=== PATIENT | female | born 1965 | race Caucasian/White ===

== ENCOUNTER → 2020-08-28 09:56 | Outpatient (BNV) | payer OTHER, SELFPAY | PROVIDERS: PCP Internal Medicine; Visit Provider Internal Medicine | DX: C50.911 Malignant neoplasm of unspecified site of right female breast (principal) | CPT/HCPCS: 99213; 99214 ==

== ENCOUNTER 2020-09-03 10:42 | Outpatient (REF) | payer OTHER, SELFPAY ==
[2020-09-03 14:33] LABS: Alanine Aminotransferase 12 U/L (0-31); Albumin Level 4.2 g/dL (3.5-5.0); Alkaline Phosphatase 106 U/L (39-117); Anion Gap 12 (12-20); Aspartate Amino Transferase 13 U/L (5-31); Bilirubin Total 0.3 mg/dL (0.0-1.0); Blood Urea Nitrogen 14 mg/dL (9-16); Calcium 9.3 mg/dL (8.4-10.2); Carbon Dioxide 26 mmol/L (22-29); Chloride 107 mmol/L (96-108); Cholesterol 215 mg/dL; Estimated Glomerular Filt Rate > 60; Glucose Fasting 79 mg/dL (60-99); HDL Cholesterol 47 mg/dL; LDL Cholesterol Calculated 108 mg/dl; Potassium 3.9 mmol/l (3.3-5.1); Sodium 141 mmol/L (135-145); Total Protein 6.7 g/dL (6.5-8.0); Triglycerides 303 mg/dL
[2020-09-03 14:55] LABS: Vitamin D 25-OH Total 59.7 ng/mL (>30)
== END 2020-09-03 10:43 | disposition home or self-care (01) ==
LOC: HO.HMGCLDS 10:42
PROVIDERS: PCP Internal Medicine; Visit Provider Internal Medicine
DX: E55.9 Vitamin D deficiency, unspecified (principal); Z78.0 Asymptomatic menopausal state; I10 Essential (primary) hypertension; E78.1 Pure hyperglyceridemia; C50.911 Malignant neoplasm of unspecified site of right female breast
CPT/HCPCS: 80053; 80061; 82306

== ENCOUNTER 2020-09-30 06:50 | Day surgery (SDC) | payer OTHER, SELFPAY ==
[2020-09-23 15:41] VITALS: BMI 42.1
--- NOTE | 2020-09-26 10:00 | MHC.SHP ---
Pre-Procedural Eval Section A The patient is an INPATIENT: No The History & Physical has been completed within 30 days and I have reviewed it.: Yes Section B Chief Complaint: cataract left eye Allergies: Allergies Allergy/AdvReac Type Severity Reaction Status Date / Time lisinopril [LISINOPRIL] Allergy Unknown COUGH Verified 09/23/20 15:19 metoprolol [METOPROLOL] Allergy Unknown ANKLE Verified 09/23/20 15:19 SWELLING, swelling Plan Diagnosis/Plan: Unchanged I have reviewed the history and physical and performed a pertinent physical examination on my patient. No changes have occurred unless specified.
--- NOTE | 2020-09-27 09:51 | HO.ANESPROP2 ---
Documented by User: Mariela Gonzalez 09/27/20 09:53 HPI - Anesthesia Eval Consult details Narrative: 55yo F for Cataract Extraction IOL Insertion PCP Cleared No prev cataract on record [facility] Past Medical History Medical History (Updated 09/16/20 @ 12:56 by Carline Kruse MD) Essential hypertension Hypertriglyceridemia Infiltrating ductal carcinoma of right breast Menopause Morbid obesity Tubular adenoma of colon Vitamin D deficiency Family History Family History Father Unknown family medical history Mother Depression Lung cancer Smoker Brother No problems noted. Brother No problems noted. Son No problems noted. Son No problems noted. Daughter No problems noted. Daughter No problems noted. Surgical History Surgical History History of colonoscopy History of lumpectomy of right breast Social History Social History Are you a primary health care sanitary technician to a significant other at home: No Do you presently have visiting nurse or other home services: No Alcohol intake: never Smoking Status: Never smoker Second Hand Smoke Exposure: No Use of substances other than those prescribed or required for medical reasons: No Advance Directives: No Advance Directives Information Provided: No Advance Directives on File: No Recently lost weight without trying: No Meds Allergies Allergy/AdvReac Type Severity Reaction Status Date / Time lisinopril [LISINOPRIL] Allergy Unknown COUGH Verified 09/30/20 08:03 metoprolol [METOPROLOL] Allergy Unknown ANKLE Verified 09/30/20 08:03 SWELLING, swelling Home Medications Medication Instructions Recorded Confirmed Type valsartan-hydrochlorothiazide 1 tab PO DAILY 08/28/20 09/23/20 History cholecalciferol (vitamin D3) 50 50 mcg PO DAILY 09/16/20 09/23/20 History mcg (2,000 unit) capsule flu vacc [id number] 6mos up(PF) ml IM ONCE 09/16/20 History magnesium 200 mg tablet 200 mg PO DAILY 09/16/20 09/23/20 History phytonadione (vitamin K1) 100 mcg 100 mcg PO DAILY 09/16/20 09/23/20 History tablet Exam Exam Date and Time: September 27, 2020 0951 Height,Weight and Vital Signs: Height 5 ft 3 in Weight 107.955 kg Assessment and Plan Assessment Anesthesia Assessment: Chart Reviewed Documented by User: Nani Cassidy 09/30/20 08:07 [facility] Past Medical History Medical History (Updated 09/16/20 @ 12:56 by Carline Kruse MD) Essential hypertension Hypertriglyceridemia Infiltrating ductal carcinoma of right breast Menopause Morbid obesity Tubular adenoma of colon Vitamin D deficiency Family History Family History Father Unknown family medical history Mother Depression Lung cancer Smoker Brother No problems noted. Brother No problems noted. Son No problems noted. Son No problems noted. Daughter No problems noted. Daughter No problems noted. Surgical History Surgical History History of colonoscopy History of lumpectomy of right breast Social History Social History Are you a primary health care sanitary technician to a significant other at home: No Do you presently have visiting nurse or other home services: No Alcohol intake: never Smoking Status: Never smoker Second Hand Smoke Exposure: No Use of substances other than those prescribed or required for medical reasons: No Advance Directives: No Advance Directives Information Provided: No Advance Directives on File: No Recently lost weight without trying: No Meds Allergies Allergy/AdvReac Type Severity Reaction Status Date / Time lisinopril [LISINOPRIL] Allergy Unknown COUGH Verified 09/30/20 08:03 metoprolol [METOPROLOL] Allergy Unknown ANKLE Verified 09/30/20 08:03 SWELLING, swelling Home Medications Medication Instructions Recorded Confirmed Type valsartan-hydrochlorothiazide 1 tab PO DAILY 08/28/20 09/23/20 History cholecalciferol (vitamin D3) 50 50 mcg PO DAILY 09/16/20 09/23/20 History mcg (2,000 unit) capsule flu vacc [id number] 6mos up(PF) ml IM ONCE 09/16/20 History magnesium 200 mg tablet 200 mg PO DAILY 09/16/20 09/23/20 History phytonadione (vitamin K1) 100 mcg 100 mcg PO DAILY 09/16/20 09/23/20 History tablet Exam Airway Mallampati Class: III TM Dist: >3cm Neck ROM: Full Heart: RRR Lungs: CTA BL Assessment and Plan Assessment Anesthesia Assessment: Anesthesia Plan Discussed and Chart Reviewed Final Anesthetic Review NPO: Yes (Sip of water with meds) ASA Class: III Final Preanesthetic Review: Meds/Allgs Chart Reviewed and Consent Obtained/Reviewed Patient Risk: Low Procedure Risk: Low Anesthetic Plan Disposition: Standard PACU
[2020-09-30 08:05] VITALS: BP 183/100; PULSE 58; RESP 16; TEMP 36.8; O2SAT 96
[2020-09-30] MEDS: Tetracaine HCl/PF 0.5% Oph Sol 4 ML DROPS 1 DROP EYE-LEFT (08:23)
[2020-09-30] MEDS: Phenylephrine HCL 2.5% Oph SoL 2 ML BOTTLE 1 DROP EYE-LEFT ×3 (08:26→08:34)
[2020-09-30] MEDS: Tropicamide 1 % Ophth Sol 3 ML BTL 1 DROP EYE-LEFT ×3 (08:27→08:36)
[2020-09-30] MEDS: Lactated Ringers 500 ML 50 ML IV (08:37)
--- NOTE | 2020-09-30 09:13 | HO.PNOPHT ---
Ophthalmology Procedure Procedure Date of Service: 09/30/20 Ophthalmology Viscoelastic: Healon Duet Dual Pack Pro Ophthalmology Lenses: TECLAURA [id number] (15) Procedure Notes: PREOPERATIVE DIAGNOSIS: Decreased visual acuity left eye secondary to cataract POSTOPERATIVE DIAGNOSIS: Same PROCEDURE: Left cataract extraction with intraocular lens insertion SURGEON: Douglas Baron M.D. ANESTHESIA: Topical/MAC ESTIMATED BLOOD LOSS: None COMPLICATIONS: None After obtaining informed consent, the patient was brought to the operation room suite and placed in the supine position. After adequate sedation per anesthesia, topical drops of Tetracaine were given to the left eye. The eye was then prepped and draped in the usual sterile fashion. The operating room microscope was then positioned over the operative eye and a lid speculum placed. A paracentesis was created. Viscoelastic was then instilled into the anterior chamber. A three plane incision was then created temporally, utilizing a 2.85 mm keratome. Capsulotomy forceps were then utilized to create a circular tear capsulotomy. Hydrodissection and hydrodelineation were carried out until adequate mobilization of the nucleus occurred. Phacoemulsification was then utilized to remove the dense central nucleus followed by removal of the cortical material utilizing the automated aspiration irrigation unit. Viscoat elastic was instilled into the posterior capsular bag followed by placement of a posterior chamber intraocular lens without difficulty. The residual Viscoat elastic was then removed utilizing the automated IA machine. The wound was check and found to be watertight. The patient tolerated the procedure well and the lid speculum was removed. Intracameral injection of Vigamox 0.1 mL followed by a subtenon injection of Kenalog-40 0.2 mL were administered. The patient will be seen in the a.m.
[2020-09-30 09:14] VITALS: BP 179/88; PULSE 56; RESP 16; TEMP 36.6; O2SAT 97
--- NOTE | 2020-09-30 09:15 | HO.POSTANES ---
Post Anesthesia Evaluation Post Anesthesia Evaluation Vital Signs: Vital Signs Temp Pulse Resp BP Pulse Ox 09/30/20 08:05 98.3 F 58 16 183/100 H 96 Anesthesia: Monitored Mental Status: Awake Pain Control: Satisfactory Nausea/Vomiting: None Hydration: Adequate Anesthesia-Related Issues: No Anes. Related Issues
== END 2020-09-30 09:27 | disposition home or self-care (01) ==
PROVIDERS: PCP Internal Medicine; Visit Provider Ophthalmology
PROC: (CPT 66985; principal; 2020-09-30 09:30)
DX: H25.12 Age-related nuclear cataract, left eye (principal); H54.7 Unspecified visual loss; I10 Essential (primary) hypertension; E55.9 Vitamin D deficiency, unspecified; E66.01 Morbid (severe) obesity due to excess calories; Z68.41 Body mass index [BMI] 40.0-44.9, adult; C50.911 Malignant neoplasm of unspecified site of right female breast; Z79.811 Long term (current) use of aromatase inhibitors; Z79.899 Other long term (current) drug therapy
CPT/HCPCS: 66984; J2250; J3010; J3300; V2632

== ENCOUNTER 2020-10-14 06:47 | Day surgery (SDC) | payer OTHER, SELFPAY ==
[2020-09-23 15:46] VITALS: BMI 42.1
--- NOTE | 2020-10-10 16:08 | MHC.SHP ---
Pre-Procedural Eval Section A The patient is an INPATIENT: No The History & Physical has been completed within 30 days and I have reviewed it.: Yes Section B Chief Complaint: cataract right eye Allergies: Allergies Allergy/AdvReac Type Severity Reaction Status Date / Time lisinopril [LISINOPRIL] Allergy Unknown COUGH Verified 09/30/20 08:03 metoprolol [METOPROLOL] Allergy Unknown ANKLE Verified 09/30/20 08:03 SWELLING, swelling Plan Diagnosis/Plan: Unchanged I have reviewed the history and physical and performed a pertinent physical examination on my patient. No changes have occurred unless specified.
--- NOTE | 2020-10-14 07:45 | P.CONAN_ITS ---
[facility], [facility] Active Problems Active Problems: All Active Problems (Updated 09/16/20 @ 12:56 by Carline nichols MD) Morbid obesity (Acute) Vitamin D deficiency (Acute) Menopause (Acute) Infiltrating ductal carcinoma of right breast (Chronic) Hypertriglyceridemia (Acute) Essential hypertension (Acute) Past Medical History Medical History Essential hypertension Hypertriglyceridemia Infiltrating ductal carcinoma of right breast Menopause Morbid obesity Tubular adenoma of colon Vitamin D deficiency Family History Family History Father Unknown family medical history Mother Depression Lung cancer Smoker Brother No problems noted. Brother No problems noted. Son No problems noted. Son No problems noted. Daughter No problems noted. Daughter No problems noted. Surgical History Surgical History History of colonoscopy History of lumpectomy of right breast Social History Social History Are you a primary resident care manager rn to a significant other at home: No Do you presently have visiting nurse or other home services: No Alcohol intake: never Smoking Status: Never smoker Second Hand Smoke Exposure: No Use of substances other than those prescribed or required for medical reasons: No Have you been hit, kicked, punched, or otherwise hurt by someone within the past year? If so, by whom?: No Advance Directives: No Advance Directives Information Provided: No Advance Directives on File: No Recently lost weight without trying: No Meds Allergies Allergy/AdvReac Type Severity Reaction Status Date / Time lisinopril [LISINOPRIL] Allergy Unknown COUGH Verified 09/30/20 08:03 metoprolol [METOPROLOL] Allergy Unknown ANKLE Verified 09/30/20 08:03 SWELLING, swelling Home Medications Medication Instructions Recorded Confirmed Type cholecalciferol (vitamin D3) 50 50 mcg PO DAILY 09/16/20 09/23/20 History mcg (2,000 unit) capsule flu vacc [id number] 6mos up(PF) ml IM ONCE 09/16/20 History magnesium 200 mg tablet 200 mg PO DAILY 09/16/20 09/23/20 History phytonadione (vitamin K1) 100 mcg 100 mcg PO DAILY 09/16/20 09/23/20 History tablet Exam Exam Date and Time: October 14, 2020 5488 Height,Weight and Vital Signs: Height 5 ft 3 in Weight 107.955 kg Airway Mallampati Class: II TM Dist: >3cm Neck ROM: Full Loose/Missing/Broken Teeth: No Heart: RRR Lungs: CTA Assessment and Plan Assessment Anesthesia Assessment: Anesthesia Plan Discussed and Chart Reviewed Final Anesthetic Review NPO: Yes ASA Class: II Final Preanesthetic Review: Meds/Allgs Chart Reviewed, Consent Obtained/Reviewed and Anes Risks/Benef Reviewed Patient Risk: Low Procedure Risk: Low Anesthetic Plan Anesthetic Plan: MAC: Disposition: Standard PACU
[2020-10-14 07:46] VITALS: BP 152/82; PULSE 65; RESP 16; TEMP 36.5; O2SAT 96
[2020-10-14] MEDS: Tetracaine HCl/PF 0.5% Oph Sol 4 ML DROPS 1 DROP EYE-RIGHT (07:55)
[2020-10-14] MEDS: Tropicamide 1 % Ophth Sol 3 ML BTL 1 DROP EYE-RIGHT ×3 (07:56→08:06)
[2020-10-14] MEDS: Phenylephrine HCL 2.5% Oph SoL 2 ML BOTTLE 1 DROP EYE-RIGHT ×3 (08:00→08:08)
[2020-10-14] MEDS: Lactated Ringers 500 ML 50 ML IV (08:05)
--- NOTE | 2020-10-14 09:03 | HO.PNOPHT ---
Ophthalmology Procedure Procedure Date of Service: 10/14/20 Ophthalmology Viscoelastic: Healon Duet Dual Pack Pro Ophthalmology Lenses: TECNIS [id number] (15.5) Procedure Notes: PREOPERATIVE DIAGNOSIS: Decreased visual acuity right eye secondary to cataract POSTOPERATIVE DIAGNOSIS: Same PROCEDURE: Right cataract extraction with intraocular lens insertion SURGEON: Douglas Baron M.D. ANESTHESIA: Topical/MAC ESTIMATED BLOOD LOSS: None COMPLICATIONS: None After obtaining informed consent, the patient was brought to the operating room suite and placed in the supine position. After adequate sedation per anesthesia, topical drops of Tetracaine were given to the right eye. The eye was then prepped and draped in the usual sterile fashion. The operating room microscope was then positioned over the operative eye and a lid speculum placed. A paracentesis was created. Viscoelastic was then instilled into the anterior chamber. A three plane incision was then created temporally, utilizing a 2.85 mm keratome. Capsulotomy forceps were then utilized to create a circular tear capsulotomy. Hydrodissection and hydrodelineation were carried out until adequate mobilization of the nucleus occurred. Phacoemulsification was then utilized to remove the dense central nucleus followed by removal of the cortical material utilizing the automated aspiration irrigation unit. Viscoelastic was instilled into the posterior capsular bag followed by placement of a posterior chamber intraocular lens without difficulty. The residual Viscoelastic was then removed utilizing the automated IA machine. The wound was checked and found to be watertight. The patient tolerated the procedure well and the lid speculum was removed. Intracameral injection of Vigamox 0.1 mL followed by a subtenon injection of Kenalog-40 0.2 mL were administered. The patient will be seen in the a.m.
[2020-10-14 09:07] VITALS: BP 145/76; PULSE 54; RESP 16; TEMP 36.6; O2SAT 97
--- NOTE | 2020-10-14 09:08 | HO.POSTANES ---
Post Anesthesia Evaluation Post Anesthesia Evaluation Vital Signs: Vital Signs Temp Pulse Resp BP Pulse Ox 10/14/20 07:46 97.7 F 65 16 152/82 H 96 Anesthesia: Monitored Mental Status: Awake Pain Control: Satisfactory Nausea/Vomiting: None Hydration: Adequate Anesthesia-Related Issues: No Anes. Related Issues
== END 2020-10-14 09:40 | disposition home or self-care (01) ==
PROVIDERS: PCP Internal Medicine; Visit Provider Ophthalmology
PROC: (CPT 66985; principal; 2020-10-14 08:40)
DX: H25.11 Age-related nuclear cataract, right eye (principal); I10 Essential (primary) hypertension; Z79.899 Other long term (current) drug therapy
CPT/HCPCS: 66984; J2250; J3010; J3300; V2632

== ENCOUNTER 2021-02-18 10:49 | Outpatient (REF) | payer OTHER, SELFPAY ==
[2021-02-18 13:49] LABS: MANUAL DIFF FLAG NO
[2021-02-18 14:13] LABS: Basophils Absolute Auto 0.1 X10*3/uL (0.0-0.2); Basophils Percent Auto 0.7 % (0-2); Eosinophils Absolute Auto 0.1 X10*3/uL (0.0-0.4); Eosinophils Percent Auto 1.8 % (0-4); Hematocrit 42.8 % (37-47); Hemoglobin 14.1 g/dl (12.0-16.0); Imm Gran Abs Auto 0.02 X10*3/uL (0.00-0.03); Imm Gran Pct Auto 0.3 % (0.0-0.4); Lymphocytes Percent Auto 26.9 % (20-40); Mean Corpuscular HGB Conc 32.9 g/dl (31.0-35.0); Mean Corpuscular Hemoglobin 28.7 pg (27.0-33.0); Mean Platelet Volume 10.2 fL (9.4-12.3); Monocytes Absolute Auto 0.7 X10*3/uL (0.1-1.2); Monocytes Percent Auto 9.4 % (2-11); Neutrophils Absolute Auto 4.4 X10*3/uL (2.0-8.3); Neutrophils Percent Auto 60.9 % (45-73); Platelet Count 252 X10*3/uL (160-400); Red Blood Count 4.92 X10*6/uL (4.20-5.50); Red Cell Distribution Width 12.9 % (11.0-16.0); White Blood Count 7.3 X10*3/uL (4.8-10.8)
[2021-02-18 14:42] LABS: Glucose Fasting 72 mg/dL (60-99)
[2021-02-18 15:13] LABS: Alanine Aminotransferase 13 U/L (0-31); Albumin Level 4.3 g/dL (3.5-5.0); Alkaline Phosphatase 99 U/L (39-117); Anion Gap 12 (12-20); Aspartate Amino Transferase 16 U/L (5-31); Bilirubin Total 0.5 mg/dL (0.0-1.0); Blood Urea Nitrogen 18 mg/dL (9-16); Calcium 9.8 mg/dL (8.4-10.2); Carbon Dioxide 27 mmol/L (22-29); Chloride 108 mmol/L (96-108); Cholesterol 221 mg/dL; Estimated Glomerular Filt Rate > 60; Glucose Random 71 mg/dL (60-115); HDL Cholesterol 49 mg/dL; LDL Cholesterol Calculated 124 mg/dl; Potassium 4.3 mmol/L (3.3-5.1); Sodium 143 mmol/L (135-145); Total Protein 6.8 g/dL (6.5-8.0); Triglycerides 241 mg/dL
== END 2021-02-18 10:50 | disposition home or self-care (01) ==
LOC: HO.HMGCLDS 10:49
PROVIDERS: Internal Medicine; PCP Internal Medicine; Visit Provider Internal Medicine
DX: Z00.01 Encounter for general adult medical examination with abnormal findings (principal); R59.0 Localized enlarged lymph nodes; E78.00 Pure hypercholesterolemia, unspecified; E66.01 Morbid (severe) obesity due to excess calories; E55.9 Vitamin D deficiency, unspecified; E78.1 Pure hyperglyceridemia; I10 Essential (primary) hypertension; C50.911 Malignant neoplasm of unspecified site of right female breast; Z78.0 Asymptomatic menopausal state
CPT/HCPCS: 36415; 80053; 80061; 82306; 82947; 85025

== ENCOUNTER 2021-02-27 07:20 | Outpatient (REF) | payer OTHER, SELFPAY ==
--- NOTE | ~2021-02-27 | MM_ITS ---
EXAMINATION: MM SCREENING DIGITAL BREAST TOMOSYNTHESIS, BILATERAL CLINICAL INFORMATION: Screening. Asymptomatic. Right lumpectomy for invasive breast cancer, 2014. Due for yearly. COMPARISON: Mammography: 02/19/2020, 12/15/2018, 12/02/2017, 10/19/2016 TECHNIQUE: Digital breast tomosynthesis is performed in both the craniocaudal and mediolateral oblique views along with computer-aided detection (CAD). Synthesized 2D images are generated from the tomosynthesis. FINDINGS: There are scattered areas of fibroglandular density (ACR BI-RADS breast composition Category b). Parenchymal pattern is similar to prior studies. There is no interval mass or architectural abnormality or abnormal calcifications in either breast. The right breast has post therapy changes with stable scarring posterior upper breast along with regional coarse benign dystrophic calcifications. There are no significant changes from prior studies. MM/MM tomosynthesis screening BI IMPRESSION: No significant changes from prior exams. Post therapy changes right breast. ASSESSMENT: BI-RADS 2: Benign RECOMMENDATION: Routine annual mammography screening. This patient's information was entered into a reminder system with a target due date for their next mammogram.
== END 2021-02-27 07:21 | disposition home or self-care (01) ==
LOC: HO.MAMMO 07:20
PROVIDERS: Visit Provider Internal Medicine
DX: Z12.31 Encounter for screening mammogram for malignant neoplasm of breast (principal)
CPT/HCPCS: 77063; 77067

== ENCOUNTER 2021-03-21 13:20 | Outpatient (REF) | payer OTHER, SELFPAY ==
--- NOTE | ~2021-03-21 | MM_ITS ---
EXAMINATION: BONE DENSITOMETRY CLINICAL INDICATION: On letrozole. COMPARISON: Baseline BD dated 10/11/2015. TECHNIQUE: Using a [employer] DXA System (software version: 13.1) manufactured by [employer] dual-energy x-ray absorptiometry was performed of the lumbar spine and left hip. The images are of good technical quality. Summary results are attached. FINDINGS: AP SPINE L1-L4: Current: BMD 1.172 g/cm2, Z-score -0.2, T-score -0.1, normal, 1.7% decrease from baseline (<5% change is not significant). Baseline: BMD 1.192 g/cm2. LEFT FEMUR, NECK: Current: BMD 0.803 g/cm2, Z-score -1.3, T-score -1.7, osteopenia. Baseline: BMD 0.936 g/cm2. LEFT FEMUR, TOTAL: Current: BMD 0.908 g/cm2, Z-score -0.8, T-score -0.8, normal, 6.1% decrease from baseline (<5% change is not significant). Baseline: BMD 0.967 g/cm2. IDENTIFIED RISK FACTORS: Low calcium intake. Menopause. Thiazide. HISTORY OF FRACTURE: None listed. MEDICATIONS: Multivitamin. Vitamin D. Letrozole. MM/XR DEXA axial skeleton IMPRESSION: 1. DIAGNOSIS: Osteopenia based on the lowest T-score value of -1.7 in the femoral neck applying World Health Organization criteria. 2. 10-YEAR FRACTURE RISK PREDICTION, FRAX: Major osteoporotic fracture (clinical spine, forearm, hip or shoulder) 6.8%. Hip fracture 0.6%. 3. Treatment Recommendations: NOF guidelines recommend consideration for treatment in postmenopausal women and men age 50 and older presenting with the following: -A hip or vertebral (clinical or morphometric) fracture. -T-score less than or equal to -2.5 at the femoral neck or spine after appropriate evaluation to exclude secondary causes. -Low bone mass at the hip or spine and a 10-year fracture probability by FRAX of greater than or equal to 3% for hip fracture or greater than or equal to 20% for major osteoporotic fracture based on the [place] adapted WHO algorithm. 4. Other Recommendations: All treatment decisions require clinical judgment and consideration of individual patient factors, including patient preferences, comorbidities, previous drug use, risk factors not captured in the FRAX model (e.g. frailty, falls, vitamin D deficiency, increased bone turnover, interval significant decline in bone density) and possible under or overestimation of fracture risk by FRAX. Additional medical evaluation for secondary cause of low bone mineral density may be appropriate. FUTURE SCAN RECOMMENDATION: People with diagnosed cases of osteoporosis or at high risk for fracture should have regular bone mineral density tests. For patients eligible for Medicare, routine testing is allowed once every 2 years. The testing frequency can be increased to one year for patients who have rapidly progressing disease, those who are receiving or discontinuing medical therapy to restore bone mass, or have additional risk factors.
== END 2021-03-21 13:21 | disposition home or self-care (01) ==
LOC: HO.MAMMO 13:20
PROVIDERS: Visit Provider Internal Medicine
DX: Z13.820 Encounter for screening for osteoporosis (principal); M81.0 Age-related osteoporosis without current pathological fracture; M85.80 Other specified disorders of bone density and structure, unspecified site; Z78.0 Asymptomatic menopausal state; Z79.899 Other long term (current) drug therapy
CPT/HCPCS: 77080

== ENCOUNTER 2022-02-19 10:03 | Outpatient (REF) | payer OTHER, SELFPAY ==
[2022-02-19 11:17] LABS: MANUAL DIFF FLAG NO
[2022-02-19 11:24] LABS: Basophils Absolute Auto 0.1 X10*3/uL (0.0-0.2); Basophils Percent Auto 0.6 % (0-2); Eosinophils Absolute Auto 0.1 X10*3/uL (0.0-0.4); Eosinophils Percent Auto 1.7 % (0-4); Hematocrit 43.1 % (37.0-47.0); Hemoglobin 14.4 g/dl (12.0-16.0); Imm Gran Abs Auto 0.03 X10*3/uL (0.00-0.03); Imm Gran Pct Auto 0.4 % (0.0-0.4); Lymphocytes Absolute Auto 2.1 X10*3/uL (1.2-4.9); Lymphocytes Percent Auto 25.2 % (20-40); Mean Corpuscular HGB Conc 33.4 g/dl (31.0-35.0); Mean Corpuscular Hemoglobin 28.6 pg (27.0-33.0); Mean Corpuscular Volume 85.5 fL (80.0-98.0); Mean Platelet Volume 10.1 fL (9.4-12.3); Monocytes Absolute Auto 0.7 X10*3/uL (0.1-1.2); Monocytes Percent Auto 8.6 % (2-11); Neutrophils Absolute Auto 5.4 x10*3/uL (2.0-8.3); Neutrophils Percent Auto 63.5 % (45-73); Platelet Count 260 X10*3/uL (160-400); Red Blood Count 5.04 X10*6/uL (4.20-5.50); Red Cell Distribution Width 12.8 % (11.0-16.0); White Blood Count 8.4 X10*3/uL (4.8-10.8)
[2022-02-19 11:38] LABS: Alanine Aminotransferase 14 U/L (0-31); Anion Gap 12 (12-20); Aspartate Amino Transferase 15 U/L (5-31); Blood Urea Nitrogen 19 mg/dL (9-16); Calcium 9.6 mg/dL (8.4-10.2); Carbon Dioxide 27 mmol/L (22-29); Chloride 106 mmol/L (96-108); Cholesterol 216 mg/dL; Estimated Glomerular Filt Rate > 60; Glucose Fasting 84 mg/dL (60-99); HDL Cholesterol 46 mg/dL; LDL Cholesterol Calculated 137 mg/dl; Potassium 4.4 mmol/L (3.3-5.1); Sodium 141 mmol/L (135-145); Triglycerides 167 mg/dL
[2022-02-19 12:02] LABS: Vitamin D 25-OH Total 51.5 ng/mL (>30)
== END 2022-02-19 10:04 | disposition home or self-care (01) ==
LOC: HO.HMGCLDS 10:03
PROVIDERS: Visit Provider Internal Medicine
DX: Z00.01 Encounter for general adult medical examination with abnormal findings (principal); C50.911 Malignant neoplasm of unspecified site of right female breast; E55.9 Vitamin D deficiency, unspecified; E66.01 Morbid (severe) obesity due to excess calories; E78.1 Pure hyperglyceridemia; I10 Essential (primary) hypertension; Z78.0 Asymptomatic menopausal state; Z79.811 Long term (current) use of aromatase inhibitors
CPT/HCPCS: 36415; 80048; 80061; 82306; 84450; 84460; 85025

== ENCOUNTER 2022-03-02 07:41 | Outpatient (REF) | payer OTHER, SELFPAY ==
--- NOTE | ~2022-03-02 | MM_ITS ---
EXAMINATION: MM SCREENING DIGITAL BREAST TOMOSYNTHESIS, BILATERAL CLINICAL INFORMATION: Screening. Asymptomatic. Prior history right invasive breast cancer status post lumpectomy, 2013. COMPARISON: Mammography: 02/27/2021, 02/19/2020, 12/15/2018 TECHNIQUE: Digital breast tomosynthesis is performed in both the craniocaudal and mediolateral oblique views along with computer-aided detection (CAD). Synthesized 2D images are generated from the tomosynthesis. Additional bilateral MLO views are provided. FINDINGS: There are scattered areas of fibroglandular density (ACR BI-RADS breast composition Category b). Parenchymal pattern is similar to prior exams and there is no developing density or interval mass or interval architectural abnormality. There are scattered bilateral benign calcifications again seen. Right breast shows post therapy changes with old scarring and dystrophic calcifications as before. The axilla are unremarkable. No significant changes. MM/MM tomosynthesis screening BI IMPRESSION: No mammographic evidence of malignancy. Post therapy changes right breast. ASSESSMENT: BI-RADS 2: Benign RECOMMENDATION: Routine annual mammography screening. This patient's information was entered into a reminder system with a target due date for their next mammogram.
== END 2022-03-02 07:42 | disposition home or self-care (01) ==
LOC: HO.MAMMO 07:41
PROVIDERS: PCP Internal Medicine; Visit Provider Internal Medicine
DX: Z12.31 Encounter for screening mammogram for malignant neoplasm of breast (principal)
CPT/HCPCS: 77063; 77067

== ENCOUNTER 2022-05-04 14:35 | Outpatient (REF) | payer OTHER, SELFPAY ==
[2022-05-07 20:32] LABS: HPV mRNA E6/E7 rflx Not Detected (Not Detected)
== END 2022-05-04 14:36 | disposition home or self-care (01) ==
LOC: HO.LAB 14:35
PROVIDERS: Visit Provider Obstetrics & Gynecology
DX: Z01.419 Encounter for gynecological examination (general) (routine) without abnormal findings (principal); Z11.51 Encounter for screening for human papillomavirus (HPV)
CPT/HCPCS: 87624; 88142

== ENCOUNTER → 2022-11-10 09:15 | Outpatient (BNVA) | payer OTHER, SELFPAY | PROVIDERS: PCP Internal Medicine; Visit Provider Nurse Practitioner Family | DX: G47.33 Obstructive sleep apnea (adult) (pediatric) (principal); E66.01 Morbid (severe) obesity due to excess calories; Z68.42 Body mass index [BMI] 45.0-49.9, adult; I10 Essential (primary) hypertension; Z99.89 Dependence on other enabling machines and devices | CPT/HCPCS: 99202 ==

== ENCOUNTER → 2022-12-03 19:30 | Outpatient (REF) | payer OTHER, SELFPAY | LOC: HO.SL 19:30 | PROVIDERS: PCP Internal Medicine; Visit Provider Nurse Practitioner Family | DX: G47.33 Obstructive sleep apnea (adult) (pediatric) (principal) | CPT/HCPCS: 95810 ==

== ENCOUNTER 2023-03-03 12:41 | Outpatient (REF) | payer OTHER, SELFPAY ==
--- NOTE | ~2023-03-03 | MM_ITS ---
EXAMINATION: MM SCREENING DIGITAL BREAST TOMOSYNTHESIS, BILATERAL CLINICAL INFORMATION: Screening. Asymptomatic. History of prior treated right breast cancer. COMPARISON: Mammography: This study is compared to prior mammograms dating back to 2018. TECHNIQUE: Digital breast tomosynthesis is performed in both the craniocaudal and mediolateral oblique views along with computer-aided detection (CAD). Synthesized 2D images are generated from the tomosynthesis. FINDINGS: There are scattered areas of fibroglandular density (ACR BI-RADS breast composition Category b). There are no significant masses, abnormal calcifications, or other abnormalities. There are postsurgical changes in the upper-outer quadrant of the right breast. There are coarse, benign, dystrophic calcifications in the area of the surgical bed in the right upper-outer quadrant. MM/MM tomosynthesis screening BI IMPRESSION: No mammographic evidence of malignancy. ASSESSMENT: BI-RADS BI-RADS 2 - Benign Findings RECOMMENDATION: Routine annual mammography screening. 1 year F/U This patient's information was entered into a reminder system with a target due date for their next mammogram.
== END 2023-03-03 12:42 | disposition home or self-care (01) ==
LOC: HO.MAMMO 12:41
PROVIDERS: PCP Internal Medicine; Visit Provider Internal Medicine
DX: Z12.31 Encounter for screening mammogram for malignant neoplasm of breast (principal)
CPT/HCPCS: 77063; 77067

== ENCOUNTER → 2023-03-03 13:00 | Outpatient (BNV) | payer OTHER, SELFPAY | PROVIDERS: PCP Internal Medicine; Visit Provider Radiology Diagnostic Radiology | DX: Z12.31 Encounter for screening mammogram for malignant neoplasm of breast (principal) | CPT/HCPCS: 77063; 77067 ==

== ENCOUNTER 2023-03-30 09:17 | Outpatient (AMB) | payer OTHER, SELFPAY ==
[2023-03-30 09:18] VITALS: BP 170/104; PULSE 66; O2SAT 98; BMI 45.3
--- NOTE | 2023-03-30 09:18 | MHC.OFFVIS ---
Intake Vital Signs 03/30/23 09:18 Height 5 ft 3 in Weight 256 lb BMI 45.3 BP 170/104 H Blood Pressure Location Rt brachial Position Sitting Pulse 66 Pulse Source Pulse Oximeter Pulse Oximetry (%) 98 Oxygen Delivery Method Room Air Intake Visit Reasons: 2 mo follow up for REGIS - Confirmed Intake Note: Patient presents for 2 month follow up REGIS. 'I just got my new machine Allergies lisinopril [LISINOPRIL] Allergy (Unknown, Verified 03/30/23 09:20) COUGH metoprolol [METOPROLOL] Allergy (Unknown, Verified 03/30/23 09:20) ANKLE SWELLING, swelling HPI HPI Comments History of Present Illness Details 57 y/o female patient presents for follow up of sleep study. The PSG sleep study result was significant for moderate degree of sleep apnea with increased severity in REM. The AHI was 16/hr, REM AHI was 73/hr and oxygen arlin was 82%. Pt started APAP [id number]. The compliance and therapy response (01/14/23-03/21/23) reviewed. The usage days 100% and the average usage hours 8 hours 20 min. The mean pressure was 7.1 and AHI was 1.4/hr. Pt reports that she feels not getting enough air with starting pressure. She was on 7-11 cmH2O and she used to start with pressure 7 cmH2O. Pt states that she is sleeping better with new CPAP, feels more rested at night. She has more energy during the daytime and tries to do exercise and manage diet. However, she has hard time to lose wt and interested in wt management consultation regarding gastric balloon. [facility] Medical History Breast cancer Essential hypertension Hypertriglyceridemia Infiltrating ductal carcinoma of right breast Menopause Morbid obesity REGIS on CPAP Tubular adenoma of colon Vitamin D deficiency Surgical History History of colonoscopy History of lumpectomy of right breast Hx of cataract extraction Family History Father Unknown family medical history Cancer Pneumonia due to COVID-19 virus Mother Depression Mental health disorder Lung cancer Smoker Brother No problems noted. Brother No problems noted. Son No problems noted. Son No problems noted. Daughter No problems noted. Daughter No problems noted. Paternal Grandmother Cancer Social History Household Members: Spouse Housing: House Are you a primary career development consultant to a significant other at home: No Do you presently have visiting nurse or other home services: No Alcohol intake: current Alcohol intake frequency: holidays/special occasions only Patient Tobacco Use Status: Never used Tobacco e-Cigarette/Vaping Use: Never Used Second Hand Smoke Exposure: No service: No Current occupational status: employed Cognitive needs: No Hearing needs: No Vision needs: No Review of Systems Const All systems reviewed & are unremarkable except as noted in HPI and below ENT Reports Normal hearing present Neuro Reports Normal hearing present Physical Exam Vital Signs: Last Vital Signs Pulse 66 03/30/23 09:18 BP 170/104 H 03/30/23 09:18 Pulse Ox 98 03/30/23 09:18 Oxygen Delivery Method Room Air 03/30/23 09:18 BMI result Body Mass Index 45.3 Const General: cooperative Nutritional Appearance: obese Orientation/consciousness: patient oriented x3 HEENT Throat: Yes other (mallampati grade 4 ) Neck Neck: Yes full ROM and Yes supple Resp Effort & Inspection: normal respiratory effort and able to speak in complete sentences Neuro General: patient oriented x3, gait normal and moves all extremities Cranial nerves: Yes Bilaterally intact EOM present, Yes Normal facial strength present, Yes Midline tongue present, Yes Symmetric palate elevation present, Yes Normal hearing present, Yes Ability to bilaterally rotate head present and Yes Ability to bilaterally elevate shoulders present Cognition (Neuro): normal cognition Gait exam (Neuro): Normal gait present Motor exam (neuro): Pronator motor function not present and no tremor noted Psych Appearance: grossly normal Mental Status: mental status grossly normal Speech and movement: Normal speech and movement present Affect: normal affect Attitude: cooperative Assessment & Plan Assessment & Plan (1) REGIS on CPAP: Code(s): G47.33 - Obstructive sleep apnea (adult) (pediatric); Z99.89 - Dependence on other enabling machines and devices (2) Morbid obesity: Code(s): E66.01 - Morbid (severe) obesity due to excess calories Plan Change CPAP pressure to 7-11 cmH2O. Stressed compliance, use CPAP nightly and more than 4 hours. Refer patient to wt management program for gastric balloon consultation. Orders: Referrals Medical Weight Management Referral E66.01 - Morbid (severe) obesity due to excess calories, G47.33 - Obstructive sleep apnea (adult) (pediatric), Z99.89 - Dependence on other enabling machines and devices Coding Level of Care Code Est Pt Level 4 (66261) Diagnoses REGIS on CPAP G47.33; Z99.89 Morbid obesity E66.01
== END 2023-03-30 09:37 | disposition home or self-care (01) ==
LOC: HO.HSMC 09:17
PROVIDERS: PCP Internal Medicine; Visit Provider Nurse Practitioner Family
DX: G47.33 Obstructive sleep apnea (adult) (pediatric) (principal); Z99.89 Dependence on other enabling machines and devices; E66.01 Morbid (severe) obesity due to excess calories
CPT/HCPCS: 99214

== ENCOUNTER → 2023-03-30 09:17 | Outpatient (BNVA) | payer OTHER, SELFPAY | PROVIDERS: PCP Internal Medicine; Visit Provider Nurse Practitioner Family | DX: G47.33 Obstructive sleep apnea (adult) (pediatric) (principal); E66.01 Morbid (severe) obesity due to excess calories; Z68.42 Body mass index [BMI] 45.0-49.9, adult; Z99.89 Dependence on other enabling machines and devices | CPT/HCPCS: 99212 ==

== ENCOUNTER 2023-05-20 08:25 | Outpatient (AMB) | payer OTHER, SELFPAY ==
--- NOTE | 2023-05-20 08:33 | A.OFFPC_ITS ---
Vital Signs 05/20/23 08:34 Height 5 ft 3 in Weight 254 lb 6 oz BMI 45.1 BP 140/80 H Blood Pressure Location Rt brachial Position Sitting Pulse 60 Pulse Source Pulse Oximeter Pulse Oximetry (%) 98 Intake Visit Reasons: Annual PE Intake Note: pt is here for annual exam Hog Raiser Required: No Accompanied by: Self / Same As Patient Allergies lisinopril [LISINOPRIL] Allergy (Unknown, Verified 05/20/23 09:02) COUGH metoprolol [METOPROLOL] Allergy (Unknown, Verified 05/20/23 09:02) ANKLE SWELLING, swelling Medication List - Last Reconciled 05/20/23 by Carline Kruse MD carvedilol 25 mg PO BID cholecalciferol (vitamin D3) 50 mcg PO DAILY losartan-hydrochlorothiazide 100-12.5 mg 1 tab PO DAILY magnesium 200 mg PO DAILY multivitamin 1 tab PO DAILY phytonadione (vitamin K1) 100 mcg PO DAILY Tobacco use date assessed: 05/20/23 Dental Screening Dental Screen Date: 05/20/23 Did you have a dental visit in the last 12 months?: No Did you have a dental problem in the last 6 months where you did not have access to dental care?: No Was dental information given to patient?: Yes HPI Annual PE HPI Details 57-year-old lady here today for physical exam and to have 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 She has hypertension, better controlled with current medication. She is up-to-date with her screening mammogram done earlier this year, and had a bone density scan done 2020 which showed osteopenia beginning in left femoral neck . She is compliant with her CPAP has obstructive sleep apnea. She has history of infiltrating ductal carcinoma of right breast currently on letrozole followed by Dr. Brown. She has been checking her blood pressure at home and it has usually been running around 130/80. Denies having any headaches, no chest pain, no shortness of breath, no lightheadedness. Complains of mildly itchy bump on left lower eyelid, which has been present for the last 2 days. She thinks that she might have had some sand flow [place] her eye at the beach [place]. Has been trying to lose weight through diet and exercise, not been very successful. Would like to be referred to the weight management clinic and [facility] to discuss other treatment options were weight loss. PFSH Medical History REGIS on CPAP Breast cancer Morbid obesity Vitamin D deficiency Menopause Tubular adenoma of colon Infiltrating ductal carcinoma of right breast Hypertriglyceridemia Essential hypertension Surgical History Hx of cataract extraction History of colonoscopy History of lumpectomy of right breast Family History Father Unknown family medical history Cancer Pneumonia due to COVID-19 virus Mother Depression Mental health disorder Lung cancer Smoker Brother No problems noted. Brother No problems noted. Son No problems noted. Son No problems noted. Daughter No problems noted. Daughter No problems noted. Paternal Grandmother Cancer Social History Household Members: Spouse Housing: House Are you a primary home care scheduler to a significant other at home: No Do you presently have visiting nurse or other home services: No Alcohol intake: current Alcohol intake frequency: holidays/special occasions only Patient Tobacco Use Status: Never used Tobacco e-Cigarette/Vaping Use: Never Used Second Hand Smoke Exposure: No service: No Current occupational status: employed Cognitive needs: No Hearing needs: No Vision needs: No Questionnaire PHQ-9 Over the last 2 weeks, how often have you been bothered by any of the following problems? 1. Little interest or pleasure in doing things: not at all 2. Feeling down, depressed, or hopeless: not at all 3. Trouble falling or staying asleep, or sleeping too much: not at all 4. Feeling tired or having little energy: several days 5. Poor appetite or overeating: several days 6. Feeling bad about yourself - or that you are a failure or have let yourself or your family down: not at all 7. Trouble concentrating on things, such as reading the newspaper or watching television: not at all 8. Moving or speaking so slowly that other people could have noticed. Or the opposite - being so fidgety or restless that you have been moving around a lot more than usual: not at all 9. Thoughts that you would be better off or of hurting yourself in some way: not at all Total score: 2 Depression Screening Interpretation: Negative 89494 - PHQ-9 Billing: Yes Source: Developed by Drs. Delano Cornoel, Ernesto Farah and colleagues, with an educational isac from [employer]. Thrive Questionnaire Date Thrive assessed: 05/20/23 I am a: Patient What is your living situation today?: I have a steady place to live Within the past 12 months, did the food you bought not last and you didn't have the money to get more?: Never true Within the past 12 months, did you worry whether your food would run out before you got money to buy more?: Never true Do you have trouble paying for medicines?: No Do you have trouble getting transportation to medical appointments?: No Do you have trouble paying your heating and electricity bill?: No Do you have trouble taking care of your child, family member or friend?: No Do you have trouble with day-to-day activities such as bathing, preparing meals, shopping, managing finances, etc.?: No Are you currently unemployed and looking for a job?: No Are you interested in more education?: No Please select the resources that you would like help with: None Currently or been in a relationship where the following occur: no concerns reported AUDIT C Alcohol Use Questionnaire (AUDIT-C) 1. How often do you have a drink containing alcohol?: Never Total Score: 0 ALFREDO-7 AMB Questionnaire ALFREDO-7 Date ALFREDO - 7 assessed: 05/20/23 Feeling nervous, anxious, or on edge: 0 = Not at all Not being able to stop or control worryin = Not at all Worrying too much about different things: 0 = Not at all Trouble relaxin = Not at all Being so restless that it is hard to sit still: 0 = Not at all Becoming easily annoyed or irritable: 0 = Not at all Feeling afraid as if something awful might happen: 0 = Not at all Total ALFREDO-7 score (0-4 normal; 5-9 mild; 10-14 moderate; 15-21 severe): 0 Source: Developed by Arely Howard Kurt Kroenke and colleagues, with an educational isac from [employer]. LAFREDO-7 Assessment Billing ALFREDO-7 Assessment Tool: ALFREDO-7 Assessment 85752 Review of Systems Const Denies body aches, Denies fatigue, Denies fever(s), Denies lethargy, Denies malaise and Denies weakness Eyes Details: Up-to-date with her eye exam, sees Dr. Baron Denies eye discharge and Denies itchy eyes ENT Reports Normal hearing present, Denies dizziness, Denies nasal congestion, Denies nasal discharge and Denies sore throat Card Denies rapid heart rate, Denies irregular heart rhythm, Denies palpitations and Denies dyspnea Resp Denies chest congestion, Denies cough, Denies dyspnea and Denies wheezing GI Denies abdominal pain, Denies change in bowel habits and Denies heartburn Denies urinary frequency, Denies dysuria and Denies urinary urgency Musc Reports no additional complaints Skin/Breast Denies breast swelling, Denies breast pain, Denies lesions and Denies rash Neuro Reports Normal hearing present, Denies dizziness, Denies Sensory deficit (Neuro) and Denies weakness Psych Reports no additional complaints Endo Denies fatigue, Denies polydipsia, Denies polyuria and Denies palpitations Tobias/Lymph Denies easy bruising Aller/Immun Denies itchy eyes, Denies seasonal rhinorrhea and Denies wheezing Physical exam (Primary Care) Vital Signs: Last Vital Signs Pulse 60 05/20/23 08:34 BP 140/80 H 05/20/23 08:34 Pulse Ox 98 05/20/23 08:34 BMI result Body Mass Index 45.1 BMI Assessment/Plan discussion: High BMI High, discussed plan: lifestyle, weight reduction, dietary and physical activity Tobacco/Smoking Status: Tobacco use Status Tobacco use date assessed 05/20/23 05/20/23 08:37 Patient Tobacco Use Status Never used Tobacco 05/20/23 08:33 e-Cigarette/Vaping Use Never Used 05/20/23 08:33 PHQ-9: PHQ-9 Score PHQ-9: Total score 2 05/20/23 23:09 Depression Screening Interpretation: Negative Thrive Assessment: Date of Thrive Assessment Date Thrive assessed 05/20/23 05/20/23 09:33 Currently or been in a relationship where the following occur: no concerns reported Const General: cooperative and no acute distress Nutritional Appearance: obese morbidly obese Orientation/consciousness: patient oriented x3 Limitations: no limitations HENMT Head: Yes normal to inspection and Yes normocephalic Ears: hearing grossly normal bilaterally, external ears normal, TM's normal bilaterally and EAC's normal General nose exam: Normal external nose present and No nasal discharge present Face and sinus: Yes face symmetric Mouth: Normal oral and palatal mucosa present, lip normal, oropharynx normal and moist mucous membranes Eyes Eyelids: Yes eyelid abnormality (External hordeolum on left lower eyelid) Conjunctivae: conjunctivae normal Sclerae: sclerae normal Pupils: Equal, round and reactive pupils present EOM: EOMs intact bilaterally Neck Neck: Yes full ROM and Yes no lymphadenopathy Thyroid: Thyroid normal Carotids: normal carotid upstroke Lymphatic: no lymphadenopathy noted Chest Chest palpation & inspection: normal inspection of the chest Breast/axilla palpation: normal palpation of the breasts Resp Effort & Inspection: normal respiratory effort and able to speak in complete sentences Auscultation: clear to auscultation bilaterally Cardio Jugular venous distension: no JVD Rate: regular rate Rhythm: regular rhythm Heart sounds: S1 normal heart sound present and S2 normal heart sound present GI Inspection: Yes normal to inspection Palpation (GI): Soft to palpation Auscultation: normal bowel sounds General: Yes no CVA tenderness Back/Spine/Pelvis Back: no CVA tenderness Skin General skin exam: no rashes or lesions noted Rashes: no rashes Neuro General: patient oriented x3, gait normal, moves all extremities, no focal motor deficits and CN's II-XI intact bilaterally Cranial nerves: Yes Equal, round and reactive pupils present and Yes Normal hearing present Cognition (Neuro): normal cognition Gait exam (Neuro): Normal gait present Motor exam (neuro): 5/5 motor strength present throughout Sensory Exam: No Sensory deficit (Neuro) Extrem General: Yes normal to inspection, Yes full ROM, Yes no pedal edema and Yes normal gait Psych Appearance: grossly normal and well kempt Mental Status: mental status grossly normal Speech and movement: Normal speech and movement present Affect: normal affect Attitude: cooperative Thought process: Normal thought process present Thought content: Normal thought content present Results Reviewed Results Reviewed: ENTERED: 02/22/[address]: Carline Kruse MD ORDERED: CBC Auto Diff Test Result Flag Reference Site WBC 7.0 4.8-10.8 X10*3/uL RBC 4.84 4.20-5.50 X10*6/uL HGB 14.0 12.0-16.0 g/dl HCT 41.4 37.0-47.0 % MCV 85.5 80.0-98.0 fL MCH 28.9 27.0-33.0 pg MCHC 33.8 31.0-35.0 g/dl RDW 13.1 11.0-16.0 % PLT 296 160-400 X10*3/uL MPV 9.0 L 9.4-12.3 fL Neut Pct Auto 58.0 45-73 % ImGran Pct Auto 0.3 0.0-0.4 % Lymp Pct Auto 29.6 20-40 % [place] Pct Auto 9.5 2-11 % Eos Pct Auto 1.7 0-4 % Baso Pct Auto 0.9 0-2 % NRBC Pct Auto 0.0 0.0-0.2 /100WBC ANC Neut Abs # 4.1 2.0-8.3 x10*3/uL ImGran Abs Auto 0.02 0.00-0.03 X10*3/uL Lymph Abs Auto 2.1 1.2-4.9 X10*3/uL [place] Abs Auto 0.7 0.1-1.2 X10*3/uL Eos Abs Auto 0.1 0.0-0.4 X10*3/uL Baso Abs Auto 0.1 0.0-0.2 X10*3/uL NRBC Abs Auto 0.000 0.0-0.012 X10*3/uL NTERED: 02/22/[address] [facility] [address]: Carline Kruse MD ORDERED: CMP Test Result Flag Reference Site Sodium 142 135-145 mmol/L Potassium 4.3 3.3-5.1 mmol/L CL 108 96-108 mmol/L CO2 26 22-29 mmol/L Gap 12 12-20 BUN 18 H 9-16 mg/dL Creat 0.72 0.5-1.4 mg/dL Estimated CrCl 103.0 Provided height and weight: 160.02 cm, 115.4 kg. eGFR (calculated from the MDRD study equation) and eCrCl (calculated from the Cockcroft-Gault equation) are based on different parameters and may not yield comparable results. If eCrCl result is absurd, please check patient's height/weight. EGFR > 60 NOTE: For -Hungarian individuals, multiply the result by 1.210. Chronic Kidney Disease: Estimated GFR < 60 mL/min/1.73m2 Severe Kidney Disease: Estimated GFR < 15 mL/min/1.73m2 Glucose, Random 90 60-115 mg/dL CA 9.9 8.4-10.2 mg/dL Total Bili 0.5 0.0-1.0 mg/dL AST (GOT) 14 5-31 U/L ALT (GPT) 13 0-31 U/L Protein, Total 7.0 6.5-8.0 g/dL Alb 4.0 3.5-5.0 g/dL Alk Phos 94 39-117 U/L Assessment and Plan Assessment & Plan (1) Annual visit for general adult medical examination with abnormal findings: Code(s): Z00.01 - Encounter for general adult medical examination with abnormal findings Plan: Will check appropriate labs. Recommended dental visit every 6 months and get regular eye exams, at least every 2 years. Take adequate calcium in diet and vitamin-D 3 at 2000 IU per cap once a day, in addition to weight-bearing exercises to help maintain good muscle tone and weight control. Instructed to do self-breast exam, and recommended to continue with yearly mammogram.. Reminded to get her COVID booster and yearly flu shot, (2) Morbid obesity: Code(s): E66.01 - Morbid (severe) obesity due to excess calories Plan: Referred to [facility] weight management for further evaluation and to discuss treatment options regarding weight loss (3) Vitamin D deficiency: Code(s): E55.9 - Vitamin D deficiency, unspecified Plan: Will check vitamin-D level, in the meantime start taking vitamin-D 3 supplements at 2000 units daily (4) Hypertriglyceridemia: Code(s): E78.1 - Pure hyperglyceridemia Plan: Recent labs showed markedly (5) External hordeolum: Code(s): H00.019 - Hordeolum externum unspecified eye, unspecified eyelid Plan: Apply warm moist compress to affected area, prescription sent for erythromycin eye ointment, to use as directed (6) Essential hypertension: Code(s): I10 - Essential (primary) hypertension Plan: Blood pressure at goal of less than 130/80. Continue with current medication. Reinforced importance of following a low sodium diet, getting regular exercise, and lowering stress levels.q (7) Infiltrating ductal carcinoma of right breast: Comment: Followed by [facility] oncology and currently on letrozole Code(s): C50.911 - Malignant neoplasm of unspecified site of right female breast Plan: On letrozole, followed by Dr. Shepherd (8) REGIS on CPAP: Code(s): G47.33 - Obstructive sleep apnea (adult) (pediatric); Z99.89 - Dependence on other enabling machines and devices Plan: Followed by Dr. Glaser Orders: Orders Lipid Panel 05/20/23 E55.9 - Vitamin D deficiency, unspecified, E78.1 - Pure hyperglyceridemia Vitamin D 25-OH Total 05/20/23 E55.9 - Vitamin D deficiency, unspecified, E78.1 - Pure hyperglyceridemia Referrals Medical Weight Management Referral E66.01 - Morbid (severe) obesity due to ex cess calories Medications: New erythromycin 1 appl ophthalmic-Left DAILY 7 days 3.5 grams 0RF H00.019 - Hordeolum externum unspecified eye, unspecified eyelid Coding Level of Care Code Est Pt Prev Care 40-64y(84628) Diagnoses Annual visit for general adult medical examination with abnormal findings Z00.01 Morbid obesity E66.01 Vitamin D deficiency E55.9 Hypertriglyceridemia E78.1 External hordeolum H00.019 Essential hypertension I10 Infiltrating ductal carcinoma of right breast C50.911 REGIS on CPAP G47.33; Z99.89 Additional Codes ALFREDO-7 Assessment Billing - ALFREDO-7 Assessment Tool: ALFREDO-7 Assessment [id number] ([id number])
[2023-05-20 08:34] VITALS: BP 140/80; PULSE 60; O2SAT 98; BMI 45.1
== END 2023-05-20 14:07 | disposition home or self-care (01) ==
PROVIDERS: PCP Internal Medicine; Visit Provider Internal Medicine
DX: Z00.01 Encounter for general adult medical examination with abnormal findings (principal); E66.01 Morbid (severe) obesity due to excess calories; Z68.42 Body mass index [BMI] 45.0-49.9, adult; E55.9 Vitamin D deficiency, unspecified; I10 Essential (primary) hypertension; C50.911 Malignant neoplasm of unspecified site of right female breast; E78.1 Pure hyperglyceridemia; H00.015 Hordeolum externum left lower eyelid; G47.33 Obstructive sleep apnea (adult) (pediatric); Z99.89 Dependence on other enabling machines and devices
CPT/HCPCS: 99396

== ENCOUNTER 2023-05-20 09:27 | Outpatient (REF) | payer OTHER, SELFPAY ==
[2023-05-20 13:00] LABS: Cholesterol 207 mg/dL (<200); HDL Cholesterol 50 mg/dL (>40); LDL Cholesterol Calculated 126 mg/dL (<100); Triglycerides 159 mg/dL (<150)
[2023-05-20 13:16] LABS: Vitamin D 25-OH Total 60.9 ng/mL (>30)
== END 2023-05-20 09:28 | disposition home or self-care (01) ==
LOC: HO.HMGCLDS 09:27
PROVIDERS: PCP Internal Medicine; Visit Provider Internal Medicine
DX: E55.9 Vitamin D deficiency, unspecified (principal); E78.1 Pure hyperglyceridemia
CPT/HCPCS: 36415; 80061; 82306

== ENCOUNTER 2023-08-24 15:11 | Outpatient (AMB) | payer OTHER, SELFPAY ==
--- NOTE | 2023-08-24 15:45 | AM.OFFWIN_ITS ---
Intake Vital Signs 08/24/23 15:46 Height 5 ft 3 in Weight 256 lb BMI 45.3 BP 146/92 H Blood Pressure Location Lt brachial Position Sitting Pulse 86 Pulse Source Pulse Oximeter Temp 98.1 F Temp Source Oral Pulse Oximetry (%) 95 Oxygen Delivery Method Room Air Intake Visit Reasons: EP, cough ([phone]) Intake Note: Pt is here today c/o cough x2mo. Patient Tobacco Use Status: Never used Tobacco Allergies lisinopril [LISINOPRIL] Allergy (Unknown, Verified 08/24/23 16:09) COUGH metoprolol [METOPROLOL] Allergy (Unknown, Verified 08/24/23 16:09) ANKLE SWELLING, swelling Medication List - Last Reconciled 08/24/23 by Srinath Lindsey MD carvedilol 25 mg PO BID cholecalciferol (vitamin D3) 50 mcg PO DAILY losartan-hydrochlorothiazide 100-12.5 mg 1 tab PO DAILY magnesium 200 mg PO DAILY phytonadione (vitamin K1) 100 mcg PO DAILY HPI EP, cough ([phone]) HPI Details 58-year-old female presents to the [facility] for a sick visit. Patient is complaining of a persisting cough since June. Cough symptoms are worse at night and paroxysmal in nature. On more than 1 occasion she has vomited after a bout of coughing. Minimal shortness of breath. Patient has history of breast cancer. [facility] Medical History (Updated 05/20/23 @ 23:55 by Carline Kruse MD) REGIS on CPAP Breast cancer Morbid obesity Vitamin D deficiency Menopause Tubular adenoma of colon Infiltrating ductal carcinoma of right breast Hypertriglyceridemia Essential hypertension Surgical History Hx of cataract extraction History of colonoscopy History of lumpectomy of right breast Family History Father Unknown family medical history Cancer Pneumonia due to COVID-19 virus Mother Depression Mental health disorder Lung cancer Smoker Brother No problems noted. Brother No problems noted. Son No problems noted. Son No problems noted. Daughter No problems noted. Daughter No problems noted. Paternal Grandmother Cancer Social History Household Members: Spouse Housing: House Are you a primary manager care to a significant other at home: No Do you presently have visiting nurse or other home services: No Alcohol intake: current Alcohol intake frequency: holidays/special occasions only Patient Tobacco Use Status: Never used Tobacco e-Cigarette/Vaping Use: Never Used Second Hand Smoke Exposure: No service: No Current occupational status: employed Cognitive needs: No Hearing needs: No Vision needs: No Physical Exam Vital Signs: Last Vital Signs Temp 98.1 F 08/24/23 15:46 Pulse 86 08/24/23 15:46 BP 146/92 H 08/24/23 15:46 Pulse Ox 95 08/24/23 15:46 Oxygen Delivery Method Room Air 08/24/23 15:46 BMI result Body Mass Index 45.3 Const General: cooperative and healthy appearing Nutritional Appearance: well nourished Orientation/consciousness: patient oriented x3 Limitations: no limitations HEENT Head: Yes normal to inspection Eyes General: appearance normal, both eyes and all related structures Neck Neck: Yes normal visual inspection Chest Chest palpation & inspection: normal palpation of entire chest wall Resp Effort & Inspection: normal respiratory effort Neuro General: patient oriented x3 Assessment & Plan Assessment & Plan (1) Cough: Code(s): R05.9 - Cough, unspecified Plan: X-ray images were personally reviewed by me.. Significant cardiomegaly present. Patient gives history of chemotherapy for breast cancer last year. A note to the oncologist and PCP has been sent suggesting further workup. Furosemide has been started today. Orders: Orders Erythrocyte Sedimentation Rate Today R05.9 - Cough, unspecified Complete Blood Count no Diff Today R05.9 - Cough, unspecified XR chest 2V Today R05.9 - Cough, unspecified Basic Metabolic Panel Today R05.9 - Cough, unspecified B Type Natriuretic Peptide Today R05.9 - Cough, unspecified Medications: New furosemide 20 mg PO DAILY 14 tabs 0RF Coding Level of Care Code Est Pt Level 4 (45366) Diagnoses Cough R05.9
--- NOTE | 2023-08-24 15:45 | MHC.OFFWIV ---
Intake Vital Signs 08/24/23 15:46 Height 5 ft 3 in Weight 256 lb BMI 45.3 BP 146/92 H Blood Pressure Location Lt brachial Position Sitting Pulse 86 Pulse Source Pulse Oximeter Temp 98.1 F Temp Source Oral Pulse Oximetry (%) 95 Oxygen Delivery Method Room Air Intake Visit Reasons: EP, cough ([phone]) Intake Note: Pt is here today for a walk in visit. Pt c/o cough since June.Pt states that the cough is worst at night. Pt states that she had a breast cancer 9 years ago. Patient Tobacco Use Status: Never used Tobacco Allergies lisinopril [LISINOPRIL] Allergy (Unknown, Verified 08/24/23 15:48) COUGH metoprolol [METOPROLOL] Allergy (Unknown, Verified 08/24/23 15:48) ANKLE SWELLING, swelling PFSH Medical History (Updated 05/20/23 @ 23:55 by Carline Kruse MD) REGIS on CPAP Breast cancer Morbid obesity Vitamin D deficiency Menopause Tubular adenoma of colon Infiltrating ductal carcinoma of right breast Hypertriglyceridemia Essential hypertension Surgical History Hx of cataract extraction History of colonoscopy History of lumpectomy of right breast Family History Father Unknown family medical history Cancer Pneumonia due to COVID-19 virus Mother Depression Mental health disorder Lung cancer Smoker Brother No problems noted. Brother No problems noted. Son No problems noted. Son No problems noted. Daughter No problems noted. Daughter No problems noted. Paternal Grandmother Cancer Social History Household Members: Spouse Housing: House Are you a primary overnight caregiver to a significant other at home: No Do you presently have visiting nurse or other home services: No Alcohol intake: current Alcohol intake frequency: holidays/special occasions only Patient Tobacco Use Status: Never used Tobacco e-Cigarette/Vaping Use: Never Used Second Hand Smoke Exposure: No service: No Current occupational status: employed Cognitive needs: No Hearing needs: No Vision needs: No Physical Exam Vital Signs: Last Vital Signs Temp 98.1 F 08/24/23 15:46 Pulse 86 08/24/23 15:46 BP 146/92 H 08/24/23 15:46 Pulse Ox 95 08/24/23 15:46 Oxygen Delivery Method Room Air 08/24/23 15:46 BMI result Body Mass Index 45.3 Coding
[2023-08-24 15:46] VITALS: BP 146/92; PULSE 86; TEMP 36.7; O2SAT 95; BMI 45.3
== END 2023-08-24 16:27 | disposition home or self-care (01) ==
PROVIDERS: PCP Internal Medicine; Visit Provider Internal Medicine
DX: R05.9 Cough, unspecified (principal)
CPT/HCPCS: 99214

== ENCOUNTER 2023-08-24 16:07 | Outpatient (REF) | payer OTHER, SELFPAY ==
--- NOTE | ~2023-08-24 | XR_ITS ---
EXAMINATION: XR CHEST CLINICAL INFORMATION: Cough COMPARISON: None available. TECHNIQUE: 2 views of the chest were obtained. FINDINGS: Slight bronchial thickening which can be seen in setting of infectious/inflammatory etiology. Bibasilar atelectasis. No pneumothorax. Trachea is midline. Cardiac mediastinal silhouette is not enlarged. Aorta demonstrates mild tortuosity. No large pleural effusion. Degenerative changes of the thoracolumbar spine. Soft tissues are unremarkable. XR/XR chest 2V IMPRESSION: 1. Slight bronchial thickening which can be seen in setting of infectious/inflammatory etiology. 2. Bibasilar atelectasis.
== END 2023-08-24 16:08 | disposition home or self-care (01) ==
LOC: HO.HMGCX 16:07
PROVIDERS: PCP Internal Medicine; Visit Provider Internal Medicine
DX: R05.9 Cough, unspecified (principal)
CPT/HCPCS: 71046

== ENCOUNTER 2023-08-25 08:58 | Outpatient (AMB) | payer OTHER, SELFPAY ==
[2023-08-25 09:23] VITALS: BP 162/100; PULSE 62; O2SAT 94; BMI 45.0
--- NOTE | 2023-08-25 09:23 | MHC.PC.OV ---
Vital Signs 08/25/23 09:23 Height 5 ft 3 in Weight 254 lb 4 oz BMI 45.0 BP 162/100 H Blood Pressure Location Lt brachial Position Sitting Pulse 62 Pulse Source Pulse Oximeter Pulse Oximetry (%) 94 Oxygen Delivery Method Room Air Intake Visit Reasons: f/u CXR results Intake Note: Pt is here to go over her X-ray results from the walk-in Allergies lisinopril [LISINOPRIL] Allergy (Unknown, Verified 09/22/23 22:56) COUGH metoprolol [METOPROLOL] Allergy (Unknown, Verified 09/22/23 22:56) ANKLE SWELLING, swelling Medication List - Last Reconciled 09/22/23 by Carline Kruse MD amlodipine 5 mg PO DAILY carvedilol 25 mg PO BID cholecalciferol (vitamin D3) 50 mcg PO DAILY furosemide 20 mg PO DAILY losartan-hydrochlorothiazide 100-12.5 mg 1 tab PO DAILY magnesium 200 mg PO DAILY phytonadione (vitamin K1) 100 mcg PO DAILY Tobacco use date assessed: 08/25/23 Dental Screening Dental Screen Date: 08/25/23 Did you have a dental visit in the last 12 months?: No Did you have a dental problem in the last 6 months where you did not have access to dental care?: No Was dental information given to patient?: No HPI f/u CXR results HPI Details 58-year-old lady with history of breast cancer status post chemotherapy, with morbid obesity, hypertriglyceridemia and hypertension, here today, as advised by walk-in provider for evaluation of cardiomegaly noted by him on chest x-ray done yesterday. She has been having intermittent episodes of coughing spells, but no significant shortness of breath, no swelling in lower extremities, no chest pain or lightheadedness reported. Blood pressure today is markedly elevated at 162/100, was started on furosemide yesterday , in addition to carvedilol 25 mg twice a day and losartan-HCTZ 100-12.5 mg 1 tablet daily. [facility] Medical History Atrial aneurysm Hypertensive cardiomegaly Uncontrolled hypertension REGIS on CPAP Breast cancer Morbid obesity Vitamin D deficiency Menopause Tubular adenoma of colon Infiltrating ductal carcinoma of right breast Hypertriglyceridemia Essential hypertension Surgical History Hx of cataract extraction History of colonoscopy History of lumpectomy of right breast Family History Father Unknown family medical history Cancer Pneumonia due to COVID-19 virus Mother Depression Mental health disorder Lung cancer Smoker Brother No problems noted. Brother No problems noted. Son No problems noted. Son No problems noted. Daughter No problems noted. Daughter No problems noted. 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 Delano Coronel, Arely Tilley, Ernesto Arrieta and colleagues, with an educational isac from [employer]. Review of Systems Const All systems reviewed & are unremarkable except as noted in HPI and below ENT Reports no additional complaints and Reports Normal hearing present Card Reports as per HPI Resp Reports as per HPI GI Reports as per HPI and Reports no additional complaints Reports as per HPI Musc Reports no additional complaints Neuro Reports no additional complaints, Reports Normal hearing present and Denies Sensory deficit (Neuro) Physical exam (Primary Care) Vital Signs: Last Vital Signs Pulse 62 08/25/23 09:23 BP 162/100 H 08/25/23 09:23 Pulse Ox 94 08/25/23 09:23 Oxygen Delivery Method Room Air 08/25/23 09:23 BMI result Body Mass Index 45.0 BMI Assessment/Plan discussion: High BMI High, discussed plan: lifestyle, weight reduction, dietary and physical activity Tobacco/Smoking Status: Tobacco use Status Tobacco use date assessed 08/25/23 08/25/23 09:30 Patient Tobacco Use Status Never used Tobacco 12/20/23 09:23 e-Cigarette/Vaping Use Never Used 08/25/23 09:23 Thrive Assessment: Date of Thrive Assessment Date Thrive assessed 05/20/23 08/25/23 09:23 Const General: cooperative and no acute distress Nutritional Appearance: obese morbidly obese Orientation/consciousness: patient oriented x3 HENMT Head: Yes normocephalic Ears: external ears normal, TM's normal bilaterally and EAC's normal General nose exam: Normal external nose present and No nasal discharge present Face and sinus: Yes face symmetric Mouth: Normal oral and palatal mucosa present, oropharynx normal and moist mucous membranes Neck Neck: Yes full ROM and Yes no lymphadenopathy Thyroid: Thyroid normal Carotids: normal carotid upstroke Resp Effort & Inspection: normal respiratory effort and able to speak in complete sentences Auscultation: clear to auscultation bilaterally Cardio Jugular venous distension: no JVD Rate: regular rate Rhythm: regular rhythm Heart sounds: S1 normal heart sound present and S2 normal heart sound present GI Inspection: Yes normal to inspection Palpation (GI): Soft to palpation Auscultation: normal bowel sounds General: Yes no CVA tenderness Back/Spine/Pelvis Back: no CVA tenderness Skin General skin exam: no rashes or lesions noted Rashes: no rashes Neuro General: patient oriented x3, gait normal, moves all extremities, no focal motor deficits and CN's II-XI intact bilaterally Cranial nerves: Yes Normal hearing present Cognition (Neuro): normal cognition Gait exam (Neuro): Normal gait present Motor exam (neuro): 5/5 motor strength present throughout Sensory Exam: No Sensory deficit (Neuro) Extrem General: Yes normal to inspection, Yes full ROM, Yes no pedal edema and Yes normal gait Assessment and Plan Assessment & Plan (1) Uncontrolled hypertension: Code(s): I10 - Essential (primary) hypertension Plan: Blood pressure no at goal of less than 130/80. Continue with current medication, added amlodipine 5 mg once a day at night. Reinforced importance of following a low sodium diet, getting regular exercise, and lowering stress levels. Ordered transthoracic echocardiogram Orders: Orders CA echo transthoracic complete 08/25/23 I10 - Essential (primary) hypertension, I11.9 - Hypertensive heart disease without heart failure Medications: New amlodipine take with supper 5 mg PO DAILY 30 tabs 1RF Coding Level of Care Code Est Pt Level 3 (11757) Diagnoses Uncontrolled hypertension I10
== END 2023-08-25 15:58 | disposition home or self-care (01) ==
PROVIDERS: PCP Internal Medicine; Visit Provider Internal Medicine
DX: I10 Essential (primary) hypertension (principal)
CPT/HCPCS: 99213

== ENCOUNTER 2023-08-25 10:10 | Outpatient (REF) | payer OTHER, SELFPAY ==
[2023-08-25 13:31] LABS: Hematocrit 44.8 % (37.0-47.0); Hemoglobin 14.7 g/dl (12.0-16.0); Mean Corpuscular HGB Conc 32.8 g/dl (31.0-35.0); Mean Corpuscular Hemoglobin 28.3 pg (27.0-33.0); Mean Corpuscular Volume 86.2 fL (80.0-98.0); PLT CLUMP 1; Red Cell Distribution Width 13.2 % (11.0-16.0)
[2023-08-25 13:33] LABS: B Type Natriuretic Peptide 28 pg/mL (<100)
[2023-08-25 13:41] LABS: White Blood Count 8.1 X10*3/uL (4.8-10.8)
[2023-08-25 13:53] LABS: Anion Gap 13 (12-20); Blood Urea Nitrogen 14 mg/dL (9-16); Calcium 9.3 mg/dL (8.4-10.2); Carbon Dioxide 27 mmol/L (22-29); Chloride 105 mmol/L (96-108); Estimated Glomerular Filt Rate > 60; Glucose Random 84 mg/dL (60-115); Potassium 3.9 mmol/L (3.3-5.1); Sodium 141 mmol/L (135-145)
[2023-08-25 14:01] LABS: Erythrocyte Sedimentation Rate 16 MM/HR (0-20)
== END 2023-08-25 10:11 | disposition home or self-care (01) ==
LOC: HO.HMGCLDS 10:10
PROVIDERS: PCP Internal Medicine; Visit Provider Internal Medicine
DX: R05.9 Cough, unspecified (principal)
CPT/HCPCS: 36415; 80048; 83880; 85027; 85652

== ENCOUNTER 2023-09-14 11:48 | Outpatient (AMB) | payer OTHER, SELFPAY ==
--- NOTE | 2023-09-14 11:59 | MHC.OFFVIS ---
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 Complaining of vaginal bleeding after discontinuing letrozole in May of 2023 Last Pap/HPV was in 04/27 was negative Last Mammogram was BI-RADS 2 in 02/26 Last Colonoscopy was in 02/23, the recommendation was to repeat in 5 years [facility] Medical History Hypertensive cardiomegaly Uncontrolled hypertension REGIS on CPAP Breast cancer Morbid obesity Vitamin D deficiency Menopause Tubular adenoma of colon Infiltrating ductal carcinoma of right breast Hypertriglyceridemia Essential hypertension Surgical History Hx of cataract extraction History of colonoscopy History of lumpectomy of right breast Family History Father Unknown family medical history Cancer Pneumonia due to COVID-19 virus Mother Depression Mental health disorder Lung cancer Smoker Brother No problems noted. Brother No problems noted. Son No problems noted. Son No problems noted. Daughter No problems noted. Daughter No problems noted. 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 Cognitive needs: No Hearing needs: No Vision needs: No Female Reproductive History Menstrual Date of last pap smear: 05/05/22 Date of Mammogram: 03/03/23 Review of Systems Const All systems reviewed & are unremarkable except as noted in HPI and below Card Reports as per HPI Resp Reports as per HPI GI Reports as per HPI and Reports no additional complaints Reports as per HPI Physical Exam Vital Signs: Last Vital Signs BP 110/70 09/14/23 12:00 BMI result Body Mass Index 43.6 Const General: cooperative, healthy appearing and comfortable Chest Chest palpation & inspection: normal inspection of the chest and normal palpation of entire chest wall Breast/axilla inspection: normal inspection of the breasts and normal inspection of the axillae Breast/axilla palpation: normal palpation of the breasts, normal palpation of the axillae and no axillary lymphadenopathy Resp Effort & Inspection: normal respiratory effort Auscultation: clear to auscultation bilaterally Percussion: percussion normal Cardio Palpation: normal PMI Rate: regular rate Rhythm: regular rhythm Heart sounds: no murmurs and no rubs Peripheral pulses: Peripheral pulses 2+ throughout GI Inspection: Yes normal to inspection Palpation (GI): Soft to palpation, nontender, no guarding, not rigid and No hepatosplenomegaly present Percussion: Yes normal to percussion Auscultation: normal bowel sounds Rectal Exam - Female: deferred General: Yes bladder normal to palpation External Female Exam: No lesion Speculum Exam - Vagina: normal appearance of the vagina, normal palpation, normal vaginal discharge and not erythematous Speculum Exam - Cervix: normal appearance of the cervix, normal palpation and Other cervical findings present (Right sided cervical polyp) Bimanual exam- vagina & uterus: normal bimanual exam, normal palpation, uterine size normal, bladder normal to palpation, consistency normal and normal palpation Bimanual Exam- Adnexa, other: normal adnexae, no masses and no tenderness Office Procedures SYSTEMS SOFTWARE SPECIALIST Biopsy Before the procedure was started, discussed with the patient the procedure technique, alternatives & all the risks associated with the procedure including but not limited to: bleeding , infection, uterine perforation, injury to bladder, vessels, bowels, possible need for transfusion with all its risks, and others. All questions were answered, the patient verbalized understanding and signed the consent. Urine test done in the office was negative Using a long Nara Clamp the endocervical polyp was grasped and twisted around till it came off, hemostasis was secured using pressure. The patient tolerated the procedure well. Instructions were given to the patient to call if bleeding, temp>100.4 occur. The patient verbalized understanding and agreed with the plan. This note was generated with a voice recognition program. Some errors may have been overlooked during the review of this note. Sometimes these errors may affect the content or meaning of a given sentence. 44148-Vwzeid of Cervix Procedure code (CPT) selection complete Assessment & Plan Assessment & Plan (1) Well woman exam: Code(s): Z01.419 - Encounter for gynecological examination (general) (routine) without abnormal findings Plan: Co testing not indicated this year. Counseled the patient about the recommended dietary allowance of 1200 mg of Calcium & 600 IU of vitamin D. Instructions given the patient to schedule next screen Mammogram in 02/26. The patient was instructed to perform monthly self-breast exams and schedule annual exam in a year. All questions answered and the patient verbalized understanding. (2) Postmenopausal bleeding: Code(s): N95.0 - Postmenopausal bleeding Plan: Discussed with the patient the differential diagnosis of post menopausal bleeding with normal pelvic exam including but not limited to, endometrial hyperplasia, cancer, polyps and other causes; co testing not indicated this, recommended ultrasound to measure the endometrial stripe; discussed with the patient that if the endometrial thickness is 4 mm or less the negative predictive value of endometrial pathology is 99%, otherwise If endometrial thickness is more than 4 mm will proceed with endometrial sampling versus hysteroscopy D&C polypectomy depending on the ultrasound findings. Instructed the patient to schedule an ultrasound follow-up appointment in 2 weeks. All questions answered, the patient verbalized understanding and agreed with the plan. (3) Cervical polyp: Code(s): N84.1 - Polyp of cervix uteri Plan: Discussed with the patient the finding on exam showing a cervical polyp, polypectomy done, see procedure note Orders: Orders AMB SYSTEMS SOFTWARE SPECIALIST Biopsy Today N84.1 - Polyp of cervix uteri US pelvic and transvaginal Today N95.0 - Postmenopausal bleeding Coding Level of Care Code Procedure Only Diagnoses Well woman exam Z01.419 Postmenopausal bleeding N95.0 Cervical polyp N84.1 CPT Codes SYSTEMS SOFTWARE SPECIALIST Biopsy - CPT: 30465-Qbrtey of Cervix ([id number])
[2023-09-14 12:00] VITALS: BP 110/70; BMI 43.6
== END 2023-09-14 12:27 | disposition home or self-care (01) ==
LOC: HO.HWS 11:48
PROVIDERS: PCP Internal Medicine; Visit Provider Obstetrics & Gynecology
DX: Z01.411 Encounter for gynecological examination (general) (routine) with abnormal findings (principal); N95.0 Postmenopausal bleeding; N84.1 Polyp of cervix uteri
CPT/HCPCS: 57500; 99396

== ENCOUNTER 2023-09-14 11:48 | Outpatient (REF) | payer OTHER, SELFPAY | END 2023-09-14 11:49 | disposition home or self-care (01) | LOC: HO.LNP 11:48 | PROVIDERS: PCP Internal Medicine; Visit Provider Obstetrics & Gynecology | DX: Z01.419 Encounter for gynecological examination (general) (routine) without abnormal findings (principal); N84.1 Polyp of cervix uteri; N95.0 Postmenopausal bleeding | CPT/HCPCS: 57500; 88305; 99396 ==

== ENCOUNTER → 2023-09-20 07:41 | Outpatient (REF) | payer OTHER, SELFPAY ==
--- NOTE | 2023-09-20 07:44 | CA_ITS ---
Transthoracic Echocardiogram Patient (Last, First, Middle): Nayana White, Gender: Female Date of : 1965 Age: 58 Procedure Date: 09/20/2023 Procedure Type: Transthoracic Echocardiogram Location: OP Height: 160.02 cm Weight: 111.59 kg BSA: 2.11 m2 Heart Rate: 56 bpm BP: 112 / 68 mmHg Animal Care Supervisor: SB Referring MD: Carline Kruse MD Symptoms: I10 - Essential (primary) hypertension Study Quality: Adequate ECG Rhythm: Bradycardia Conclusions: - The left ventricular systolic function is normal. The calculated ejection fraction is 67% by biplane method. - Evidence suggests grade II (moderate) diastolic dysfunction. - There is an interatrial septal aneurysm seen bowing to the right. - No obvious valvular pathology seen on this study. Findings Left Ventricle Normal left ventricular cavity size. There is normal left ventricular wall thickness. The left ventricular systolic function is normal. The calculated ejection fraction is 67% by biplane method. There is no evidence of regional wall motion abnormalities. Evidence suggests grade II (moderate) diastolic dysfunction. There is mild septal and mild basal asymmetric hypertrophy. LV peak GLS -19.9%. Right Ventricle Normal right ventricular cavity size and systolic function. Atria The left atrium is mildly dilated. There is an interatrial septal aneurysm seen bowing to the right. Interatrial shunt cannot be excluded. The right atrium is normal in size. Aortic Valve There is a normal trileaflet aortic valve. There is no aortic valve stenosis. There is no aortic valve regurgitation. Mitral Valve There is mild mitral annular calcification. There is trace mitral valve regurgitation. There is no mitral valve stenosis. Pulmonic Valve The pulmonic valve is likely normal. Tricuspid Valve There is trace tricuspid valve regurgitation. There is no evidence of pulmonary hypertension. Great Vessels The asc aorta and aortic arch are normal in size. Venous The inferior vena cava is normal in size and collapses less than 50% with inspiration. Pericardium/Pleural There is no evidence of pericardial effusion. Prior Study Comparison No prior study available for comparison. Recommendations, Care & Conclusions No obvious valvular pathology seen on this study. Measurements 2D Linear Measurements IVSd: 0.97 0.6-0.9/0.6-1.0 cm LVIDd: 5.43 3.9-5.3/4.2-5.9 cm LVIDd Index: 2.57 2.4-3.2/2.2-3.1 cm/m2 LVIDs: 3.40 2.0-3.6 cm LVPWd: 1.08 0.7-1.1 cm LA Diam: 5.10 2.7-3.8/3.0-4.0 cm LAIDs Index: 2.42 1.5-2.3 cm/m2 LV Mass: 268.39 67-162/88-224 g LV Mass Index: 127.20 43-95/49-115 g/m2 LVOT Diam: 2.00 3.0+(-)1.3 cm 2D Systolic Function EF 4C: 64.60 >55% EF 2C: 69.30 >55% EF BiP: 66.80 >55% Mitral Valve MV VTI: 0.38 MV Pk José Luis: 1.08 MV Mn José Luis: 0.60 MV Pk Grad: 5.00 MV Mn Grad: 2.00 MV Pk E: 1.14 MV PK A: 0.75 MV Decel Time: 216.00 E/A: 1.50 E'Lateral: 6.09 E'Medial: 5.11 E/E' Med: 22.30 E/E' Lat: 18.70 PHT: 63.00 MVA PHT: 3.49 MVA Continuity: 2.37 Decel [place]: 5.27 Aortic Valve AoV Pk José Luis: 1.53 AoV Pk Grad: 9.00 ANNABELLE: 2.38 LVOT LVOT Pk José Luis: 1.18 LVOT Mn José Luis: 0.80 LVOT VTI: 0.29 LVOT Pk Grad: 6.00 LVOT Mn Grad: 3.00 LVOT Diam: 2.00 LVOT Area: 3.14 Diastolic Function MV Pk E: 1.14 MV Pk A: 0.75 E/A: 1.50 E'Medial: 5.11 E/E' Med: 22.30 E' Laterial: 6.09 E/E' Lat: 18.70 Tricuspid Valve TR Pk José Luis: 2.62 TR Pk Grad: 27.00 RA Press: 8.00 RVSP: 35.00 Great Vessels Aorta Sinus of Valsalva: 3.00 2.0-3.5 cm Ao Asc: 3.60 2.1-3.4 cm Ao Arch: 3.00 Ao Desc: 1.70 Pulmonary Veins Pulm Vein S/D 1.30 Pulmonary Valve PV Pk José Luis: 1.04 Peak PV Grad: 4.00 Updated in Other Vendor System with Status of Final Rocky Mayo MD electronically signed on 09/20/2023 10:07:00 AM with status of Final
== END ==
LOC: HO.CARD 07:41
PROVIDERS: PCP Internal Medicine; Visit Provider Internal Medicine
DX: I11.9 Hypertensive heart disease without heart failure (principal)
CPT/HCPCS: 93306; 93356

== ENCOUNTER → 2023-09-20 07:44 | Outpatient (BNV) | payer OTHER, SELFPAY | PROVIDERS: PCP Internal Medicine; Visit Provider Internal Medicine | DX: I11.9 Hypertensive heart disease without heart failure (principal) | CPT/HCPCS: 93306 ==

== ENCOUNTER 2023-10-11 12:44 | Outpatient (AMB) | payer OTHER, SELFPAY ==
[2023-10-11 13:12] VITALS: BP 120/75; PULSE 60; O2SAT 97; BMI 44.1
--- NOTE | 2023-10-11 13:12 | A.OFFPC_ITS ---
Vital Signs 10/11/23 13:12 Height 5 ft 3 in Weight 249 lb 4 oz BMI 44.1 BP 120/75 Blood Pressure Location Lt brachial Position Sitting Pulse 60 Pulse Source Pulse Oximeter Pulse Oximetry (%) 97 Oxygen Delivery Method Room Air Intake Visit Reasons: 1 month f/u Intake Note: Pt is here today for her 1 month Allergies lisinopril [LISINOPRIL] Allergy (Unknown, Verified 10/11/23 13:28) COUGH metoprolol [METOPROLOL] Allergy (Unknown, Verified 10/11/23 13:28) ANKLE SWELLING, swelling Medication List - Last Reconciled 10/11/23 by Carline Kruse MD amlodipine 5 mg PO DAILY carvedilol 25 mg PO BID cholecalciferol (vitamin D3) 50 mcg PO DAILY losartan-hydrochlorothiazide 100-12.5 mg 1 tab PO DAILY magnesium 200 mg PO DAILY vitamin K2 100 mcg PO DAILY Tobacco use date assessed: 10/11/23 Dental Screening Dental Screen Date: 10/11/23 Did you have a dental visit in the last 12 months?: Yes Did you have a dental problem in the last 6 months where you did not have access to dental care?: No Was dental information given to patient?: Patient has dentist HPI 1 month f/u HPI Details 58-year-old lady here today for follow-u p on her hypertension. She is currently taking amlodipine 5 mg daily and carvedilol 25 mg twice a day and losartan HCTZ 100-12.5 mg 1 daily. She has been compliant with taking her medications, and has been cutting back on lot of salt in her diet. Trying to eat healthy. Blood pressure today is within normal limits. Patient feels well with no complaints at present time [facility] Medical History (Updated 10/25/23 @ 02:04 by Carline Kruse MD) Atrial aneurysm Hypertensive cardiomegaly Uncontrolled hypertension REGIS on CPAP Breast cancer Morbid obesity Vitamin D deficiency Menopause Tubular adenoma of colon Infiltrating ductal carcinoma of right breast Hypertriglyceridemia Essential hypertension Surgical History Hx of cataract extraction History of colonoscopy History of lumpectomy of right breast Family History Father Unknown family medical history Cancer Pneumonia due to COVID-19 virus Mother Depression Mental health disorder Lung cancer Smoker Brother No problems noted. Brother No problems noted. Son No problems noted. Son No problems noted. Daughter No problems noted. Daughter No problems noted. 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 1. Little interest or pleasure in doing things: not at all 2. Feeling down, depressed, or hopeless: not at all 3. Trouble falling or staying asleep, or sleeping too much: not at all 4. Feeling tired or having little energy: not at all 5. Poor appetite or overeating: not at all 6. Feeling bad about yourself - or that you are a failure or have let yourself or your family down: not at all 7. Trouble concentrating on things, such as reading the newspaper or watching television: not at all 8. Moving or speaking so slowly that other people could have noticed. Or the opposite - being so fidgety or restless that you have been moving around a lot more than usual: not at all 9. Thoughts that you would be better off or of hurting yourself in some wa y: not at all Total score: 0 Depression Screening Interpretation: Negative Depression Screening Done: Yes 12666 - PHQ-9 Billing: Yes Source: Developed by Drs. Delano Coronel, Arely Tilley, Ernesto Arrieta and colleagues, with an educational isac from [employer]. Thrive Questionnaire Date Thrive assessed: 10/11/23 I am a: Patient What is your living situation today?: I have a steady place to live Within the past 12 months, did the food you bought not last and you didn't have the money to get more?: Never true Within the past 12 months, did you worry whether your food would run out before you got money to buy more?: Never true Do you have trouble paying for medicines?: No Do you have trouble getting transportation to medical appointments?: No Do you have trouble paying your heating and electricity bill?: No Do you have trouble taking care of your child, family member or friend?: No Do you have trouble with day-to-day activities such as bathing, preparing meals, shopping, managing finances, etc.?: No Are you currently unemployed and looking for a job?: No Are you interested in more education?: No THRIVE Score: 0 AUDIT C Alcohol Use Questionnaire (AUDIT-C) 1. How often do you have a drink containing alcohol?: Never 3. How often do you have six or more drinks on one occasion?: Never Total Score: 0 Score Reviewed/Action Taken: Yes ALFREDO-7 AMB Questionnaire ALFREDO-7 Date ALFREDO - 7 assessed: 10/11/23 Feeling nervous, anxious, or on edge: 0 = Not at all Not being able to stop or control worryin = Not at all Worrying too much about different things: 0 = Not at all Trouble relaxin = Not at all Being so restless that it is hard to sit still: 0 = Not at all Becoming easily annoyed or irritable: 0 = Not at all Feeling afraid as if something awful might happen: 0 = Not at all Total ALFREDO-7 score (0-4 normal; 5-9 mild; 10-14 moderate; 15-21 severe): 0 Source: Developed by Drs. Delano Coronel, Arely Tilley, Ernesto Arrieta and colleagues, with an educational isac from [employer]. ALFREDO-7 Assessment Billing ALFREDO-7 Assessment Tool: ALFREDO-7 Assessment 21865 Review of Systems Const All systems reviewed & are unremarkable except as noted in HPI and below ENT Reports Normal hearing present Card Reports no additional complaints Resp Reports no additional complaints GI Reports no additional complaints Reports no additional complaints Musc Reports stiffness Neuro Reports Normal hearing present Physical exam (Primary Care) Vital Signs: Last Vital Signs Pulse 60 10/11/23 13:12 BP 120/75 10/11/23 13:12 Pulse Ox 97 10/11/23 13:12 Oxygen Delivery Method Room Air 10/11/23 13:12 BMI result Body Mass Index 44.1 BMI Assessment/Plan discussion: High BMI High, discussed plan: lifestyle, weight reduction, dietary and physical activity Tobacco/Smoking Status: Tobacco use Status Tobacco use date assessed 10/11/23 10/11/23 13:17 Patient Tobacco Use Status Never used Tobacco 10/11/23 13:12 e-Cigarette/Vaping Use Never Used 10/11/23 13:12 PHQ-9: PHQ-9 Score PHQ-9: Total score 0 10/11/23 13:58 Depression Screening Interpretation: Negative Thrive Assessment: Date of Thrive Assessment Date Thrive assessed 10/11/23 10/11/23 13:58 Const General: cooperative and no acute distress Nutritional Appearance: obese morbidly obese Orientation/consciousness: patient oriented x3 HENMT Head: Yes normocephalic Ears: external ears normal, TM's normal bilaterally and EAC's normal General nose exam: Normal external nose present and No nasal discharge present Face and sinus: Yes face symmetric Mouth: Normal oral and palatal mucosa present, oropharynx normal and moist mucous membranes Neck Neck: Yes full ROM and Yes no lymphadenopathy Thyroid: Thyroid normal Carotids: normal carotid upstroke Resp Effort & Inspection: normal respiratory effort and able to speak in complete sentences Auscultation: clear to auscultation bilaterally Cardio Jugular venous distension: no JVD Rate: regular rate Rhythm: regular rhythm Heart sounds: S1 normal heart sound present and S2 normal heart sound present GI Inspection: Yes normal to inspection Palpation (GI): Soft to palpation Auscultation: normal bowel sounds General: Yes no CVA tenderness Back/Spine/Pelvis Back: no CVA tenderness Skin General skin exam: no rashes or lesions noted Rashes: no rashes Neuro General: patient oriented x3, gait normal, moves all extremities, no focal motor deficits and CN's II-XI intact bilaterally Cranial nerves: Yes Normal hearing present Cognition (Neuro): normal cognition Gait exam (Neuro): Normal gait present Motor exam (neuro): 5/5 motor strength present throughout Extrem General: Yes normal to inspection, Yes full ROM, Yes no pedal edema and Yes normal gait Assessment and Plan Assessment & Plan (1) Essential hypertension: Code(s): I10 - Essential (primary) hypertension Plan: Blood pressure at goal of less than 130/80. Continue with current medication. Reinforced importance of following a low sodium diet, getting regular exercise, and lowering stress levels. Coding Level of Care Code Est Pt Level 3 (19015) Diagnoses Essential hypertension I10 Additional Codes ALFREDO-7 Assessment Billing - ALFREDO-7 Assessment Tool: ALFREDO-7 Assessment 34234 ([id number])
== END 2023-10-11 14:51 | disposition home or self-care (01) ==
PROVIDERS: PCP Internal Medicine; Visit Provider Internal Medicine
DX: I10 Essential (primary) hypertension (principal)
CPT/HCPCS: 99213

== ENCOUNTER 2023-10-12 11:00 | Outpatient (REF) | payer OTHER, SELFPAY ==
--- NOTE | ~2023-10-12 | US_ITS ---
EXAMINATION: US PELVIS COMPLETE CLINICAL INFORMATION: Postmenopausal bleeding; the last menstrual period was 10 years prior. COMPARISON: None. TECHNIQUE: Transabdominal and transvaginal imaging were performed. FINDINGS: The uterus is of normal size and echogenicity, measuring 10.1 x 4.3 x 6.5 cm. The uterus is anteverted and anteflexed. A heterogeneous, cystic endometrium is identified measuring 2.2 cm. Nabothian cysts are seen within the cervix FIBROIDS: There is 1 fibroid seen. 1. Location: Leftward fundus, myometrial. Size: 1.9 x 1.3 x 1.8 cm. Fibroid characteristics: Hypoechoic, with a coarse shadowing calcification. Both ovaries are of normal size and echogenicity. The right ovary measures 2.7 x 1.1 x 2.0 cm for a volume of 3.1 mL. The left ovary measures 1.3 x 1.6 x 1.6 cm for a volume of 1.7 mL. There is no pelvic free fluid. No adnexal mass is seen. US/US pelvic and transvaginal IMPRESSION: 1. There is markedly abnormal postmenopausal endometrial stripe thickening to 2.2 cm, with cystic change. Gynecology evaluation and management is recommended, with consideration for tissue sampling. 2. Nabothian cysts are seen within the cervix. 3. A small uterine fibroid is seen, with coarse calcification.
== END 2023-10-12 11:01 | disposition home or self-care (01) ==
LOC: HO.US 11:00
PROVIDERS: PCP Internal Medicine; Visit Provider Obstetrics & Gynecology
DX: N95.0 Postmenopausal bleeding (principal)
CPT/HCPCS: 76830; 76856

== ENCOUNTER 2023-10-28 09:36 | Outpatient (AMB) | payer OTHER, SELFPAY ==
--- NOTE | 2023-10-28 09:58 | A.OFFVIS_ITS ---
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 Ultrasound showed the following: The uterus is of normal size and echogenicity, measuring 10.1 x 4.3 x 6.5 cm. The uterus is anteverted and ant eflexed. A heterogeneous, cystic endometrium is identified measuring 2.2 cm. Nabothian cysts are seen within the cervix FIBROIDS: There is 1 fibroid seen. 1. Location: Leftward fundus, myometrial. Size: 1.9 x 1.3 x 1.8 cm. Fibroid characteristics: Hypoechoic, with a coarse shadowing calcification. Both ovaries are of normal size and echogenicity. The right ovary measures 2.7 x 1.1 x 2.0 cm for a volume of 3.1 mL. The left ovary measures 1.3 x 1.6 x 1.6 cm for a volume of 1.7 mL. There is no pelvic free fluid. No adnexal mass is seen. ON LICENSE OF [facility] Medical History Atrial aneurysm Hypertensive cardiomegaly Uncontrolled hypertension REGIS on CPAP Breast cancer Morbid obesity Vitamin D deficiency Menopause Tubular adenoma of colon Infiltrating ductal carcinoma of right breast Hypertriglyceridemia Essential hypertension Surgical History Hx of cataract extraction History of colonoscopy History of lumpectomy of right breast Family History Father Unknown family medical history Cancer Pneumonia due to COVID-19 virus Mother Depression Mental health disorder Lung cancer Smoker Brother No problems noted. Brother No problems noted. Son No problems noted. Son No problems noted. Daughter No problems noted. Daughter No problems noted. 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 Cognitive needs: No Hearing needs: No Vision needs: No Review of Systems Const All systems reviewed & are unremarkable except as noted in HPI and below Reports as per HPI and Reports no additional complaints GI Reports no additional complaints Reports no additional complaints Physical Exam Vital Signs: Last Vital Signs BP 116/68 10/28/23 10:04 BMI result Body Mass Index 44.1 Office Procedures Endometrial Biopsy Details: The patient was counseled regarding the indication and benefits of endometrial sampling to rule out endometrial pathology including not limited to endometrial hyperplasia or endometrial cancer and others; The alternatives (Either do nothing vs. hysteroscopy D&C) & the risks were discussed with the patient inclu ding but not limited: pain, uterine perforation, bleeding, infection, possible injury to bladder, bowel, ureter, possible need for blood transfusion with all its possible risks. The patient verbalized understanding all questions answered and signed consent. The patient was placed into the dorsal lithotomy position; a speculum was inserted in the vagina. Using aseptic technique for the procedure, the cervix was cleansed with Betadine. The anterior lip of the cervix was grasped with a single tooth tenaculum. The uterus was sounded to 8 cm with a 4 mm Pipelle was used. Tissues samples were obtained and placed in formalin, in a patient labeled container and sent to the pathology department. At the end of the procedure, there was minimal bleeding noted The patient tolerated the procedure well and was discharged in good condition with the following instructions: Nothing in the vagina until the bleeding stops. No sex until the bleeding stops, to call if any of the following occurs: fever (>100.4), flu-like symptoms, abdominal pain, heavy bleeding, four smelling vaginal discharge. The patient was instructed to schedule a Follow up appointment in 2 weeks to discuss pathology results of the biopsy and treatment options. This note was generated with a voice recognition program. Some errors may have been overlooked during the review of this note. Sometimes these errors may affect the content or meaning of a given sentence. [id number] Biopsy Assessment & Plan Assessment & Plan (1) Postmenopausal bleeding: Comment: Abnormal thickened and cystic endometrium on ultrasound Code(s): N95.0 - Postmenopausal bleeding Plan: Discussed with the patient the pelvic ultrasound findings, the endometrial stripe thickenss measured by ultrasound was more than 4mm. The negative predictive value, positive predictive value, Sensitivity, specificity of using ultrasound measurement of endometrial stripe to detecting endometrial pathology including hyperplasia , polyp or cancer were discussed with the patient. Recommended to the patient that the next step is an endometrial sampling via hysteroscopy D&C possible polypectomy versus endometrial biopsy to r/o endometri al pathology including hyperplasia or cancer. All the pros and cons risks and benefits of each approach were discussed with the patient, endometrial biopsy being less invasive, office procedure with less sensitivity and inability diagnose a polyp and removal versus hysteroscopy done under anesthesia more invasive more sensitive to endometrial cancer and possibility of diagnosing and endometrial polyp with the possibility of polypectomy. All questions were answered pt verbalized understanding and decided to proceed with endometrial biopsy, EMB done, see procedure (2) Uterine myoma: Code(s): D25.9 - Leiomyoma of uterus, unspecified Plan: Discussed with the patient the findings on pelvic ultrasound & the risk of myosarcoma; discussed with the patient the options of treatment including expectant management versus hysterectomy; the pros and cons, risks benefits of each approach were discussed with the patient including the fact that in cases of myosarcoma, surgical treatment can lead to early diagnosis and positively affects the prognosis; after further discussion, the patient decided to proceed with expectant management. Will repeat pelvic ultrasound periodically. Instructions given to patient to call in case any of the following occurs: pressure symptoms, abnormal uterine bleeding, pelvic pain; and to schedule a future office follow-up appointment for reassessment and to order a repeat ultrasound . All questions answered, the patient verbalized understanding and a greed with the plan . Orders: Orders AMB Endometrial Biopsy Today N95.0 - Postmenopausal bleeding Coding Level of Care Code Est Pt Level 3 (11431) Procedure Only Diagnoses Postmenopausal bleeding N95.0 Uterine myoma D25.9 CPT Codes Endometrial Biopsy - CPT: 03632-[id number] Biopsy ([id number])
[2023-10-28 10:04] VITALS: BP 116/68; BMI 44.1
== END 2023-10-28 10:21 | disposition home or self-care (01) ==
LOC: HO.HWS 09:36
PROVIDERS: PCP Internal Medicine; Visit Provider Obstetrics & Gynecology
DX: N95.0 Postmenopausal bleeding (principal); D25.9 Leiomyoma of uterus, unspecified
CPT/HCPCS: 58100; 99213

== ENCOUNTER 2023-10-28 09:36 | Outpatient (REF) | payer OTHER, SELFPAY | END 2023-10-28 09:37 | disposition home or self-care (01) | LOC: HO.LNP 09:36 | PROVIDERS: PCP Internal Medicine; Visit Provider Obstetrics & Gynecology | DX: N95.0 Postmenopausal bleeding (principal); N88.8 Other specified noninflammatory disorders of cervix uteri; D25.9 Leiomyoma of uterus, unspecified | CPT/HCPCS: 58100; 88305; 99212 ==

== ENCOUNTER 2023-11-24 09:10 | Outpatient (AMB) | payer OTHER, SELFPAY ==
--- NOTE | 2023-11-24 09:29 | MHC.OFFVIS ---
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 The patient has no complaints, no vaginal bleeding, no feverishness chills or abdominal pain. Endometrial biopsy pathology showed the following: Endometrium, biopsy: - Fragments of benign inactive endometrium/lower uterine segment. - Endometrial polyp with focal mucinous metaplasia. - Strips of endocervical epithelium within normal limits; mucoinflammatory material. - No atypia identified [facility] Medical History Atrial aneurysm Hypertensive cardiomegaly Uncontrolled hypertension REGIS on CPAP Breast cancer Morbid obesity Vitamin D deficiency Menopause Tubular adenoma of colon Infiltrating ductal carcinoma of right breast Hypertriglyceridemia Essential hypertension Surgical History Hx of cataract extraction History of colonoscopy History of lumpectomy of right breast Family History Father Unknown family medical history Cancer Pneumonia due to COVID-19 virus Mother Depression Mental health disorder Lung cancer Smoker Brother No problems noted. Brother No problems noted. Son No problems noted. Son No problems noted. Daughter No problems noted. Daughter No problems noted. 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 Cognitive needs: No Hearing needs: No Vision needs: No Female Reproductive History Menstrual Date of last menstrual period: 07/04/20 Total pregnancies: 2 Full term: 2 Review of Systems Card Reports as per HPI and Reports no additional complaints Resp Reports as per HPI and Reports no additional complaints GI Reports as per HPI and Reports no additional complaints Reports as per HPI Physical Exam Vital Signs: Last Vital Signs BP 120/74 11/24/23 09:30 BMI result Body Mass Index 44.1 Assessment & Plan Assessment & Plan (1) Postmenopausal bleeding: Comment: Endometrial polyp on EMB pathology Abnormal thickened and cystic endometrium on ultrasound Code(s): N95.0 - Postmenopausal bleeding Plan: Discussed with the patient the results of the EMB pathology showing endometrial polyp with mucinous metaplasia, recommended hysteroscopy D&C possible polypectomy/myomectomy. Since the patient has history of hypertension and atrial aneurysm, will request cardiac clearance preoperatively, the patient is scheduled to see Cardiology on 12/28/2023, if the patient is medically cleared, will schedule patient for hysteroscopy D&C possible polypectomy/myomectomy. Instructions given the patient to schedule a preop visit after 12/27. All questions answered, the patient verbalized understanding Coding Level of Care Code Est Pt Level 3 (29070) Diagnoses Postmenopausal bleeding N95.0
[2023-11-24 09:30] VITALS: BP 120/74; BMI 44.1
== END 2023-11-24 11:55 | disposition home or self-care (01) ==
PROVIDERS: PCP Internal Medicine; Visit Provider Obstetrics & Gynecology
DX: N95.0 Postmenopausal bleeding (principal)
CPT/HCPCS: 99213

== ENCOUNTER → 2023-11-24 09:10 | Outpatient (BNVA) | payer OTHER, SELFPAY | PROVIDERS: PCP Internal Medicine; Visit Provider Obstetrics & Gynecology | DX: N95.0 Postmenopausal bleeding (principal) | CPT/HCPCS: 99212 ==

== ENCOUNTER 2023-12-28 13:41 | Outpatient (AMB) | payer OTHER, SELFPAY ==
--- NOTE | 2023-12-28 13:57 | MHC.OFFVIS ---
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 feeling good BP is normal at this time Street Flusher Driver Required: No Allergies lisinopril [LISINOPRIL] Allergy (Unknown, Verified 10/28/23 10:04) COUGH metoprolol [METOPROLOL] Allergy (Unknown, Verified 10/28/23 10:04) ANKLE SWELLING, swelling Medication List - Last Reconciled 12/28/23 by Delio Bocanegra MD amlodipine 5 mg PO DAILY carvedilol 25 mg PO BID cholecalciferol (vitamin D3) 50 mcg PO DAILY losartan-hydrochlorothiazide 100-12.5 mg 1 tab PO DAILY magnesium 200 mg PO DAILY vitamin K2 100 mcg PO DAILY HPI Comments Details: Thank you for referring Nayana in cardiology consultation today for management of abnormal echocardiogram finding. Echocardiogram shows normal LV systolic function but grade 2 diastolic dysfunction. Shows intra-atrial septal aneurysm towards the right most suggestive of elevated left atrial pressures. Intra-atrial septal aneurysm is of no concern at this point time. She is longstanding history of hypertension which is currently well optimized on current therapy. She also has history of sleep apnea for which she is on CPAP therapy and using it regularly. She denies any significant cardiac symptoms. Denies any exertional chest pain or shortness of breath. Has reasonable functional capacity. Denies any orthopnea, PND, leg edema. No weight gain abnormally. She has been trying to lose weight. She is to undergo surgery from office machine servicer apprentice perspective for endometrial polyp under general anesthesia. Denies any prolonged palpitations, lightheadedness, syncope. [facility] Medical History Atrial aneurysm Hypertensive cardiomegaly Uncontrolled hypertension REGIS on CPAP Breast cancer Morbid obesity Vitamin D deficiency Menopause Tubular adenoma of colon Infiltrating ductal carcinoma of right breast Hypertriglyceridemia Essential hypertension Surgical History Hx of cataract extraction History of colonoscopy History of lumpectomy of right breast Family History Father Unknown family medical history Cancer Pneumonia due to COVID-19 virus Mother Depression Mental health disorder Lung cancer Smoker Brother No problems noted. Brother No problems noted. Son No problems noted. Son No problems noted. Daughter No problems noted. Daughter No problems noted. 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 Cognitive needs: No Hearing needs: No Vision needs: No Review of Systems Const Denies chills, Denies fatigue, Denies fever(s), Denies frequent falls, Denies weakness, Denies weight gain and Denies weight loss ENT Denies dizziness Card Denies chest pain, Denies leg edema, Denies lightheadedness, Denies palpitations, Denies dyspnea, Denies dyspnea on exertion, Denies orthopnea and Denies other (loss of consciousness) Resp Denies cough, Denies dyspnea and Denies dyspnea on exertion GI Denies hematochezia and Denies change in stool character Musc Denies abnormal gait, Denies muscle weakness, Denies numbness, Denies radiating pain into limb and Denies tingling Neuro Denies abnormal gait, Denies dizziness, Denies frequent falls, Denies numbness, Denies tingling and Denies weakness Endo Denies fatigue and Denies palpitations Physical Exam Vital Signs: Last Vital Signs Pulse 65 12/28/23 13:58 BP 120/70 12/28/23 13:58 BMI result Body Mass Index 44.1 Const General: cooperative, comfortable, no acute distress, alert, awake and Physically active Nutritional Appearance: obese Orientation/consciousness: patient oriented x3 Limitations: no limitations HEENT Head: Yes normocephalic and Yes atraumatic Neck Neck: Yes trachea midline, Yes supple and Yes no JVD Resp Effort & Inspection: normal respiratory effort Auscultation: clear to auscultation bilaterally Cardio Jugular venous distension: no JVD Palpation: normal PMI Rate: regular rate Rhythm: regular rhythm Heart sounds: S1 normal heart sound present, S2 normal heart sound present, no click, no gallops, no murmurs, no rubs and Other heart sounds present (S4 present) GI Auscultation: normal bowel sounds Skin General skin exam: no rashes or lesions noted Neuro General: patient oriented x3 and no focal motor deficits Extrem General: Yes no clubbing, cyanosis or edema Office Procedures EKG Details: EKG shows normal sinus rhythm with low-voltage QRS with poor R-wave progression most likely lead placement and body habitus 60898-[id number], Complete Assessment & Plan Assessment & Plan (1) Diastolic dysfunction: Code(s): I51.89 - Other ill-defined heart diseases Category: Medical Plan: Patient with grade 2 diastolic dysfunction without any symptoms or signs congestive heart failure. This could potentially give her symptoms exertional shortness of breath was explained to her. However management of this will include management underlying comorbidities. She has longstanding hypertension, morbid obesity as well as sleep apnea all responsible for possibly contributing to her development of diastolic dysfunction. She is at risk for developing heart failure in the future. Advise aggressive medical therapy. Blood pressure is currently well optimized. Continue current therapy. Importance of good blood pressure control was discussed. Advised to monitor blood pressure at home maintain a log. Goal blood pressure less than 130/84. Avoidance of salt loading was discussed. Continue CPAP therapy. Advised to participate in aggressive weight program. (2) Preoperative cardiovascular examination: Code(s): Z01.810 - Encounter for preprocedural cardiovascular examination Category: Medical Plan: Preoperative cardiovascular risk stratification this middle-aged woman with diastolic dysfunction but without any symptoms suggestive angina with good functional capacity and no signs or symptoms of heart failure. She is currently optimized to undergo surgery from office machine servicer apprentice perspective which is considered low risk surgery with low to intermediate risk for perioperative cardiovascular morbidity mortality. Continue all her antihypertensives in the perioperative.. She as obstructive sleep apnea and this needs to be paid attention to by the anesthesia team. No other testing require prior to the procedure. Will follow up in the clinic in 1 year's time, sooner p.r.n.. Thank you for allowing me to partake in her care Coding Level of Care Code New Pt Level 4 (26201) Diagnoses Diastolic dysfunction I51.89 Preoperative cardiovascular examination Z01.810 CPT Codes EKG - CPT: 59099-[id number], Complete ([id number])
[2023-12-28 13:58] VITALS: BP 120/70; PULSE 65; BMI 44.1
== END 2023-12-28 14:41 | disposition home or self-care (01) ==
PROVIDERS: PCP Internal Medicine; Visit Provider Internal Medicine Cardiovascular Disease
DX: I51.89 Other ill-defined heart diseases (principal); Z01.810 Encounter for preprocedural cardiovascular examination
CPT/HCPCS: 93010; 99204

== ENCOUNTER → 2023-12-28 13:41 | Outpatient (BNVA) | payer OTHER, SELFPAY | PROVIDERS: PCP Internal Medicine; Visit Provider Internal Medicine Cardiovascular Disease | DX: Z01.810 Encounter for preprocedural cardiovascular examination (principal); I10 Essential (primary) hypertension; G47.30 Sleep apnea, unspecified; I51.89 Other ill-defined heart diseases; Z99.89 Dependence on other enabling machines and devices | CPT/HCPCS: 93005; 99202 ==

== ENCOUNTER 2023-12-29 12:50 | Outpatient (AMB) | payer OTHER, SELFPAY ==
[2023-12-29 13:04] VITALS: BP 118/74; BMI 44.1
--- NOTE | 2023-12-29 13:04 | MHC.OFFVIS ---
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 The patient has no complaints, no vaginal bleeding, no feverishness chills or abdominal pain. Endometrial biopsy pathology showed the following: Endometrium, biopsy: - Fragments of benign inactive endometrium/lower uterine segment. - Endometrial polyp with focal mucinous metaplasia. - Strips of endocervical epithelium within normal limits; mucoinflammatory material. - No atypia identified Given the patient cardia history, the patient's so Cardiology yesterday and states that she was cleared for the procedure, no reports available [facility] Medical History Atrial aneurysm Hypertensive cardiomegaly Uncontrolled hypertension REGIS on CPAP Breast cancer Morbid obesity Vitamin D deficiency Menopause Tubular adenoma of colon Infiltrating ductal carcinoma of right breast Hypertriglyceridemia Essential hypertension Surgical History Hx of cataract extraction History of colonoscopy History of lumpectomy of right breast Family History Father Unknown family medical history Cancer Pneumonia due to COVID-19 virus Mother Depression Mental health disorder Lung cancer Smoker Brother No problems noted. Brother No problems noted. Son No problems noted. Son No problems noted. Daughter No problems noted. Daughter No problems noted. 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 Cognitive needs: No Hearing needs: No Vision needs: No Female Reproductive History Menstrual Date of last menstrual period: 07/04/20 Total pregnancies: 2 Full term: 2 Review of Systems Card Reports as per HPI and Reports no additional complaints Resp Reports as per HPI and Reports no additional complaints GI Reports as per HPI and Reports no additional complaints Reports as per HPI Physical Exam Const General: cooperative, healthy appearing and comfortable Resp Effort & Inspection: normal respiratory effort Auscultation: clear to auscultation bilaterally Percussion: percussion normal Cardio Palpation: normal PMI Rate: regular rate Rhythm: regular rhythm Heart sounds: no murmurs and no rubs Peripheral pulses: Peripheral pulses 2+ throughout GI Inspection: Yes normal to inspection Palpation (GI): Soft to palpation, nontender, no guarding, not rigid and No hepatosplenomegaly present Percussion: Yes normal to percussion Auscultation: normal bowel sounds Rectal Exam - Female: deferred Assessment & Plan Assessment & Plan (1) Endometrial polyp: Comment: On EMB pathology Code(s): N84.0 - Polyp of corpus uteri Category: Medical Plan: Once cardiology clearance is available will schedule hysteroscopy D&C possible polypectomy/myomectomy Discussed with the patient the procedure , all benefits and risks including but not limited to inability to complete the procedure , insufficient endometrial tissue for a complete evaluation of the endometrial cavity , bleeding, infection, possible need for blood transfusion with all its risk ( HIV,syphilis, Hepatitis, anaphylaxis shock, others..), injury to bladder, rectum, possible need for laparoscopy/laparotomy or hysterectomy. The patient verbalized understanding and signed the consent. Instructions given the patient to schedule a 2 week postoperative appointment Coding Level of Care Code Est Pt Level 3 (34422) Diagnoses Endometrial polyp N84.0
== END 2023-12-29 13:18 | disposition home or self-care (01) ==
PROVIDERS: PCP Internal Medicine; Visit Provider Obstetrics & Gynecology
DX: N84.0 Polyp of corpus uteri (principal)
CPT/HCPCS: 99213

== ENCOUNTER → 2023-12-29 12:50 | Outpatient (BNVA) | payer OTHER, SELFPAY | PROVIDERS: PCP Internal Medicine; Visit Provider Obstetrics & Gynecology | DX: N84.0 Polyp of corpus uteri (principal) | CPT/HCPCS: 99212 ==

== ENCOUNTER 2024-01-21 11:25 | Day surgery (SDC) | payer OTHER, SELFPAY ==
[2024-01-19 09:50] VITALS: BMI 44.1
--- NOTE | 2024-01-19 13:28 | P.CONAN_ITS ---
Documented by User: Mariela Gonzalez NP 01/19/24 13:31 HPI - Anesthesia Eval Consult details Narrative: 58yo F for D&C Hysteroscopy,possible myomectomy,possible polypectomy Cardiac optimized abnormal echocardiogram finding. Echocardiogram shows normal LV systolic function but grade 2 diastolic dysfunction. Shows intra-atrial septal aneurysm towards the right most suggestive of elevated left atrial pressures. Intra-atrial septal aneurysm is of no concern at this point time. She is longstanding history of hypertension which is currently well optimized on current therapy. She also has history of sleep apnea for which she is on CPAP therapy and using it regularly. She denies any significant cardiac symptoms. Denies any exertional chest pain or shortness of breath. Has reasonable functional capacity. [facility] Active Problems Active Problems: All Active Problems Preoperative cardiovascular examination (Acute) Diastolic dysfunction (Acute) Endometrial polyp (Acute) Uterine myoma (Acute) Cervical polyp (Acute) Use of letrozole (Femara) (Acute) Atrial aneurysm (Acute) Hypertensive cardiomegaly (Acute) REGIS on CPAP (Acute) Morbid obesity (Acute) Vitamin D deficiency (Acute) Menopause (Acute) Infiltrating ductal carcinoma of right breast (Chronic) Hypertriglyceridemia (Acute) Essential hypertension (Acute) Past Medical History Medical History Atrial aneurysm Hypertensive cardiomegaly Uncontrolled hypertension REGIS on CPAP Breast cancer Morbid obesity Vitamin D deficiency Menopause Tubular adenoma of colon Infiltrating ductal carcinoma of right breast Hypertriglyceridemia Essential hypertension Family History Family History Father Unknown family medical history Cancer Pneumonia due to COVID-19 virus Mother Depression Mental health disorder Lung cancer Smoker Brother No problems noted. Brother No problems noted. Son No problems noted. Son No problems noted. Daughter No problems noted. Daughter No problems noted. Paternal Grandmother Cancer Surgical History Surgical History Hx of cataract extraction History of colonoscopy History of lumpectomy of right breast Social History Social History Household Members: Spouse Housing: House Are you a primary hearing care professional to a significant other at home: No Do you presently have visiting nurse or other home services: No Alcohol intake: current Alcohol intake frequency: holidays/special occasions only Patient Tobacco Use Status: Never used Tobacco e-Cigarette/Vaping Use: Never Used Second Hand Smoke Exposure: No Use of substances other than those prescribed or required for medical reasons: No Are you DNR?: No Advance Directives: No Advance Directives Information Provided: Yes service: No Current occupational status: employed 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 Cognitive needs: No Hearing needs: No Vision needs: No Meds Allergies Allergy/AdvReac Type Severity Reaction Status Date / Time lisinopril [LISINOPRIL] Allergy Unknown COUGH Verified 01/21/24 12:29 metoprolol [METOPROLOL] Allergy Unknown ANKLE Verified 01/21/24 12:29 SWELLING, swelling Home Medications ?Medication ?Instructions ?Recorded ?Confirmed ?Last Taken ?Type cholecalciferol (vitamin D3) 50 50 mcg PO DAILY 09/16/20 01/19/24 Unknown History mcg (2,000 unit) capsule magnesium 200 mg tablet 200 mg PO DAILY 09/16/20 01/19/24 Unknown History vitamin K2 100 mcg capsule 100 mcg PO DAILY 10/11/23 01/19/24 Unknown History Exam Height,Weight and Vital Signs: Height 5 ft 3 in Weight 113 kg Pertinent Lab Results Pertinent Lab Results: Laboratory Tests 08/25/23 10:38 WBC 8.1 Hgb 14.7 Hct 44.8 Sodium 141 Potassium 3.9 Chloride 105 Carbon Dioxide 27 BUN 14 Creatinine 0.68 Narrative Narrative: EKG 12/2023 normal sinus rhythm with low-voltage QRS with poor R-wave progression most likely lead placement and body habitus ECHO 2023 Conclusions: - The left ventricular systolic function is normal. The calculated ejection fraction is 67% by biplane method. - Evidence suggests grade II (moderate) diastolic dysfunction. - There is an interatrial septal aneurysm seen bowing to the right. - No obvious valvular pathology seen on this study. Assessment and Plan Assessment Anesthesia Assessment: Chart Reviewed Documented by User: Marko Rodriguez MD 01/21/24 13:45 [facility] Past Medical History Medical History Atrial aneurysm Hypertensive cardiomegaly Uncontrolled hypertension REGIS on CPAP Breast cancer Morbid obesity Vitamin D deficiency Menopause Tubular adenoma of colon Infiltrating ductal carcinoma of right breast Hypertriglyceridemia Essential hypertension Family History Family History Father Unknown family medical history Cancer Pneumonia due to COVID-19 virus Mother Depression Mental health disorder Lung cancer Smoker Brother No problems noted. Brother No problems noted. Son No problems noted. Son No problems noted. Daughter No problems noted. Daughter No problems noted. Paternal Grandmother Cancer Family history of problems with anesthesia: No Surgical History Surgical History Hx of cataract extraction History of colonoscopy History of lumpectomy of right breast History of Problems with Anesthesia: No Social History Social History Household Members: Spouse Housing: House Are you a primary hearing care professional to a significant other at home: No Do you presently have visiting nurse or other home services: No Alcohol intake: current Alcohol intake frequency: holidays/special occasions only Patient Tobacco Use Status: Never used Tobacco e-Cigarette/Vaping Use: Never Used Second Hand Smoke Exposure: No Use of substances other than those prescribed or required for medical reasons: No Are you DNR?: No Advance Directives: No Advance Directives Information Provided: Yes service: No Current occupational status: employed 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 Cognitive needs: No Hearing needs: No Vision needs: No Meds Allergies Allergy/AdvReac Type Severity Reaction Status Date / Time lisinopril [LISINOPRIL] Allergy Unknown COUGH Verified 01/21/24 12:29 metoprolol [METOPROLOL] Allergy Unknown ANKLE Verified 01/21/24 12:29 SWELLING, swelling Home Medications ?Medication ?Instructions ?Recorded ?Confirmed ?Last Taken ?Type cholecalciferol (vitamin D3) 50 50 mcg PO DAILY 09/16/20 01/19/24 Unknown History mcg (2,000 unit) capsule magnesium 200 mg tablet 200 mg PO DAILY 09/16/20 01/19/24 Unknown History vitamin K2 100 mcg capsule 100 mcg PO DAILY 10/11/23 01/19/24 Unknown History Exam Airway Mallampati Class: I TM Dist: <=3cm Neck ROM: Full Loose/Missing/Broken Teeth: No Heart: ok. see above. Lungs: ok Assessment and Plan Assessment Anesthesia Assessment: Anesthesia Plan Discussed Final Anesthetic Review Family History of Problems with Anesthesia: No History of Problems with Anesthesia: No NPO: Yes ASA Class: III Final Preanesthetic Review: No Changes in Pt Med Stat, Meds/Allgs Chart Reviewed, Consent Obtained/Reviewed and Anes Risks/Benef Reviewed Patient Risk: Intermediate Procedure Risk: Low Anesthetic Plan Anesthetic Plan: GA and Agree w/ Assess. and Plan Disposition: Standard PACU
[2024-01-21] VITALS (7 sets, daily range): BP systolic 112–141; BP diastolic 64–84; PULSE 39–59; RESP 16–18; TEMP 36.2–36.4; O2SAT 93–98; BMI 42.3
[2024-01-21] MEDS: Lactated Ringers 1,000 ML 50 ML IVCONT (12:47)
--- NOTE | 2024-01-21 13:28 | MHC.SHP ---
Pre-Procedural Eval Section A - 24 Hr Update-Section A only Date of Service: 01/21/24 The patient is an INPATIENT: No Changes since office visit: No Cold of Flu in the past 2 weeks, No New Medical Problems, No Changes in Medication and No Patient answered all questions The patient has been examined within 24 hours of the surgical procedure. The History & Physical has been completed within 30 days and I have reviewed it.: Yes Section B - Complete if H&P > 30 days Chief Complaint: Polyp of corpus uteri Allergies: Allergies Allergy/AdvReac Type Severity Reaction Status Date / Time lisinopril [LISINOPRIL] Allergy Unknown COUGH Verified 01/21/24 12:29 metoprolol [METOPROLOL] Allergy Unknown ANKLE Verified 01/21/24 12:29 SWELLING, swelling Plan Diagnosis/Plan: Unchanged I have reviewed the history and physical and performed a pertinent physical examination on my patient. No changes have occurred unless specified. Time Spent With Patient Time: Total time managing care of this patient today ____ minutes.
--- NOTE | 2024-01-21 14:19 | PM.OP ---
Brief Operative Note Date of Service: 01/21/24 Pre-op diagnosis: Postmenopausal bleeding Endometrial polyp on EMB pathology Abnormal endometrium by ultrasound Post-op diagnosis: same (Large endometrial polyp) Procedure: Hysteroscopy D&C, Polypectomy Surgeon: Fabian Cummins MD Anesthesia: GLMA Was an Warehouse Shift Supervisor used for this Procedure?: No Estimated blood loss (mL): 0 Pathology: other (Endometrial Scrapping. Polyp) Condition: stable Disposition: PACU
--- NOTE | 2024-01-21 14:19 | W.PM.OPN ---
Operative Note Operative Note Date of Service: 01/21/24 Narrative: Preop Diagnosis: Abnormal uterine bleeding, Endometrial polyp on EMB pathology, abnormal endometrium by ultrasound Operation: Diagnostic Hysteroscopy, Dilataion & Curettage and polypectomy Post Op Diagnosis: Large Endometrial Polyp QBL: Minimal Anesthesia: GLMA Surgeon: Fabian Cummins MD Senior Java Architect: None Complication: None Pathology: Endometrial Scrapings, Endometrial polyp Procedure: The patient was put in the dorsal lithotomy position, scrubbed, and draped in the usual manner. A sterile speculum was inserted in the patient's vagina. The anterior lip of the cervix was grasped with a single tooth tenaculum. The cervix was dilated up to 5 mm, then the scope was inserted in the patient's uterus. Inspection revealed a large endometrial polyp. The Myosure Reach device was used; it was introduced through the operative channel and polypectomy done with no complications. The scope was then taken out from the uterine cavity, sharp curettings was carried on with minimal to moderate amount of tissues retrieved. At the end of the procedure, all instruments were taken out of the patient uterine and vaginal cavity. The single tooth tenaculum was removed and homeostasis was assured using pressure,. The patient tolerated the procedure well and was transferred to the PACU in a stable condition.
== END 2024-01-21 15:30 | disposition home or self-care (01) ==
PROVIDERS: PCP Internal Medicine; Visit Provider Obstetrics & Gynecology
PROC: 0UDB8ZZ Extraction of Endometrium, Via Natural or Artificial Opening Endoscopic (ICD-10-PCS; CPT 58558; principal; 2024-01-21 13:40)
DX: N95.0 Postmenopausal bleeding (principal); N84.0 Polyp of corpus uteri; I11.9 Hypertensive heart disease without heart failure; E55.9 Vitamin D deficiency, unspecified; E78.1 Pure hyperglyceridemia; C50.911 Malignant neoplasm of unspecified site of right female breast; G47.33 Obstructive sleep apnea (adult) (pediatric); E66.01 Morbid (severe) obesity due to excess calories; Z68.41 Body mass index [BMI] 40.0-44.9, adult; Z99.89 Dependence on other enabling machines and devices; Z88.8 Allergy status to other drugs, medicaments and biological substances
CPT/HCPCS: 58558; 88305; J1885; J2405; J2704; J3010

== ENCOUNTER → 2024-01-21 11:25 | Outpatient (BNV) | payer OTHER, SELFPAY | PROVIDERS: PCP Internal Medicine; Visit Provider Obstetrics & Gynecology | DX: N84.0 Polyp of corpus uteri (principal); N93.9 Abnormal uterine and vaginal bleeding, unspecified | CPT/HCPCS: 58558 ==

== ENCOUNTER 2024-02-08 15:29 | Outpatient (AMB) | payer OTHER, SELFPAY ==
--- NOTE | 2024-02-08 15:40 | MHC.OFFVIS ---
Intake Visit Reasons: post op Allergies lisinopril [LISINOPRIL] Allergy (Unknown, Verified 01/21/24 12:29) COUGH metoprolol [METOPROLOL] Allergy (Unknown, Verified 01/21/24 12:29) ANKLE SWELLING, swelling HPI Comments Details: The patient is presenting post hysteroscopy D&C no complaints minimal vaginal bleeding no feverishness chills or abdominal pain. The pathology showed the following: A. Endometrium, polypectomy: Fragments of endometrial polyp; no atypia identified. B. Endometrium, curettage: - Fragments of endometrial polyp. - Background superficial fragments of inactive endometrium. - No atypia identified [facility] Medical History Atrial aneurysm Hypertensive cardiomegaly Uncontrolled hypertension REGIS on CPAP Breast cancer Morbid obesity Vitamin D deficiency Menopause Tubular adenoma of colon Infiltrating ductal carcinoma of right breast Hypertriglyceridemia Essential hypertension Surgical History Hx of cataract extraction History of colonoscopy History of lumpectomy of right breast Family History Father Unknown family medical history Cancer Pneumonia due to COVID-19 virus Mother Depression Mental health disorder Lung cancer Smoker Brother No problems noted. Brother No problems noted. Son No problems noted. Son No problems noted. Daughter No problems noted. Daughter No problems noted. 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 Discussed with the patient the sensitivity, specificity, positive and negative predictive value, of endometrial biopsy in detecting endometrial pathology including but not limited to endometrial hyperplasia, cancer and other pathology; instructed the patient to call in case vaginal bleeding bleeding recurs, the next step will be to proceed with further endometrial sampling evaluation to rule out endometrial pathology. All questions answered and the patient verbalized understanding and agreed with the plan. Coding Level of Care Code Est Pt Level 3 (07528) Diagnoses Endometrial polyp N84.0
== END 2024-02-08 18:50 ==
PROVIDERS: PCP Internal Medicine; Visit Provider Obstetrics & Gynecology
DX: N84.0 Polyp of corpus uteri (principal)
CPT/HCPCS: 99213

== ENCOUNTER → 2024-02-08 15:29 | Outpatient (BNVA) | payer OTHER, SELFPAY | PROVIDERS: PCP Internal Medicine; Visit Provider Obstetrics & Gynecology | DX: N84.0 Polyp of corpus uteri (principal); Z98.890 Other specified postprocedural states | CPT/HCPCS: 99212 ==

== ENCOUNTER 2024-03-13 12:51 | Outpatient (REF) | payer OTHER, SELFPAY ==
--- NOTE | ~2024-03-13 | MM_ITS ---
EXAMINATION: MM SCREENING DIGITAL BREAST TOMOSYNTHESIS, BILATERAL CLINICAL INFORMATION: Screening. Asymptomatic. The patient is status post treatment for right upper outer quadrant breast cancer. COMPARISON: Mammography: This study is compared with prior exams dating back to 2019. TECHNIQUE: Digital breast tomosynthesis is performed in both the craniocaudal and mediolateral oblique views along with computer-aided detection (CAD). Synthesized 2D images are generated from the tomosynthesis. FINDINGS: There are scattered areas of fibroglandular density (ACR BI-RADS breast composition Category b). There are no significant masses, abnormal calcifications, or other abnormalities. There are post surgical changes in the upper outer quadrant of the right breast. There are bilateral, benign, right greater than left, coarse calcifications. MM/MM tomosynthesis screening BI IMPRESSION: No mammographic evidence of malignancy. ASSESSMENT: BI-RADS BI-RADS 2 - Benign Findings RECOMMENDATION: Routine annual mammography screening. 1 year F/U This examination should not preclude the clinical evaluation of a suspicious palpable abnormality. This patient's information was entered into a reminder system with a target due date for their next mammogram.
== END 2024-03-13 12:52 | disposition home or self-care (01) ==
LOC: HO.MAMMO 12:51
PROVIDERS: PCP Internal Medicine; Visit Provider Internal Medicine
DX: Z12.31 Encounter for screening mammogram for malignant neoplasm of breast (principal)
CPT/HCPCS: 77063; 77067

== ENCOUNTER → 2024-03-13 13:00 | Outpatient (BNV) | payer OTHER, SELFPAY | PROVIDERS: PCP Internal Medicine; Visit Provider Radiology Diagnostic Radiology | DX: Z12.31 Encounter for screening mammogram for malignant neoplasm of breast (principal) | CPT/HCPCS: 77063; 77067 ==

== ENCOUNTER 2024-05-31 08:40 | Outpatient (AMB) | payer OTHER, SELFPAY ==
[2024-05-31 09:06] VITALS: BP 130/80; PULSE 53; O2SAT 97; BMI 40.6
--- NOTE | 2024-05-31 09:06 | A.OFFPC_ITS ---
Vital Signs 05/31/24 09:06 Height 5 ft 3 in Weight 229 lb BMI 40.6 BP 130/80 Blood Pressure Location Rt brachial Position Sitting Pulse 53 Pulse Source Pulse Oximeter Pulse Oximetry (%) 97 Oxygen Delivery Method Room Air Intake Visit Reasons: Annual PE Intake Note: Pt is here today for her PE: Mammogram 03/13/24, papsmear 05/05/22, colonoscopy 02/20/20 Allergies lisinopril [LISINOPRIL] Allergy (Unknown, Verified 05/31/24 09:28) COUGH metoprolol [METOPROLOL] Allergy (Unknown, Verified 05/31/24 09:28) ANKLE SWELLING, swelling Medication List - Last Reconciled 05/31/24 by Carline Kruse MD amlodipine 5 mg PO DAILY carvedilol 25 mg PO BID cholecalciferol (vitamin D3) 50 mcg PO DAILY losartan-hydrochlorothiazide 100-12.5 mg 1 tab PO DAILY magnesium 200 mg PO DAILY vitamin K2 100 mcg PO DAILY Tobacco use date assessed: 05/31/24 Dental Screening Dental Screen Date: 05/31/24 Did you have a dental visit in the last 12 months?: No Did you have a dental problem in the last 6 months where you did not have access to dental care?: No Was dental information given to patient?: Patient declined HPI Annual PE HPI Details 58-year-old lady with history of infiltr ating ductal carcinoma of right breast status post chemotherapy, previously on tamoxifen and completed letrozole , with morbid obesity, hypertriglyceridemia and hypertension, here today for physical exam. She had her Mammogram 03/13/24, papsmear 05/05/22, colonoscopy 02/20/20 with history of adenomatous polyps in the past, due again for repeat colonoscopy in 2024. She has had juanjose both eyes done by Dr. Baron. Has been feeling well with no complaints at present time, up-to-date with her vaccines, and will be getting her flu and COVID booster later on this month. Has obstructive sleep apnea compliant with her CPAP. [facility] Medical History (Updated 05/31/24 @ 09:59 by Carline Kruse MD) History of infiltrating ductal carcinoma of breast Endometrial polyp Atrial aneurysm Hypertensive cardiomegaly Uncontrolled hypertension REGIS on CPAP Breast cancer Morbid obesity Vitamin D deficiency Menopause Tubular adenoma of colon Infiltrating ductal carcinoma of right breast Hypertriglyceridemia Essential hypertension Surgical History Hx of cataract extraction History of colonoscopy History of lumpectomy of right breast Family History Father Unknown family medical history Cancer Pneumonia due to COVID-19 virus Mother Depression Mental health disorder Lung cancer Smoker Brother No problems noted. Brother No problems noted. Son No problems noted. Son No problems noted. Daughter No problems noted. Daughter No problems noted. 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 1. Little interest or pleasure in doing things: not at all 2. Feeling down, depressed, or hopeless: not at all 3. Trouble falling or staying asleep, or sleeping too much: not at all 4. Feeling tired or having little energy: not at all 5. Poor appetite or overeating: not at all 6. Feeling bad about yourself - or that you are a failure or have let yourself or your family down: not at all 7. Trouble concentrating on things, such as reading the newspaper or watching television: not at all 8. Moving or speaking so slowly that other people could have noticed. Or the opposite - being so fidgety or restless that you have been moving around a lot more than usual: not at all 9. Thoughts that you would be better off or of hurting yourself in some way: not at all Total score: 0 Depression Screening Interpretation: Negative Depression Screening Done: Yes 43212 - PHQ-9 Billing: Yes Source: Developed by Arely Howard.W. Jarek, Ernesto Arrieta and colleagues, with an educational isac from [employer]. Thrive Questionnaire Date Thrive assessed: 05/31/24 I am a: Patient What is your living situation today?: I have a steady place to live Within the past 12 months, did the food you bought not last and you didn't have the money to get more?: Never true Within the past 12 months, did you worry whether your food would run out before you got money to buy more?: Never true Do you have trouble paying for medicines?: No Do you have trouble getting transportation to medical appointments?: No Do you have trouble paying your heating and electricity bill?: No Do you have trouble taking care of your child, family member or friend?: No Do you have trouble with day-to-day activities such as bathing, preparing meals, shopping, managing finances, etc.?: No Are you interested in more education?: No Please select the resources that you would like help with: None Currently or been in a relationship where the following occur: No concerns reported THRIVE Score: 0 AUDIT C Alcohol Use Questionnaire (AUDIT-C) 1. How often do you have a drink containing alcohol?: Never 2. How many drinks containing alcohol do you have on a typical day when you are drinking?: 1 or 2 3. How often do you have six or more drinks on one occasion?: Never Total Score: 0 ALFREDO-7 AMB Questionnaire ALFREDO-7 Date ALFREDO - 7 assessed: 05/31/24 Feeling nervous, anxious, or on edge: 0 = Not at all Not being able to stop or control worryin = Not at all Worrying too much about different things: 0 = Not at all Trouble relaxin = Not at all Being so restless that it is hard to sit still: 0 = Not at all Becoming easily annoyed or irritable: 0 = Not at all Feeling afraid as if something awful might happen: 0 = Not at all Total ALFREDO-7 score (0-4 normal; 5-9 mild; 10-14 moderate; 15-21 severe): 0 Source: Developed by Drs. Delano Coronel, Arely Tilley, Ernesto Arrieta and colleagues, with an educational isac from [employer]. ALFREDO-7 Assessment Billing ALFREDO-7 Assessment Tool: ALFREDO-7 Assessment 05013 Review of Systems Const Denies chills, Denies difficulty sleeping, Denies fatigue, Denies fever(s), Denies frequent falls, Denies weakness and Reports weight loss Eyes Details: Sees Dr. Baron Reports no additional complaints ENT Details: Overdue for her regular dental prophylaxis Reports Normal hearing present and Denies dizziness Card Denies chest pain, Denies leg edema, Denies lightheadedness, Denies palpitations, Denies dyspnea, Denies dyspnea on exertion, Denies orthopnea and Denies other (loss of consciousness) Resp Denies cough, Denies dyspnea and Denies dyspnea on exertion GI Denies hematochezia and Denies change in stool character Details: Followed by Dr. Cummins for her routine Pap and pelvic exam Reports no additional complaints Musc Denies abnormal gait, Denies muscle weakness, Denies numbness, Denies radiating pain into limb and Denies tingling Skin/Breast Denies breast swelling, Denies breast pain, Denies breast mass and Denies rash Neuro Reports Normal hearing present, Denies abnormal gait, Denies dizziness, Denies frequent falls, Denies numbness, Denies tingling and Denies weakness Psych Reports no additional complaints Endo Denies fatigue and Denies palpitations Tobias/Lymph Reports no additional complaints Aller/Immun Reports no additional complaints Physical exam (Primary Care) Vital Signs: Last Vital Signs Pulse 53 05/31/24 09:06 BP 130/80 05/31/24 09:06 Pulse Ox 97 05/31/24 09:06 Oxygen Delivery Method Room Air 05/31/24 09:06 BMI result Body Mass Index 40.6 BMI Assessment/Plan discussion: High BMI High, discussed plan: lifestyle, weight reduction, dietary and physical activity Tobacco/Smoking Status: Tobacco use Status Tobacco use date assessed 05/31/24 05/31/24 09:08 Patient Tobacco Use Status Never used Tobacco 05/31/24 09:08 e-Cigarette/Vaping Use Never Used 05/31/24 09:08 PHQ-9: PHQ-9 Score PHQ-9: Total score 0 05/31/24 09:30 Depression Screening Interpretation: Negative Thrive Assessment: Date of Thrive Assessment Date Thrive assessed 05/31/24 05/31/24 09:14 Currently or been in a relationship where the following occur: No concerns reported Const General: cooperative and no acute distress Nutritional Appearance: obese morbidly obese Orientation/consciousness: patient oriented x3 HENMT Head: Yes normocephalic Ears: external ears normal, TM's normal bilaterally and EAC's normal General nose exam: Normal external nose present and No nasal discharge present Face and sinus: Yes face symmetric Mouth: Normal oral and palatal mucosa present, oropharynx normal and moist mucous membranes Neck Neck: Yes full ROM and Yes no lymphadenopathy Thyroid: Thyroid normal Carotids: normal carotid upstroke Resp Effort & Inspection: normal respiratory effort and able to speak in complete sentences Auscultation: clear to auscultation bilaterally Cardio Jugular venous distension: no JVD Rate: regular rate Rhythm: regular rhythm Heart sounds: S1 normal heart sound present and S2 normal heart sound present GI Inspection: Yes normal to inspection Palpation (GI): Soft to palpation Auscultation: normal bowel sounds General: Yes no CVA tenderness and Yes deferred (Sees Dr. Cummins) Back/Spine/Pelvis Back: no CVA tenderness Skin General skin exam: no rashes or lesions noted Rashes: no rashes Neuro General: patient oriented x3, gait normal, moves all extremities, no focal motor deficits and CN's II-XI intact bilaterally Cranial nerves: Yes Normal hearing present Cognition (Neuro): normal cognition Gait exam (Neuro): Normal gait present Motor exam (neuro): 5/5 motor strength present throughout Extrem General: Yes normal to inspection, Yes full ROM, Yes no pedal edema and Yes normal gait Psych Appearance: grossly normal and well kempt Mental Status: mental status grossly normal Speech and movement: Normal speech and movement present Affect: normal affect Attitude: cooperative Thought process: Normal thought process present Thought content: Normal thought content present Assessment and Plan Assessment & Plan (1) Annual visit for general adult medical examination with abnormal findings: Code(s): Z00.01 - Encounter for general adult medical examination with abnormal findings Plan: Will check appropriate labs. Recommended dental visit every 6 months and continue regular eye exams, at least every 2 years. Take adequate calcium in diet and vitamin-D 3 at 2000 IU per cap once a day, in addition to weight- bearing exercises to help maintain good muscle tone and weight control. Instructed to do self-breast exam, and recommended to get yearly mammogram, currently up-to-date. Sees Dr. Cummins for her routine Pap and pelvic exam up-to-date with her vaccines, applying to get her COVID booster and flu shot soon. Colonoscopy was done in [address] Shields with hyperplastic polyp removed, but has history of adenomatous polyp, will order repeat colonoscopy in 2024 (2) Essential hypertension: Code(s): I10 - Essential (primary) hypertension Plan: Blood pressure at goal of less than 130/80. Continue carvedilol 25 mg 1 tablet twice a day and amlodipine 5 mg daily as well as losartan HCTZ 100-12.5 mg 1 tablet in a.m... Reinforced importance of following a low sodium diet, getting regular exercise, and lowering stress levels. (3) Hypertriglyceridemia: Code(s): E78.1 - Pure hyperglyceridemia Plan: Fasting lipids ordered today. Reinforced importance of following a low-c holesterol diet getting regular exercise (4) REGIS on CPAP: Code(s): G47.33 - Obstructive sleep apnea (adult) (pediatric); Z99.89 - Dependence on o ther enabling machines and devices Plan: Continued on CPAP, continued weight loss recommend (5) History of infiltrating ductal carcinoma of breast: Code(s): Z85.3 - Personal history of malignant neoplasm of breast Plan: Currently off letrozole, followed yearly by Oncology, up-to-date with her mammogram (6) Diastolic dysfunction: Code(s): I51.89 - Other ill-defined heart diseases Plan: Reinforced good control blood pressure, lipids. Continue on current medication (7) Morbid obesity: Code(s): E66.01 - Morbid (severe) obesity due to excess calories Plan: Recommended focusing on improving health instead of dieting. Mediterranean diet is a healthy diet that helps, limit food high in fat, sugar, and calories. Eat slowly, pay attention to portion sizes, plan your meals ahead of time, start regular physical activity, at least 150 minutes of moderate intensity exercise, or 90 minutes per week of vigorous exercise. Keeping a food diary, tracking what you eat and your physical activity can help assess what improvements you can make. There are many health problems associated with being overweight/obese, so it is important to improve your diet and exercise. There are medications and surgical options available, but Lifestyle changes are the 1st step. Orders: Orders Vitamin D 25-OH Total Today E55.9 - Vitamin D deficiency, unspecified, E66.01 - Morbid (severe) obesity due to excess calories, E78.1 - Pure hyperglyceridemia, Z78.0 - Asymptomatic menopausal state, Z86.000 - Personal history of in-situ neoplasm of breast Lipid Panel Today E55.9 - Vitamin D deficiency, unspecified, E66.01 - Morbid (severe) obesity due to excess calories, E78.1 - Pure hyperglyceridemia, Z78.0 - Asymptomatic menopausal state, Z86.000 - Personal history of in-situ neoplasm of breast Coding Level of Care Code Est Pt Prev Care 40-64y(93962) Diagnoses Annual visit for general adult medical examination with abnormal findings Z00.01 Essential hypertension I10 Hypertriglyceridemia E78.1 REGIS on CPAP G47.33; Z99.89 History of infiltrating ductal carcinoma of breast Z85.3 Diastolic dysfunction I51.89 Morbid obesity E66.01 Additional Codes ALFREDO-7 Assessment Billing - ALFREDO-7 Assessment Tool: ALFREDO-7 Assessment 30109 ([id number])
== END 2024-05-31 09:49 | disposition home or self-care (01) ==
PROVIDERS: PCP Internal Medicine; Visit Provider Internal Medicine
DX: Z00.00 Encounter for general adult medical examination without abnormal findings (principal); I10 Essential (primary) hypertension; E66.01 Morbid (severe) obesity due to excess calories; Z68.41 Body mass index [BMI] 40.0-44.9, adult; E78.1 Pure hyperglyceridemia; G47.33 Obstructive sleep apnea (adult) (pediatric); Z99.89 Dependence on other enabling machines and devices; Z85.3 Personal history of malignant neoplasm of breast; I51.89 Other ill-defined heart diseases

== ENCOUNTER → 2024-05-31 08:40 | Outpatient (BNVA) | payer OTHER, SELFPAY | PROVIDERS: PCP Internal Medicine; Visit Provider Internal Medicine | DX: Z00.01 Encounter for general adult medical examination with abnormal findings (principal); I10 Essential (primary) hypertension; E78.1 Pure hyperglyceridemia; G47.33 Obstructive sleep apnea (adult) (pediatric); E66.01 Morbid (severe) obesity due to excess calories; Z68.41 Body mass index [BMI] 40.0-44.9, adult; I51.89 Other ill-defined heart diseases; Z85.3 Personal history of malignant neoplasm of breast; Z99.89 Dependence on other enabling machines and devices; Z71.3 Dietary counseling and surveillance | CPT/HCPCS: 96127; 99396 ==

== ENCOUNTER 2024-05-31 09:50 | Outpatient (REF) | payer OTHER, SELFPAY ==
[2024-05-31 14:12] LABS: Cholesterol 191 mg/dL (<200); HDL Cholesterol 43 mg/dL (>40); LDL Cholesterol Calculated 119 mg/dL (<100); Triglycerides 149 mg/dL (<150)
[2024-05-31 14:33] LABS: Vitamin D 25-OH Total 85.1 ng/mL (>30)
== END 2024-05-31 09:51 | disposition home or self-care (01) ==
LOC: HO.HMGCLDS 09:50
PROVIDERS: PCP Internal Medicine; Visit Provider Internal Medicine
DX: E55.9 Vitamin D deficiency, unspecified (principal); Z78.0 Asymptomatic menopausal state; E78.1 Pure hyperglyceridemia; E66.01 Morbid (severe) obesity due to excess calories; Z86.000 Personal history of in-situ neoplasm of breast
CPT/HCPCS: 36415; 80061; 82306

== ENCOUNTER 2024-11-08 14:05 | Outpatient (AMB) | payer OTHER, SELFPAY ==
--- NOTE | 2024-11-08 14:06 | A.OFFVIS_ITS ---
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 No complaints. Last Pap/HPV was negative in 04/27 Last Mammogram was BI-RADS 2 in 03/29 Last Colonoscopy was done in 02/23, the recommendation was to repeat in 5 years [facility] Medical History History of infiltrating ductal carcinoma of breast Endometrial polyp Atrial aneurysm Hypertensive cardiomegaly Uncontrolled hypertension REGIS on CPAP Breast cancer Morbid obesity Vitamin D deficiency Menopause Tubular adenoma of colon Infiltrating ductal carcinoma of right breast Hypertriglyceridemia Essential hypertension Surgical History Hx of cataract extraction History of colonoscopy History of lumpectomy of right breast Family History Father Unknown family medical history Cancer Pneumonia due to COVID-19 virus Mother Depression Mental health disorder Lung cancer Smoker Brother No problems noted. Brother No problems noted. Son No problems noted. Son No problems noted. Daughter No problems noted. Daughter No problems noted. 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 Cognitive needs: No Hearing needs: No Vision needs: No Female Reproductive History Menstrual Date of last pap smear: 05/05/22 Date of Mammogram: 03/13/24 Review of Systems Const All systems reviewed & are unremarkable except as noted in HPI and below Card Reports as per HPI Resp Reports as per HPI GI Reports as per HPI and Reports no additional complaints Reports as per HPI Physical Exam Vital Signs: Last Vital Signs BP 120/88 11/08/24 14:07 BMI result Body Mass Index 40.7 Const General: cooperative, healthy appearing and comfortable Chest Chest palpation & inspection: normal inspection of the chest and normal palpation of entire chest wall Breast/axilla inspection: normal inspection of the breasts and normal inspection of the axillae Breast/axilla palpation: normal palpation of the breasts, normal palpation of the axillae and no axillary lymphadenopathy Resp Effort & Inspection: normal respiratory effort Auscultation: clear to auscultation bilaterally Percussion: percussion normal Cardio Palpation: normal PMI Rate: regular rate Rhythm: regular rhythm Heart sounds: no murmurs and no rubs Peripheral pulses: Peripheral pulses 2+ throughout GI Inspection: Yes normal to inspection Palpation (GI): Soft to palpation, nontender, no guarding, not rigid and No hepatosplenomegaly present Percussion: Yes normal to percussion Auscultation: normal bowel sounds Rectal Exam - Female: deferred General: Yes bladder normal to palpation External Female Exam: No lesion Speculum Exam - Vagina: normal appearance of the vagina, normal palpation, normal vaginal discharge and not erythematous Speculum Exam - Cervix: normal appearance of the cervix and normal palpation Bimanual exam- vagina & uterus: normal bimanual exam, normal palpation, uterine size normal, bladder normal to palpation, consistency normal and normal pal pation Bimanual Exam- Adnexa, other: normal adnexae, no masses and no tenderness Assessment & Plan Assessment & Plan (1) Well woman exam: Code(s): Z01.419 - Encounter for gynecological examination (general) (routine) without abnormal findings Category: Medical Plan: Co testing not indicated this year. Counseled the patient about the recommended dietary allowance of 1200 mg of Calcium & 600 IU of vitamin D. Instructions given to patient to schedule next screening Mammogram in 03/30. The patient was referred to GI for screening colonoscopy . The patient was instructed to perform monthly self-breast exams and schedule annual exam in a year. All questions answered and the patient verbalized understanding. (2) Uterine myoma: Code(s): D25.9 - Leiomyoma of uterus, unspecified Category: Medical Plan: Pelvic ultrasound ordered, instructions given the patient is schedule ultrasound and a follow-up appointment afterwards within 2 weeks. All questions answered, the patient verbalized understanding Orders: Referrals Gastroenterology Referral Z12.11 - Encounter for screening for malignant neoplasm of colon Coding Level of Care Code Est Pt Prev Care 40-64y(50896) Diagnoses Well woman exam Z01.419 Uterine myoma D25.9
[2024-11-08 14:07] VITALS: BP 120/88; BMI 40.7
== END 2024-11-08 14:47 | disposition home or self-care (01) ==
LOC: HO.HWS 14:05
PROVIDERS: PCP Internal Medicine; Visit Provider Obstetrics & Gynecology
DX: Z01.419 Encounter for gynecological examination (general) (routine) without abnormal findings (principal); D25.9 Leiomyoma of uterus, unspecified
CPT/HCPCS: 99396; 99459

== ENCOUNTER → 2024-11-08 14:05 | Outpatient (BNVA) | payer OTHER, SELFPAY | PROVIDERS: PCP Internal Medicine; Visit Provider Obstetrics & Gynecology | DX: Z01.419 Encounter for gynecological examination (general) (routine) without abnormal findings (principal); D25.9 Leiomyoma of uterus, unspecified | CPT/HCPCS: 99396; 99459 ==

== ENCOUNTER 2024-12-01 15:02 | Outpatient (REF) | payer OTHER, SELFPAY ==
--- NOTE | ~2024-12-01 | US_ITS ---
CLINICAL HISTORY: D25.9 - Leiomyoma of uterus, unspecified US pelvis transabdominal and transvaginal Comparison: 10/12/2023 Findings: Transabdominal scanning performed for overall anatomy. Transvaginal scanning performed for additional detail. Anteverted uterus is 9.4 cm length. Normal myometrium. Endometrium 9.0 mm thickness. No lesions. Are 2 subserosal and myometrial leiomyomata measuring 1.2 x 1.2 x 1.2 cm and 1.2 x 1.2 x 1.0 cm. Right ovary 1.6 x 1.1 x 0.8 cm. Left ovary notvisualized. Normal color Doppler of right ovaries. No free fluid. IMPRESSION: 1. Uterine leiomyomata This document has been electronically signed by: Bobby Degroot MD on 12/02/2024 08:55:10
== END 2024-12-01 15:03 | disposition home or self-care (01) ==
LOC: HO.US 15:02
PROVIDERS: PCP Internal Medicine; Visit Provider Obstetrics & Gynecology
DX: D25.9 Leiomyoma of uterus, unspecified (principal)
CPT/HCPCS: 76830; 76856

== ENCOUNTER → 2024-12-01 15:04 | Outpatient (BNV) | payer OTHER, SELFPAY | PROVIDERS: PCP Internal Medicine; Visit Provider Specialist | DX: D25.9 Leiomyoma of uterus, unspecified (principal) | CPT/HCPCS: 76830; 76856 ==

== ENCOUNTER 2024-12-14 14:20 | Outpatient (AMB) | payer OTHER, SELFPAY ==
--- NOTE | 2024-12-14 14:37 | MHC.OFFVIS ---
Intake Visit Reasons: u/s results Accompanied by: Self / Same As Patient Allergies lisinopril [LISINOPRIL] Allergy (Unknown, Verified 12/14/24 14:38) COUGH metoprolol [METOPROLOL] Allergy (Unknown, Verified 12/14/24 14:38) ANKLE SWELLING, swelling HPI Comments Details: Presenting with a the ultrasound follow-up with no complaints, no pelvic pressure or pain or vaginal bleeding. Pelvic ultrasound done on 12/02/2024 showed the following: Transabdominal scanning performed for overall anatomy. Transvaginal scanning performed for additional detail. Anteverted uterus is 9.4 cm length. Normal myometrium. Endometrium 9.0 mm thickness. No lesions. Are 2 subserosal and myometrial leiomyomata measuring 1.2 x 1.2 x 1.2 cm and 1.2 x 1.2 x 1.0 cm. Right ovary 1.6 x 1.1 x 0.8 cm. Left ovary notvisualized. Normal color Doppler of right ovaries. Last pelvic ultrasound on 10/12/2023 showed 1 myoma measuring 1.9 x 1.8 x 1.3 cm, endometrium was abnormal cystic measuring 22 mm, the patient underwent hysteroscopy D&C polypectomy, the pathology was the following: A. Endometrium, polypectomy: Fragments of endometrial polyp; no atypia identified. B. Endometrium, curettage: - Fragments of endometrial polyp. - Background superficial fragments of inactive endometrium. - No atypia identified Last co testing in 04/27 was negative PFSH Medical History History of infiltrating ductal carcinoma of breast Endometrial polyp Atrial aneurysm Hypertensive cardiomegaly Uncontrolled hypertension REGIS on CPAP Breast cancer Morbid obesity Vitamin D deficiency Menopause Tubular adenoma of colon Infiltrating ductal carcinoma of right breast Hypertriglyceridemia Essential hypertension Surgical History Hx of cataract extraction History of colonoscopy History of lumpectomy of right breast Family History Father Unknown family medical history Cancer Pneumonia due to COVID-19 virus Mother Depression Mental health disorder Lung cancer Smoker Brother No problems noted. Brother No problems noted. Son No problems noted. Son No problems noted. Daughter No problems noted. Daughter No problems noted. 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 Cognitive needs: No Hearing needs: No Vision needs: No Review of Systems Const All systems reviewed & are unremarkable except as noted in HPI and below Reports as per HPI and Reports no additional complaints GI Reports no additional complaints Reports no additional complaints Assessment & Plan Assessment & Plan (1) Uterine myoma: Code(s): D25.9 - Leiomyoma of uterus, unspecified Category: Medical Plan: Discussed with the patient the findings on pelvic ultrasound & the risk of myosarcoma; in addition reviewed with the patient that malignancy and pre malignancy cannot be ruled out without hysterectomy for pathological evaluation ; furthermore, explained to the patient the limitation of pelvic ultrasound and endometrial biopsy in the setting. Discussed with the patient the options of treatment including expectant management versus hysterectomy; the pros and cons, risks benefits of each approach were discussed with the patient including the fact that in cases of myosarcoma, surgical treatment can lead to early diagnosis and positively affects the prognosis; after further discussion, the patient decided to proceed with expectant management. Will repeat pelvic ultrasound periodically. Instructions given to patient to call in case any of the following occurs: pressure symptoms, abnormal uterine bleeding, pelvic pain; and to schedule a 12 months pelvic ultrasound (order placed) and a follow-up appointment . All questions answered, the patient verbalized understanding and agreed with the plan . (2) Endometrial thickening on ultrasound: Code(s): R93.89 - Abnormal findings on diagnostic imaging of other specified body structures Category: Medical Plan: Discussed with the patient endometrial thickness above 4 mm in menopause , the differential diagnosis of a thickened endometrium includes but not limited to endometrial polyp, hyperplasia or carcinoma. Explained to the patient that endometrial each thickness is less predictive of endometrial neoplasia in asymptomatic patients, i.e. those without postmenopausal uterine bleeding. The sensitivity and specificity for detecting endometrial carcinoma at an endometrial thickness of >= 5mm was 83 and 72 percent, respectively; this is lower than in patients with bleeding. Studies have shown that postmenopausal patients without uterine bleeding who had an endometrial thickness >11 mm had an endometrial carcinoma risk of 6.7 percent; this risk is similar to postmenopausal patients with bleeding and an endometrial thickness >5 mm. Recommended endometrial sampling to rule endometrial pathology via either office endometrial biopsy or diagnostic hysteroscopy/D&C with possible polypectomy/myomectomy. All pros and cons, risks and benefits of each approach were discussed with the patient, the patient decided to proceed with endometrial biopsy. EMB done, see procedure note , instructions given the patient to schedule a 2 week follow-up. All questions answered, the patient verbalized Orders: Orders US pelvic and transvaginal Today D25.9 - Leiomyoma of uterus, unspecified AMB Endometrial Biopsy Today R93.89 - Abnormal findings on diagnostic imaging of other specified body structures Coding Level of Care Code Est Pt Level 3 (40567) Procedure Only Diagnoses Uterine myoma D25.9 Endometrial thickening on ultrasound R93.89
== END 2024-12-14 16:30 | disposition home or self-care (01) ==
LOC: HO.HWS 14:21
PROVIDERS: PCP Internal Medicine; Visit Provider Obstetrics & Gynecology
DX: D25.9 Leiomyoma of uterus, unspecified (principal); R93.89 Abnormal findings on diagnostic imaging of other specified body structures
CPT/HCPCS: 99213

== ENCOUNTER 2024-12-14 14:20 | Outpatient (REF) | payer OTHER, SELFPAY | END 2024-12-14 14:21 | disposition home or self-care (01) | LOC: HO.LNP 14:20 | PROVIDERS: PCP Internal Medicine; Visit Provider Obstetrics & Gynecology | DX: D25.9 Leiomyoma of uterus, unspecified (principal); R93.89 Abnormal findings on diagnostic imaging of other specified body structures | CPT/HCPCS: 88305; 99212 ==

== ENCOUNTER 2024-12-28 13:30 | Outpatient (AMB) | payer OTHER, SELFPAY ==
[2024-12-28 13:32] VITALS: BP 120/80; PULSE 68; BMI 43.0
--- NOTE | 2024-12-28 13:32 | MHC.OFFVIS ---
Vital Signs 12/28/24 13:32 Height 5 ft 3 in Weight 242 lb 8.136 oz BMI 43.0 BP 120/80 Blood Pressure Location Lt brachial Position Sitting Pulse 68 Intake Visit Reasons: 1 yr s/p echo Intake Note: 1 year follow-up with ekg after echo feeling good Research & Analytics Manager Required: No Allergies lisinopril [LISINOPRIL] Allergy (Unknown, Verified 12/14/24 14:38) COUGH metoprolol [METOPROLOL] Allergy (Unknown, Verified 12/14/24 14:38) ANKLE SWELLING, swelling Medication List - Last Reconciled 12/28/24 by Delio Bocanegra MD carvedilol 25 mg PO BID cholecalciferol (vitamin D3) 50 mcg PO DAILY losartan-hydrochlorothiazide 100-12.5 mg 1 tab PO DAILY magnesium 200 mg PO DAILY vitamin K2 100 mcg PO DAILY HPI Comments Details: Nayana comes for follow-up. She has been doing very well. She took herself of amlodipine as it was making her lightheaded during the evening time with low blood pressure. Since that she is feeling better. She has had good blood pressure control when she measures her blood pressure. When she has slightly higher salt diet she notices leg edema otherwise she has no significant leg edema. No orthopnea, PND. No worsening exertional shortness of breath. She has been trying to lose weight. She does not usually exercise on a regular basis but stays very active. Takes her medications. Uses CPAP regularly. [facility] Medical History History of infiltrating ductal carcinoma of breast Endometrial polyp Atrial aneurysm Hypertensive cardiomegaly Uncontrolled hypertension REGIS on CPAP Breast cancer Morbid obesity Vitamin D deficiency Menopause Tubular adenoma of colon Infiltrating ductal carcinoma of right breast Hypertriglyceridemia Essential hypertension Surgical History Hx of cataract extraction History of colonoscopy History of lumpectomy of right breast Family History Father Unknown family medical history Cancer Pneumonia due to COVID-19 virus Mother Depression Mental health disorder Lung cancer Smoker Brother No problems noted. Brother No problems noted. Son No problems noted. Son No problems noted. Daughter No problems noted. Daughter No problems noted. 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 Cognitive needs: No Hearing needs: No Vision needs: No Review of Systems Const Denies chills, Denies fatigue, Denies fever(s), Denies frequent falls, Denies weakness, Denies weight gain and Denies weight loss ENT Denies dizziness Card Denies chest pain, Denies leg edema, Denies lightheadedness, Denies palpitations, Denies dyspnea, Denies dyspnea on exertion, Denies orthopnea and Denies other (loss of consciousness) Resp Denies cough, Denies dyspnea and Denies dyspnea on exertion GI Denies hematochezia and Denies change in stool character Musc Denies abnormal gait, Denies muscle weakness, Denies numbness, Denies radiating pain into limb and Denies tingling Neuro Denies abnormal gait, Denies dizziness, Denies frequent falls, Denies numbness, Denies tingling and Denies weakness Endo Denies fatigue and Denies palpitations Physical Exam Vital Signs: Last Vital Signs Pulse 68 12/28/24 13:32 BP 120/80 12/28/24 13:32 BMI result Body Mass Index 43.0 Const General: cooperative, comfortable, no acute distress, alert, awake and Physically active Nutritional Appearance: obese Orientation/consciousness: patient oriented x3 Limitations: no limitations HEENT Head: Yes normocephalic and Yes atraumatic Neck Neck: Yes trachea midline, Yes supple and Yes no JVD Resp Effort & Inspection: normal respiratory effort Auscultation: clear to auscultation bilaterally Cardio Jugular venous distension: no JVD Palpation: normal PMI Rate: regular rate Rhythm: regular rhythm Heart sounds: S1 normal heart sound present, S2 normal heart sound present, no click, no gallops, no murmurs, no rubs and Other heart sounds present (S4 present) GI Auscultation: normal bowel sounds Skin General skin exam: no rashes or lesions noted Neuro General: patient oriented x3 and no focal motor deficits Extrem General: Yes no clubbing, cyanosis or edema Office Procedures EKG Details: EKG shows normal sinus rhythm with low-voltage QRS with poor R-wave progression most likely due to lead placement and body habitus [id number]-[id number], Complete Assessment & Plan Assessment & Plan (1) Diastolic dysfunction: Code(s): I51.89 - Other ill-defined heart diseases Category: Medical Plan: Grade 2 diastolic dysfunction this middle-aged woman most likely related to hypertension and/or obstructive sleep apnea as well as obesity. Currently blood pressure is well optimized, see below for management. She was no signs or symptoms of heart failure. These were discussed in details with her. Advised to call me with any new symptoms. No additional therapy recommended. Continue CPAP therapy. Encouraged to participate in regular cardiac endurance exercises as well as weight loss program. She understands and agrees. (2) Essential hypertension: Code(s): I10 - Essential (primary) hypertension Category: Medical Plan: Hypertension which is currently well optimized advised to monitor blood pressure at home maintain a log. Goal blood pressure less than 130/84. Continue current therapy which she is tolerating well. Continue CPAP therapy. Low-salt diet was discussed. She understands agrees. Will follow up in the clinic in 1 year's time, sooner p.r.n.. Thank you for allowing me to partake in her care Orders: Orders CA echo transthoracic complete 1 Year I51.89 - Other ill-defined heart diseases Coding Level of Care Code Est Pt Level 4 (41757) Complex EM visit Add On G2211 Diagnoses Diastolic dysfunction I51.89 Essential hypertension I10 CPT Codes EKG - CPT: 81411-[id number], Complete ([id number])
== END 2024-12-28 13:52 | disposition home or self-care (01) ==
LOC: HO.HCS 13:31
PROVIDERS: PCP Internal Medicine; Visit Provider Internal Medicine Cardiovascular Disease
DX: I51.89 Other ill-defined heart diseases (principal); I10 Essential (primary) hypertension
CPT/HCPCS: 93010; 99214; G2211

== ENCOUNTER → 2024-12-28 13:30 | Outpatient (BNVA) | payer OTHER, SELFPAY | PROVIDERS: PCP Internal Medicine; Visit Provider Internal Medicine Cardiovascular Disease | DX: I10 Essential (primary) hypertension (principal); I51.89 Other ill-defined heart diseases; R94.31 Abnormal electrocardiogram [ECG] [EKG] | CPT/HCPCS: 93005; 99212 ==

== ENCOUNTER 2025-02-26 14:41 | Outpatient (AMB) | payer OTHER, SELFPAY ==
--- NOTE | 2025-02-26 14:41 | MHC.OFFVIS ---
Intake Visit Reasons: biopsy results Allergies lisinopril (LISINOPRIL) Allergy (Unknown, Verified 12/14/24 14:38) COUGH metoprolol (METOPROLOL) Allergy (Unknown, Verified 12/14/24 14:38) ANKLE SWELLING, swelling HPI Comments Details: The patient is presenting post endometrial biopsy, no complaints minimal vaginal bleeding no feverishness chills or abdominal pain. The pathology showed the following: Endometrium, biopsy: Superficial strips of benign atrophic endometrium, benign endocervical glandular epithelium, and benign squamous epithelium; no atypia or carcinoma. Comment: The findings do not explain a thickened endometrium [facility] Medical History History of infiltrating ductal carcinoma of breast Endometrial polyp Atrial aneurysm Hypertensive cardiomegaly Uncontrolled hypertension REGIS on CPAP Breast cancer Morbid obesity Vitamin D deficiency Menopause Tubular adenoma of colon Infiltrating ductal carcinoma of right breast Hypertriglyceridemia Essential hypertension Surgical History Hx of cataract extraction History of colonoscopy History of lumpectomy of right breast Family History Father Unknown family medical history Cancer Pneumonia due to COVID-19 virus Mother Depression Mental health disorder Lung cancer Smoker Brother No problems noted. Brother No problems noted. Son No problems noted. Son No problems noted. Daughter No problems noted. Daughter No problems noted. 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 Cognitive needs: No Hearing needs: No Vision needs: No Review of Systems Const All systems reviewed & are unremarkable except as noted in HPI and below Reports as per HPI and Reports no additional complaints GI Reports no additional complaints Reports no additional complaints Telehealth Telehealth Telehealth Platform: Telephone Location of provider rendering services: practice address Location of patient: address on file Patient Identification confirmed using: Name, : Yes Telehealth method: video Patient verbally consented to treatment: Yes Patient verbally consented to billing insurance company: Yes Patient informed of any privacy concerns related to visit: Yes Minutes spent on Phone/Video with Pt.: 2 Assessment & Plan Assessment & Plan (1) Endometrial thickening on ultrasound: Code(s): R93.89 - Abnormal findings on diagnostic imaging of other specified body structures Category: Medical Plan: Discussed with the patient the results of the endometrial biopsy. Discussed with the patient the sensitivity, specificity, positive and negative predictive value, of endometrial biopsy in detecting endometrial pathology including but not limited to endometrial hyperplasia, cancer and other pathology; explained to the patient that endometrial thickening was not explained by the endometrial pathology , options of treatment include expectant management versus hysteroscopy D&C possible polypectomy/myomectomy, the patient decided to proceed with expectant management. instructed the patient to call in case vaginal bleeding occurs, the next step will be to proceed with a diagnostic hysteroscopy/D&C for further endometrial sampling evaluation to rule out endometrial pathology. All questions answered and the patient verbalized understanding and agreed with the plan. I spent a total of 20 minutes reviewing the chart, talking to the patient via video and documenting in the medical record. Coding Level of Care Code Tele Est Pt Level 3 (86762) Diagnoses Endometrial thickening on ultrasound R93.89
== END 2025-02-26 15:35 | disposition home or self-care (01) ==
LOC: HO.HWS 14:41
PROVIDERS: PCP Internal Medicine; Visit Provider Obstetrics & Gynecology
DX: R93.89 Abnormal findings on diagnostic imaging of other specified body structures (principal)
CPT/HCPCS: 99213

== ENCOUNTER 2025-03-19 12:40 | Outpatient (REF) | payer OTHER, SELFPAY | END 2025-03-19 12:41 | disposition home or self-care (01) | LOC: HO.MAMMO 12:40 | PROVIDERS: PCP Internal Medicine; Visit Provider Internal Medicine | DX: Z12.31 Encounter for screening mammogram for malignant neoplasm of breast (principal) | CPT/HCPCS: 77063; 77067 ==

== ENCOUNTER → 2025-03-19 13:00 | Outpatient (BNV) | payer OTHER, SELFPAY | PROVIDERS: PCP Internal Medicine; Visit Provider Internal Medicine | DX: Z12.31 Encounter for screening mammogram for malignant neoplasm of breast (principal) | CPT/HCPCS: 77063; 77067 ==

== ENCOUNTER 2025-03-21 15:16 | Outpatient (AMB) | payer OTHER, SELFPAY ==
--- NOTE | 2025-03-21 15:23 | MHC.OFFVIS ---
Vital Signs 03/21/25 15:26 Height 5 ft 3 in Weight 240 lb BMI 42.5 BP 178/83 H Blood Pressure Location Lt brachial Position Sitting Pulse 86 Pulse Oximetry (%) 96 Oxygen Delivery Method Room Air Intake Visit Reasons: Colonoscopy Screening Intake Note: Patient new consult for 3rd pre colonoscopy screening. Last 2 Colonoscopy was at [facility] with Dr. Shields. Patient denies any GI issues for today. Habitat Management Coordinator Required: No Accompanied by: Self / Same As Patient Allergies lisinopril (LISINOPRIL) Allergy (Unknown, Verified 12/14/24 14:38) COUGH metoprolol (METOPROLOL) Allergy (Unknown, Verified 12/14/24 14:38) ANKLE SWELLING, swelling HPI HPI Colonoscopy Screening: Details: ear old? female with past medical history of ductal carcinoma of the breast, diastolic dysfunction, hypertensive cardiomegaly, REGIS, on CPAP obesity, hyperlipidemia, hypertriglyceridemia, hypertension is here today for pre colonoscopy screening.? Patient was sent to us by her PCP.? Last colonoscopy in February of 2020, hyperplastic polyps. Colonoscopy before tubular adenoma. Patient is on 5 year screening. History of breast CA in 2014.? Patient denies any gastrointestinal symptoms in the past or at present.? Denies any personal or family history of gastrointestinal disease, colon polyps, or CRC.? Denies history of difficulty with sedation or anesthesia in the past.? Denies any history of cardiac, renal, pulmonary, or hepatic disease.?? No history of infectious? diseases like hepatitis A, B, C, HIV or tuberculosis.? Patient is not on any anticoagulation [facility] Medical History History of infiltrating ductal carcinoma of breast Endometrial polyp Atrial aneurysm Hypertensive cardiomegaly Uncontrolled hypertension REGIS on CPAP Breast cancer Morbid obesity Vitamin D deficiency Menopause Tubular adenoma of colon Infiltrating ductal carcinoma of right breast Hypertriglyceridemia Essential hypertension Surgical History Hx of cataract extraction History of colonoscopy History of lumpectomy of right breast Family History Father Unknown family medical history Cancer Pneumonia due to COVID-19 virus Mother Depression Mental health disorder Lung cancer Smoker Brother No problems noted. Brother No problems noted. Son No problems noted. Son No problems noted. Daughter No problems noted. Daughter No problems noted. 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 Cognitive needs: No Hearing needs: No Vision needs: No Review of Systems Const Denies weight gain and Denies weight loss ENT Reports no additional complaints, Denies dysphagia and Denies odynophagia Card Reports no additional complaints Resp Reports no additional complaints GI Denies abdominal pain, Denies belching, Denies melena, Denies bloating, Denies change in bowel habits, Denies dysphagia, Denies excessive flatus, Denies dyspepsia, Denies heartburn, Denies diarrhea, Denies loose stools, Denies nausea, Denies odynophagia and Denies vomiting Musc Reports no additional complaints Neuro Reports no additional complaints Psych Reports no additional complaints Endo Reports no additional complaints Physical Exam Vital Signs: Last Vital Signs Pulse 86 03/21/25 15:26 BP 178/83 H 03/21/25 15:26 Pulse Ox 96 03/21/25 15:26 Oxygen Delivery Method Room Air 03/21/25 15:26 BMI result Body Mass Index 42.5 Const General: healthy appearing, no acute distress and well developed Nutritional Appearance: well nourished Orientation/consciousness: patient oriented x3 Resp Effort & Inspection: normal respiratory effort, able to speak in complete sentences, no tracheal deviation and symmetric chest movement Auscultation: clear to auscultation bilaterally Cardio Rate: regular rate GI Inspection: Yes normal to inspection and No distended Palpation (GI): Soft to palpation, not firm, nontender and No hepatosplenomegaly present Auscultation: normal bowel sounds General: Yes no CVA tenderness Back/Spine/Pelvis Back: no CVA tenderness Skin General skin exam: elasticity normal, turgor normal and dry skin Neuro General: patient oriented x3 Psych Appearance: grossly normal Mental Status: mental status grossly normal Assessment & Plan Assessment & Plan (1) Screen for colon cancer: Code(s): Z12.11 - Encounter for screening for malignant neoplasm of colon Plan Patient denies any GI, cardiac or respiratory symptoms.? Denies any issues with anesthesia in the past.? History of sleep apnea.? Patient is using CPAP. No history infectious diseases in the past or present.? Not on any anticoagulation therapy.? No family or personal history of colon cancer or polyps.? Patient denies melena, hematochezia, unintentional weight loss or ribbon like stools.? Discussed at length the pre-procedure,? prep, diet & medications as well as what to expect prior, during and after the procedure.?? Stressed the importance of good bowel prep.? Recommended the use of Vaseline or Calmoseptine OTC & baby wipes with bowel movements to promote comfort.? ?Patient verbalizes understanding and agrees to plan of care.? She was given the opportunity to ask questions and all questions answered.? We will see her after the procedure Medications: New bisacodyl (Dulcolax (bisacodyl)) take 4 tabs at noon the day before your colonoscopy 20 mg (4 x 5 mg) PO ONCE 4 tabs 0RF constipation 1 day Z12.11 - Encounter for screening for malignant neoplasm of colon polyethylene glycol 3350 (Miralax) As directed by [facility]ology [facility] at [facility] 238 grams PO ONCE 238 grams 0RF Z12.11 - Encounter for screening for malignant neoplasm of colon Coding Level of Care Code New Pt Level 3 (88956) Diagnoses Screen for colon cancer Z12.11 Time Spent (min) 40 Comment 30 minutes spent with patient and additional 10 minutes spent reviewing her records
[2025-03-21 15:26] VITALS: BP 178/83; PULSE 86; O2SAT 96; BMI 42.5
== END 2025-03-21 16:12 | disposition home or self-care (01) ==
LOC: HO.HGI 15:16
PROVIDERS: PCP Internal Medicine; Visit Provider Nurse Practitioner Family
DX: Z01.818 Encounter for other preprocedural examination (principal); Z12.11 Encounter for screening for malignant neoplasm of colon
CPT/HCPCS: 99203

== ENCOUNTER → 2025-03-21 15:16 | Outpatient (BNVA) | payer OTHER, SELFPAY | PROVIDERS: PCP Internal Medicine; Visit Provider Nurse Practitioner Family | DX: Z12.11 Encounter for screening for malignant neoplasm of colon (principal) | CPT/HCPCS: 99202 ==

== ENCOUNTER 2025-06-21 08:00 | Outpatient (REF) | payer OTHER, SELFPAY ==
[2025-06-21 14:22] LABS: Cholesterol 190 mg/dL (<200); HDL Cholesterol 45 mg/dL (>40); Triglycerides 120 mg/dL (<150)
== END 2025-06-21 08:01 | disposition home or self-care (01) ==
LOC: HO.HMGCLDS 08:00
PROVIDERS: PCP Internal Medicine; Visit Provider Internal Medicine
DX: Z00.01 Encounter for general adult medical examination with abnormal findings (principal); E55.9 Vitamin D deficiency, unspecified; E78.1 Pure hyperglyceridemia; M85.852 Other specified disorders of bone density and structure, left thigh; E78.5 Hyperlipidemia, unspecified; I11.9 Hypertensive heart disease without heart failure; E66.01 Morbid (severe) obesity due to excess calories; R93.89 Abnormal findings on diagnostic imaging of other specified body structures; G47.33 Obstructive sleep apnea (adult) (pediatric); Z23 Encounter for immunization; Z99.89 Dependence on other enabling machines and devices; Z68.41 Body mass index [BMI] 40.0-44.9, adult; Z79.899 Other long term (current) drug therapy
CPT/HCPCS: 36415; 80061; 82306; 90471; 90656; 96127; 99396

== ENCOUNTER 2025-06-21 08:00 | Outpatient (AMB) | payer OTHER, SELFPAY ==
[2025-06-21 08:14] VITALS: BP 134/76; PULSE 57; RESP 18; TEMP 36.7; O2SAT 97; BMI 41.3
--- NOTE | 2025-06-21 08:14 | A.OFFPC_ITS ---
Vital Signs 06/21/25 08:14 Height 5 ft 3 in Weight 233 lb BMI 41.3 BP 134/76 Blood Pressure Location Lt brachial Position Sitting Respiration 18 Pulse 57 Pulse Source Pulse Oximeter Temp 98.0 F Temp Source Oral Pulse Oximetry (%) 97 Oxygen Delivery Method Room Air Intake Visit Reasons: Annual visti Intake Note: Pt is here today for PE. Last mammogram 03/19/25, papsmear 05/05/22, colonoscopy 02/20/20 Weatherseal Technician Required: No Allergies lisinopril (LISINOPRIL) Allergy (Unknown, Verified 06/21/25 08:15) COUGH metoprolol (METOPROLOL) Allergy (Unknown, Verified 06/21/25 08:15) ANKLE SWELLING, swelling Tobacco use date assessed: 06/21/25 Dental Screening Dental Screen Date: 06/21/25 Did you have a dental visit in the last 12 months?: No Did you have a dental problem in the last 6 months where you did not have access to dental care?: No Was dental information given to patient?: Patient declined [facility] Medical History (Updated 06/21/25 @ 09:09 by Calrine Kruse MD) Osteopenia of left femoral neck History of infiltrating ductal carcinoma of breast Endometrial polyp Atrial aneurysm Hypertensive cardiomegaly Uncontrolled hypertension REGIS on CPAP Breast cancer Morbid obesity Vitamin D deficiency Menopause Tubular adenoma of colon Infiltrating ductal carcinoma of right breast Hypertriglyceridemia Essential hypertension Surgical History Hx of cataract extraction History of colonoscopy History of lumpectomy of right breast Family History Father Unknown family medical history Cancer Pneumonia due to COVID-19 virus Mother Depression Mental health disorder Lung cancer Smoker Brother No problems noted. Brother No problems noted. Son No problems noted. Son No problems noted. Daughter No problems noted. Daughter No problems noted. 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 1. Little interest or pleasure in doing things: not at all 2. Feeling down, depressed, or hopeless: not at all 3. Trouble falling or staying asleep, or sleeping too much: not at all 4. Feeling tired or having little energy: not at all 5. Poor appetite or overeating: not at all 6. Feeling bad about yourself - or that you are a failure or have let yourself or your family down: not at all 7. Trouble concentrating on things, such as reading the newspaper or watching television: not at all 8. Moving or speaking so slowly that other people could have noticed. Or the opposite - being so fidgety or restless that you have been moving around a lot more than usual: not at all 9. Thoughts that you would be better off or of hurting yourself in some way: not at all Total score: 0 Depression Screening Interpretation: Negative Depression Screening Done: Yes 30675 - PHQ-9 Billing: Yes Source: Developed by Drs. Delano Coronel, Arely Tilley, Ernesto Arrieta and colleagues, with an educational isac from [employer]. Thrive Questionnaire Date Thrive assessed: 06/21/25 I am a: Patient What is your living situation today?: I have a steady place to live Within the past 12 months, did the food you bought not last and you didn't have the money to get more?: Never true Within the past 12 months, did you worry whether your food would run out before you got money to buy more?: Never true Do you have trouble paying for medicines?: No Do you have trouble getting transportation to medical appointments?: No Do you have trouble paying your heating and electricity bill?: No Do you have trouble taking care of your child, family member or friend?: No Do you have trouble with day-to-day activities such as bathing, preparing meals, shopping, managing finances, etc.?: No Are you currently unemployed and looking for a job?: No Are you interested in more education?: No Please select the resources that you would like help with: None Currently or been in a relationship where the following occur: No concerns reported THRIVE Score: 0 AUDIT C Alcohol Use Questionnaire (AUDIT-C) 1. How often do you have a drink containing alcohol?: Never 3. How often do you have six or more drinks on one occasion?: Never Total Score: 0 ALFREDO-7 AMB Questionnaire ALFREDO-7 Date ALFREDO - 7 assessed: 06/21/25 Feeling nervous, anxious, or on edge: 0 = Not at all Not being able to stop or control worryin = Not at all Worrying too much about different things: 0 = Not at all Trouble relaxin = Not at all Being so restless that it is hard to sit still: 0 = Not at all Becoming easily annoyed or irritable: 0 = Not at all Feeling afraid as if something awful might happen: 0 = Not at all Total ALFREDO-7 score (0-4 normal; 5-9 mild; 10-14 moderate; 15-21 severe): 0 Source: Developed by Drs. Delano Coronel, Arely Tilley, Ernesto Arrieta and colleagues, with an educational isac from [employer]. ALFREDO-7 Assessment Billing ALFREDO-7 Assessment Tool: ALFREDO-7 Assessment 25025 Physical exam (Primary Care) Vital Signs: Last Vital Signs Temp 98.0 F 06/21/25 08:14 Pulse 57 06/21/25 08:14 Resp 18 06/21/25 08:14 BP 134/76 06/21/25 08:14 Pulse Ox 97 06/21/25 08:14 Oxygen Delivery Method Room Air 06/21/25 08:14 BMI result Body Mass Index 41.3 Tobacco/Smoking Status: Tobacco use Status Tobacco use date assessed 06/21/25 06/21/25 08:20 Patient Tobacco Use Status Never used Tobacco 06/21/25 08:20 e-Cigarette/Vaping Use Never Used 06/21/25 08:20 PHQ-9: PHQ-9 Score PHQ-9: Total score 0 06/21/25 09:11 Depression Screening Interpretation: Negative Thrive Assessment: Date of Thrive Assessment Date Thrive assessed 06/21/25 06/21/25 08:20 Currently or been in a relationship where the following occur: No concerns reported Office Procedures Flu Questionnaire Does the patient have a severe egg allergy?: No Does the patient have severe life threatening allergies?: No Does the patient have a fever or illness today?: No Has the patient ever had Guillain-Powell Syndrome?: No Has the patient ever had any past reaction to a flu shot?: No Immunizations Fluarix [id number] (PF) 45 mcg (15 mcg x 3)/0.5 mL IM syringe Performing Provider: Carline Kruse MD Performing Location: [facility] [place] [facility] Administered by: Kinsey Raymundo CMA on 06/21/25 09:26 Dose Route Admin Location Dispensed Lot Number Expiration Date [facility] Toggle Press Folder And Feeder 0.5 mL IM Left Deltoid 0.5 mL [id number] 03/05/26 15333-581-13 [employer] VIS Given Date VIS Provided VIS Publication Date 06/21/25 Single Vaccine 24 Eligibility Eligibility Date Funding Source Not [facility] Eligible 06/21/25 Private Coding Level of Care Code Est Pt Prev Care 40-64y(51304) Diagnoses Vitamin D deficiency E55.9 Hypertriglyceridemia E78.1 Osteopenia of left femoral neck M85.852 Essential hypertension I10 Hypertensive cardiomegaly I11.9 Morbid obesity E66.01 Endometrial thickening on ultrasound R93.89 REGIS on CPAP G47.33; Z99.89 Annual visit for general adult medical examination with abnormal findings Z00.01 Additional Codes ALFREDO-7 Assessment Billing - ALFREDO-7 Assessment Tool: ALFREDO-7 Assessment 86963 ([id number]) PHQ-9 - 55063 - PHQ-9 Billing: Yes ([id number]) Assessment & Plan Assessment & Plan (1) Vitamin D deficiency: Code(s): E55.9 - Vitamin D deficiency, unspecified Category: Medical (2) Hypertriglyceridemia: Code(s): E78.1 - Pure hyperglyceridemia Category: Medical (3) Osteopenia of left femoral neck: Code(s): M85.852 - Other specified disorders of bone density and structure, left thigh Category: Medical (4) Essential hypertension: Code(s): I10 - Essential (primary) hypertension Category: Medical (5) Hypertensive cardiomegaly: Comment: follows w/HCS Code(s): I11.9 - Hypertensive heart disease without heart failure Category: Medical (6) Morbid obesity: Code(s): E66.01 - Morbid (severe) obesity due to excess calories Category: Medical (7) Endometrial thickening on ultrasound: Code(s): R93.89 - Abnormal findings on diagnostic imaging of other specified body structures Category: Medical (8) REGIS on CPAP: Code(s): G47.33 - Obstructive sleep apnea (adult) (pediatric); Z99.89 - Dependence on other enabling machines and devices Category: Medical (9) Annual visit for general adult medical examination with abnormal findings: Code(s): Z00.01 - Encounter for general adult medical examination with abnormal findings Orders: Orders Vitamin D 25-OH Total Today E55.9 - Vitamin D deficiency, unspecified, E78.1 - Pure hyperglyceridemia Influenza [id number] Immunization Today Z23 - Encounter for immunization Lipid Panel Today E55.9 - Vitamin D deficiency, unspecified, E78.1 - Pure hyperglyceridemia XR DEXA axial skeleton Today M85.852 - Other specified disorders of bone density and structure, left thigh
== END 2025-06-21 09:18 | disposition home or self-care (01) ==
LOC: HO.HMCC 08:01
PROVIDERS: PCP Internal Medicine; Visit Provider Internal Medicine
DX: Z23 Encounter for immunization (principal)

== ENCOUNTER 2025-07-27 12:08 | Day surgery (SDC) | payer OTHER, SELFPAY ==
--- NOTE | 2025-07-24 11:55 | HO.ANESPROP2 ---
Documented by User: Mariela Gonzalez NP 07/24/25 11:58 HPI - Anesthesia Eval Consult details Narrative: 59yo F for Colonoscopy [place] [facility] [place] Grade 2 diastolic dysfunction. Stable at 12/2024 office visit [facility] Active Problems Active Problems: All Active Problems Osteopenia of left femoral neck (Acute) Endometrial thickening on ultrasound (Acute) History of infiltrating ductal carcinoma of breast (Acute) Diastolic dysfunction (Acute) Uterine myoma (Acute) Atrial aneurysm (Acute) Hypertensive cardiomegaly (Acute) REGIS on CPAP (Acute) Morbid obesity (Acute) Vitamin D deficiency (Acute) Menopause (Acute) Hypertriglyceridemia (Acute) Essential hypertension (Acute) Past Medical History Medical History Osteopenia of left femoral neck History of infiltrating ductal carcinoma of breast Endometrial polyp Atrial aneurysm Hypertensive cardiomegaly Uncontrolled hypertension REGIS on CPAP Breast cancer Morbid obesity Vitamin D deficiency Menopause Tubular adenoma of colon Infiltrating ductal carcinoma of right breast Hypertriglyceridemia Essential hypertension Family History Family History Father Unknown family medical history Cancer Pneumonia due to COVID-19 virus Mother Depression Mental health disorder Lung cancer Smoker Brother No problems noted. Brother No problems noted. Son No problems noted. Son No problems noted. Daughter No problems noted. Daughter No problems noted. Paternal Grandmother Cancer Family history of problems with anesthesia: No Surgical History Surgical History Hx of cataract extraction History of colonoscopy History of lumpectomy of right breast History of Problems with Anesthesia: No Social History Social History Household Members: Spouse Housing: House Are you a primary direct support professional caregiver to a significant other at home: No Do you presently have visiting nurse or other home services: No Alcohol intake: current Alcohol intake frequency: holidays/special occasions only Patient Tobacco Use Status: Never used Tobacco e-Cigarette/Vaping Use: Never Used Second Hand Smoke Exposure: No Use of substances other than those prescribed or required for medical reasons: No Are you DNR?: No Advance Directives: No Advance Directives Information Provided: Yes Patient : No : No service: No Current occupational status: employed 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 Cognitive needs: No Hearing needs: No Vision needs: No Meds Allergies Allergy/AdvReac Type Severity Reaction Status Date / Time lisinopril (LISINOPRIL) Allergy Unknown COUGH Verified 06/28/25 16:37 metoprolol (METOPROLOL) Allergy Unknown ANKLE Verified 06/28/25 16:37 SWELLING, swelling Home Medications ?Medication ?Instructions ?Recorded ?Confirmed ?Last Taken ?Type cholecalciferol (vitamin D3) 50 50 mcg PO DAILY 09/16/20 07/27/25 Unknown History mcg (2,000 unit) capsule magnesium 200 mg tablet 200 mg PO DAILY 09/16/20 07/27/25 Unknown History vitamin K2 100 mcg capsule 100 mcg PO DAILY 10/11/23 07/27/25 Unknown History Exam Pertinent Lab Results Pertinent Lab Results: Laboratory Tests 02/28/25 16:07 WBC 9.1 Hgb 14.0 Hct 42.2 Plt Count 260 Sodium 141 Potassium 4.0 Chloride 109 H Carbon Dioxide 24 BUN 19 H Creatinine 0.74 Narrative Narrative: EKG 12/2024 EKG Details: EKG shows normal sinus rhythm with low-voltage QRS with poor R-wave progression most likely due to lead placement and body habitus ECHO 09/2023 Conclusions: - The left ventricular systolic function is normal. The calculated ejection fraction is 67% by biplane method. - Evidence suggests grade II (moderate) diastolic dysfunction. - There is an interatrial septal aneurysm seen bowing to the right. - No obvious valvular pathology seen on this study. Assessment and Plan Final Anesthetic Review Family History of Problems with Anesthesia: No History of Problems with Anesthesia: No Documented by User: Christie Rivera MD 07/27/25 13:34 [facility] Past Medical History Medical History Osteopenia of left femoral neck History of infiltrating ductal carcinoma of breast Endometrial polyp Atrial aneurysm Hypertensive cardiomegaly Uncontrolled hypertension REGIS on CPAP Breast cancer Morbid obesity Vitamin D deficiency Menopause Tubular adenoma of colon Infiltrating ductal carcinoma of right breast Hypertriglyceridemia Essential hypertension Family History Family History Father Unknown family medical history Cancer Pneumonia due to COVID-19 virus Mother Depression Mental health disorder Lung cancer Smoker Brother No problems noted. Brother No problems noted. Son No problems noted. Son No problems noted. Daughter No problems noted. Daughter No problems noted. Paternal Grandmother Cancer Surgical History Surgical History Hx of cataract extraction History of colonoscopy History of lumpectomy of right breast Social History Social History Household Members: Spouse Housing: House Are you a primary direct support professional caregiver to a significant other at home: No Do you presently have visiting nurse or other home services: No Alcohol intake: current Alcohol intake frequency: holidays/special occasions only Patient Tobacco Use Status: Never used Tobacco e-Cigarette/Vaping Use: Never Used Second Hand Smoke Exposure: No Use of substances other than those prescribed or required for medical reasons: No Are you DNR?: No Advance Directives: No Advance Directives Information Provided: Yes Patient : No : No service: No Current occupational status: employed 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 Cognitive needs: No Hearing needs: No Vision needs: No Meds Allergies Allergy/AdvReac Type Severity Reaction Status Date / Time lisinopril (LISINOPRIL) Allergy Unknown COUGH Verified 06/28/25 16:37 metoprolol (METOPROLOL) Allergy Unknown ANKLE Verified 06/28/25 16:37 SWELLING, swelling Home Medications ?Medication ?Instructions ?Recorded ?Confirmed ?Last Taken ?Type cholecalciferol (vitamin D3) 50 50 mcg PO DAILY 09/16/20 07/27/25 Unknown History mcg (2,000 unit) capsule magnesium 200 mg tablet 200 mg PO DAILY 09/16/20 07/27/25 Unknown History vitamin K2 100 mcg capsule 100 mcg PO DAILY 10/11/23 07/27/25 Unknown History Exam Airway Mallampati Class: III TM Dist: >3cm Neck ROM: Full Heart: rrr Lungs: cta Assessment and Plan Assessment Anesthesia Assessment: Anesthesia Plan Discussed and Chart Reviewed Final Anesthetic Review NPO: Yes ASA Class: III Final Preanesthetic Review: No Changes in Pt Med Stat, Meds/Allgs Chart Reviewed, Consent Obtained/Reviewed and Anes Risks/Benef Reviewed Patient Risk: Intermediate Procedure Risk: Low Anesthetic Plan Anesthetic Plan: MAC: Disposition: Standard PACU
--- NOTE | 2025-07-27 12:23 | MHC.SHP ---
Pre-Procedural Eval Section A - 24 Hr Update-Section A only Date of Service: 07/27/25 Section B - Complete if H&P > 30 days Chief Complaint: screening Details of Present Illness: History of infiltrating ductal carcinoma of breast Endometrial polyp Atrial aneurysm Hypertensive cardiomegaly Uncontrolled hypertension REGIS on CPAP Breast cancer Morbid obesity Vitamin D deficiency Menopause Tubular adenoma of colon Infiltrating ductal carcinoma of right breast Hypertriglyceridemia Essential hypertension Surgical History Hx of cataract extraction History of colonoscopy History of lumpectomy of right breast Allergies: Allergies Allergy/AdvReac Type Severity Reaction Status Date / Time lisinopril (LISINOPRIL) Allergy Unknown COUGH Verified 06/28/25 16:37 metoprolol (METOPROLOL) Allergy Unknown ANKLE Verified 06/28/25 16:37 SWELLING, swelling Review of Systems Review of Systems Comment: Ten point ROS negative Exam Exam Comment: Gen appear: No acute distress HEENT: no icterus Chest: No overt resp distress Abd: soft, nontender, nondistended Psych: Stable affect, answering questions appropriately Neuro: A/Ox3 noted to move all extremities spontaneously Ext: no peripheral edema Plan Diagnosis/Plan: Unchanged I have reviewed the history and physical and performed a pertinent physical examination on my patient. No changes have occurred unless specified. Time Spent With Patient Time: Total time managing care of this patient today ____ minutes.
[2025-07-27 12:44] VITALS: BMI 40.9
[2025-07-27 13:05] VITALS: BP 153/85; PULSE 70; RESP 16; TEMP 36.6; O2SAT 96
[2025-07-27 13:16] VITALS: BP 153/85; PULSE 54; RESP 16; TEMP 36.6; O2SAT 96
[2025-07-27] MEDS: Lactated Ringers 1,000 ML 100 ML IVCONT (13:33)
--- NOTE | 2025-07-27 14:38 | P.OPN-COLO_ITS ---
Colonoscopy Operative Note Operative Note Date of Service: 07/27/25 Narrative: Procedure: Colonoscopy Indication: Screening Endoscopist: Maria Teresa Garcia MD Anesthesia Provider: Jg Shah CRNA Anesthesia type: MAC Instrument: Olympus [id number] Consent: Indication, risks vs benefits, and alternatives were discussed with the patient who gave written informed consent to proceed. EKG, pulse, pulse oximetry and blood pressure were monitored throughout the procedure. Please see anesthesia flowsheet. Procedure: The patient was brought to the procedure room and placed in the left lateral decubitus position. An abdominal binder was placed on the lower abdomen. IV medications were administered by the anesthesia provider in attendance. A digital rectal exam was performed which was abnormal due to finding of hemorrhoids. A distal attachment cap was affixed to the tip of the colonoscope which was then inserted through the anus and advanced through the colon to the cecum at 80 cm. Appendiceal orifice and ileocecal valve were identified. Mucosa was carefully examined under high definition white light as the instrument was slowly withdrawn in a retrograde panoramic fashion. Retroflexion was performed in rectum. The procedure was not difficult. There were no immediate obvious complications. The quality of the prep was BBPS: 2+3+2 = adequate Withdrawal time 19 minutes. Limitations: No limitations. Findings: Mucosa: Normal to cecum and terminal ileum. [ Protruding lesions: * 3 sessile polyps of size 3-8 mm in transverse colon. Cold snare polypectomy was performed. The polyps were completely removed and retrieved. * 3 sessile polyp of size 2-4 mm in descending colon. Cold snare polypectomy was performed. The polyps were completely removed and retrieved. * Medium internal hemorrhoids without stigmata of recent bleeding. Excavated lesions: * Mild diverticulosis of sigmoid colon. Impression: 1. Normal colon mucosa 2. Total of 6 polyps removed 3. Diverticulosis 4. External and internal hemorrhoids Recommendations: - Follow path results. - Repeat colonoscopy in 3 years if 3 or more polyps are adenomas.
[2025-07-27 14:43] VITALS: BP 112/67; PULSE 71; RESP 17; TEMP 36.5; O2SAT 97
[2025-07-27 14:58] VITALS: BP 120/64; PULSE 51; RESP 16; TEMP 36.5; O2SAT 98
[2025-07-27 15:07] VITALS: BP 120/61; PULSE 62; RESP 16; TEMP 36.5; O2SAT 98
== END 2025-07-27 15:28 | disposition home or self-care (01) ==
PROVIDERS: PCP Internal Medicine; Visit Provider Internal Medicine
PROC: 0DJD8ZZ Inspection of Lower Intestinal Tract, Via Natural or Artificial Opening Endoscopic (ICD-10-PCS; CPT 45378; principal; 2025-07-27 13:30)
DX: Z12.11 Encounter for screening for malignant neoplasm of colon (principal); Z86.0101 Personal history of adenomatous and serrated colon polyps; Z86.0102 Personal history of hyperplastic colon polyps; K64.8 Other hemorrhoids; K64.4 Residual hemorrhoidal skin tags; K57.30 Diverticulosis of large intestine without perforation or abscess without bleeding; D12.4 Benign neoplasm of descending colon; D12.3 Benign neoplasm of transverse colon
CPT/HCPCS: 45385; 88305; J2704

== ENCOUNTER → 2025-07-27 12:08 | Outpatient (BNV) | payer OTHER, SELFPAY | PROVIDERS: PCP Internal Medicine; Visit Provider Internal Medicine | DX: Z12.11 Encounter for screening for malignant neoplasm of colon (principal); K63.5 Polyp of colon; K57.30 Diverticulosis of large intestine without perforation or abscess without bleeding; K64.8 Other hemorrhoids | CPT/HCPCS: 45385 ==